=== PATIENT | male | born 1955 | race Caucasian/White ===

== ENCOUNTER 2022-09-15 10:33 | Inpatient (IN) | payer MEDICARE, OTHER ==
[2022-09-15] MEDS ORDERED: VANCOMYCIN IV PER PHARMACY 1 EACH MISC MISCELLANE PRN (10:54)
[2022-09-15] MEDS ORDERED: VANCOMYCIN 1,500 MG in SODIUM CHLORIDE 0.9% 500 ML 500 ML IVPB STA (10:58)
--- NOTE | 2022-09-15 11:18 | ED ---
General Adult HPI - General Chief complaint: Shortness of Breath Stated complaint: SOB Time Seen by Provider: 09/15/22 10:42 Source: patient, RN notes reviewed, old records reviewed Mode of arrival: ambulatory Limitations: no limitations - History of Present Illness Initial comments: Patient is a 67-year-old male who does not follow up with a physician presents emergency Department complaining of shortness of breath for one week. States it has been getting noticeably worse over the last week. States he may been present previously. Normally sleeps on 3 pillows at home and still has shortness of breath. Denies paroxysmal nocturnal dyspnea. Endorses worsening generalized belly distention with no pain as well as bilateral lower extremity swelling. Denies chest pain. Does endorse exertional shortness of breath. 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 Denies any nausea, vomiting, abdominal pain. Denies any cardiac history. States he does not follow up with her physician. Has not is some weeping excoriations located on the right lower extremity as well as a wound located over the dorsal aspect of the left foot. Denies any pain in the right leg but does have some pain in the left foot. No known history of diabetes. States the wound started is a bruise but is now an open wound. Some mild purulent discharge per patient. No other acute complaints at this time. Presents for further evaluation at this time. - Related Data Home Medications Medication Instructions Recorded Confirmed No Known Home Medications 09/15/22 09/15/22 Allergies Allergy/AdvReac Type Severity Reaction Status Date / Time No Known Allergies Allergy Verified 09/15/22 10:54 Review of Systems ROS Statement: Those systems with pertinent positive or pertinent negative responses have been documented in the HPI. Review of Systems: CONST: Denies fever EYES: Denies blurry vision ENT: Denies nasal congestion C/V: Denies Chest pain RESP: Endorses Shortness of breath GI: Denies abdominal pain : Denies dysuria SKIN: Endorses left foot wound MSK: Denies joint pain. NEURO: Denies headache ROS Other: All systems not noted in ROS Statement are negative. Past Medical History Past Medical History: No Reported History History of Any Multi-Drug Resistant Organisms: None Reported Past Surgical History: No Surgical Hx Reported Past Psychological History: No Psychological Hx Reported Smoking Status: Current every day smoker Past Alcohol Use History: None Reported Past Drug Use History: Marijuana General Exam - General Exam Comments Initial Comments: General: Appears in no acute distress. HEAD: Normal with no signs of head trauma. EYES: PERRLA, EOMI, conjunctiva normal, no discharge. ENT: Hearing grossly intact, normal oropharynx. RESPIRATORY: Mild coarse breath sounds in bilateral lung bases. No wheezing. No hypoxia at rest. Mild increased work of breathing. C/V: Regular rate and rhythm. S1 and S2 auscultated, significant bilateral lower extremity symmetrical pitting edema, peripheral pulses 2+ and intact throughout ABD: Abdomen is mildly distended. Soft and nontender. EXT: Normal range of motion, no obvious deformity SKIN: Appears to be venous stasis wound located over the left dorsal foot. Also has a weeping venous-stasis excoriations located over the right aguilar. NEURO: Alert and oriented 4. Limitations: no limitations Course Vital Signs 09/15/22 09/15/22 09/15/22 10:39 11:53 12:44 Temperature 97.9 F Pulse Rate 99 94 88 Respiratory 24 22 18 Rate Blood Pressure 121/84 116/82 O2 Sat by Pulse 96 97 98 Oximetry Medical Decision Making - Medical Decision Making Was pt. sent in by a medical professional or institution (, PA, PASSENGER VESSEL CHEF, urgent care, hospital, or penitentiary...) When possible be specific @ -No Did you speak to anyone other than the patient for history (EMS, parent, family, police, friend...)? What history was obtained from this source @ -No Did you review nursing and triage notes (agree or disagree)? Why? @ -I reviewed and agree with nursing and triage notes Were old charts reviewed (outside hosp., previous admission, EMS record, old EKG, old radiological studies, urgent care reports/EKG's, penitentiary records)? Report findings @ -No old charts were reviewed Differential Diagnosis (chest pain, altered mental status, abdominal pain women, abdominal pain men, vaginal bleeding, weakness, fever, dyspnea, syncope, heada basil, dizziness, GI bleed, back pain, seizure, CVA, palpatations, mental health, musculoskeletal)? @ -Differential Dyspnea: Coronary syndrome, arrhythmia, tamponade, asthma, COPD, pulmonary embolism, pneumonia, pneumothorax, pulmonary effusion, anaphylaxis, diabetic ketoacidosis, flailed chest, pulmonary contusion, diaphragmatic rupture, anemia, neuromuscular, this is not meant to be an all-inclusive list. EKG interpreted by me (3pts min.). @ -As above X-rays interpreted by me (1pt min.). @ -Chest x-ray shows right-sided pleural effusions as well as a bilateral pulmonary vascular congestion. Foot x-ray shows cellulitis. No osteomyelitis. CT interpreted by me (1pt min.). @ -CT PE negative for pulmonary embolism. CT of the pelvis shows ascites but no other acute intra-abdominal process. U/S interpreted by me (1pt. min.). @ -None done What testing was considered but not performed or refused? (CT, X-rays, U/S, labs)? Why? @ -None What meds were considered but not given or refused? Why? @ -None Did you discuss the management of the patient with other professionals (professionals i.e. , PA, PASSENGER VESSEL CHEF, lab, RT, psych nurse, health social work professor, trimmer machine, teacher, production officer, case management social worker)? Give summary @ -No Was smoking cessation discussed for >3mins.? @ -No Was critical care preformed (if so, how long)? @ -No Were there social determinants of health that impacted care today? How? (Homelessness, low income, unemployed, alcoholism, drug addiction, transportation, low edu. Level, literacy, decrease access to med. care, fpc, rehab)? @ -No Was there de-escalation of care discussed even if they declined (Discuss DNR or withdrawal of care, Hospice)? DNR status @ -No What co-morbidities impacted this encounter? (DM, HTN, Smoking, COPD, CAD, Cancer, CVA, ARF, Chemo, Hep., AIDS, mental health diagnosis, sleep apnea, morbid obesity)? @ -None Was patient admitted / discharged? Hospital course, mention meds given and route, prescriptions, significant lab abnormalities, going to OR and other p ertinent info. @ -Based on the patient's presentation and physical exam, I do think thinks that he is having cardiopulmonary etiology for his current symptoms. I suspect diagnosis of congestive heart failure as he is having worsening exertional dyspnea, abdominal distention, shortness of breath, lower extremity edema. We will obtain cardio pulmonary labs, as well as an x-ray of the left foot and chest x-ray. He'll be started on vancomycin after obtaining wound cultures as well as blood cultures as the patient does appear to have a left foot infection and cellulitis with an open wound. He was in agreement this plan. Vital signs are within acceptable limits at rest. We will walk the patient to assess for any hypoxia. He is in some increased work of breathing at rest. Patient's chest x-ray shows bilateral pulmonary vascular congestion as well as right-sided pleural effusion. EKG shows no signs of acute ischemia. Laboratory studies are remarkable for a elevated BNP of 8800. Troponin is undetectable. On reevaluation, due to the patient's increased work of breathing, and cannot definitively rule out a clot at this time we did discuss obtaining CT imaging w hich we will do at this time. I'll also allow us to further characterize the patient's pleural effusion on the right. He was in agreement this plan. CT PE negative for pulmonary embolism. CT abdomen pelvis negative for any obvious acute process other than ascites likely from his CHF. I discussed results with the patient. He expressed understanding He will be admitted. Echo is ordered. Started on Lasix. Cardiology consulted. Discussed the admission with the admitting team Dr. Pete who accepted the patient. Undiagnosed new problem with uncertain prognosis? @ -No Drug Therapy requiring intensive monitoring for toxicity (Heparin, Nitro, Insulin, Cardizem)? @ -No Were any procedures done? @ -No Diagnosis/symptom? @ -New-onset CHF Acute, or Chronic, or Acute on Chronic? @ -Acute Uncomplicated (without systemic symptoms) or Complicated (systemic symptoms)? @ -Complicated Side effects of treatment? @ -none Exacerbation, Progression, or Severe Exacerbation] @ -no Poses a threat to life or bodily function? @ -Yes, if untreated can result in significant morbidity and mortality. Diagnosis/symptom? @ -Left foot cellulitis Acute, or Chronic, or Acute on Chronic? @ -Acute Uncomplicated (without systemic symptoms) or Complicated (systemic symptoms)? @ -Uncomplicated Side effects of treatment? @ -none Exacerbation, Progression, or Severe Exacerbation] @ -no Poses a threat to life or bodily function? @ -no - Lab Data Result diagrams: 09/15/22 11:07 09/15/22 11:45 Lab Results 09/15/22 09/15/22 09/15/22 Range/Units 11:07 11:07 11:07 WBC 7.7 (3.8-10.6) k/uL RBC 5.25 (4.30-5.90) m/uL Hgb 14.9 (13.0-17.5) gm/dL Hct 44.6 (39.0-53.0) % MCV 85.0 (80.0-100.0) fL MCH 28.3 (25.0-35.0) pg MCHC 33.4 (31.0-37.0) g/dL RDW 13.8 (11.5-15.5) % Plt Count 205 (150-450) k/uL MPV 11.4 Neutrophils % 78 % Lymphocytes % 14 % Monocytes % 5 % Eosinophils % 1 % Basophils % 0 % Neutrophils # 6.1 (1.3-7.7) k/uL Lymphocytes # 1.1 (1.0-4.8) k/uL Monocytes # 0.4 (0-1.0) k/uL Eosinophils # 0.1 (0-0.7) k/uL Basophils # 0.0 (0-0.2) k/uL PT 11.7 (9.0-12.0) sec INR 1.1 (<1.2) APTT 27.4 (22.0-30.0) sec D-Dimer 0.53 (<0.60) mg/L FEU Sodium (137-145) mmol/L Potassium (3.5-5.1) mmol/L Chloride (98-107) mmol/L Carbon Dioxide (22-30) mmol/L Anion Gap mmol/L BUN (9-20) mg/dL Creatinine (0.66-1.25) mg/dL Est GFR (CKD-EPI)AfAm (>60 ml/min/1.73 sqM) Est GFR (CKD-EPI)NonAf (>60 ml/min/1.73 sqM) Glucose (74-99) mg/dL Plasma Lactic Acid Maikel (0.7-2.0) mmol/L Calcium (8.4-10.2) mg/dL Magnesium (1.6-2.3) mg/dL Total Bilirubin (0.2-1.3) mg/dL AST (17-59) U/L ALT (4-49) U/L Alkaline Phosphatase (38-126) U/L Troponin I (0.000-0.034) ng/mL NT-Pro-B Natriuret Pep pg/mL Total Protein (6.3-8.2) g/dL Albumin (3.5-5.0) g/dL Influenza Type A (PCR) (Not Detectd) Influenza Type B (PCR) (Not Detectd) RSV (PCR) (Not Detectd) SARS-CoV-2 (PCR) (Not Detectd) 09/15/22 09/15/22 09/15/22 Range/Units 11:08 11:45 11:45 WBC (3.8-10.6) k/uL RBC (4.30-5.90) m/uL Hgb (13.0-17.5) gm/dL Hct (39.0-53.0) % MCV (80.0-100.0) fL MCH (25.0-35.0) pg MCHC (31.0-37.0) g/dL RDW (11.5-15.5) % Plt Count (150-450) k/uL MPV Neutrophils % % Lymphocytes % % Monocytes % % Eosinophils % % Basophils % % Neutrophils # (1.3-7.7) k/uL Lymphocytes # (1.0-4.8) k/uL Monocytes # (0-1.0) k/uL Eosinophils # (0-0.7) k/uL Basophils # (0-0.2) k/uL PT (9.0-12.0) sec INR (<1.2) APTT (22.0-30.0) sec D-Dimer (<0.60) mg/L FEU Sodium (137-145) mmol/L Potassium (3.5-5.1) mmol/L Chloride (98-107) mmol/L Carbon Dioxide (22-30) mmol/L Anion Gap mmol/L BUN (9-20) mg/dL Creatinine (0.66-1.25) mg/dL Est GFR (CKD-EPI)AfAm (>60 ml/min/1.73 sqM) Est GFR (CKD-EPI)NonAf (>60 ml/min/1.73 sqM) Glucose (74-99) mg/dL Plasma Lactic Acid Maikel 1.1 (0.7-2.0) mmol/L Calcium (8.4-10.2) mg/dL Magnesium (1.6-2.3) mg/dL Total Bilirubin (0.2-1.3) mg/dL AST (17-59) U/L ALT (4-49) U/L Alkaline Phosphatase (38-126) U/L Troponin I <0.012 (0.000-0.034) ng/mL NT-Pro-B Natriuret Pep pg/mL Total Protein (6.3-8.2) g/dL Albumin (3.5-5.0) g/dL Influenza Type A (PCR) Not Detected (Not Detectd) Influenza Type B (PCR) Not Detected (Not Detectd) RSV (PCR) Not Detected (Not Detectd) SARS-CoV-2 (PCR) Not Detected (Not Detectd) 09/15/22 09/15/22 Range/Units 11:45 11:45 WBC (3.8-10.6) k/uL RBC (4.30-5.90) m/uL Hgb (13.0-17.5) gm/dL Hct (39.0-53.0) % MCV (80.0-100.0) fL MCH (25.0-35.0) pg MCHC (31.0-37.0) g/dL RDW (11.5-15.5) % Plt Count (150-450) k/uL MPV Neutrophils % % Lymphocytes % % Monocytes % % Eosinophils % % Basophils % % Neutrophils # (1.3-7.7) k/uL Lymphocytes # (1.0-4.8) k/uL Monocytes # (0-1.0) k/uL Eosinophils # (0-0.7) k/uL Basophils # (0-0.2) k/uL PT (9.0-12.0) sec INR (<1.2) APTT (22.0-30.0) sec D-Dimer (<0.60) mg/L FEU Sodium 138 (137-145) mmol/L Potassium 4.2 (3.5-5.1) mmol/L Chloride 102 (98-107) mmol/L Carbon Dioxide 30 (22-30) mmol/L Anion Gap 6 mmol/L BUN 21 H (9-20) mg/dL Creatinine 0.82 (0.66-1.25) mg/dL Est GFR (CKD-EPI)AfAm >90 (>60 ml/min/1.73 sqM) Est GFR (CKD-EPI)NonAf >90 (>60 ml/min/1.73 sqM) Glucose 219 H (74-99) mg/dL Plasma Lactic Acid Maikel (0.7-2.0) mmol/L Calcium 8.9 (8.4-10.2) mg/dL Magnesium 1.7 (1.6-2.3) mg/dL Total Bilirubin 0.7 (0.2-1.3) mg/dL AST 17 (17-59) U/L ALT 18 (4-49) U/L Alkaline Phosphatase 82 (38-126) U/L Troponin I (0.000-0.034) ng/mL NT-Pro-B Natriuret Pep 8850 pg/mL Total Protein 6.2 L (6.3-8.2) g/dL Albumin 3.6 (3.5-5.0) g/dL Influenza Type A (PCR) (Not Detectd) Influenza Type B (PCR) (Not Detectd) RSV (PCR) (Not Detectd) SARS-CoV-2 (PCR) (Not Detectd) - EKG Data -: EKG Interpreted by Me EKG Comments: 12-lead Electrocardiogram Interpretation Note EKG was reviewed and interpreted by myself. 12-lead ECG performed at 1048 is interpreted by me as revealing normal sinus rhythm at a rate of 96 beats per minute. With indeterminate axis. NE interval is 148 ms, QRS duration is 154 ms, QTc is 446 ms.. Patient does have right bundle-branch block morphology with some T-wave inversions located in V2 through V4. No ST segment elevations or depressions of note. No prior EKG for comparison. R wave progression across the precordium was satisfactory. No prior EKG for comparison. Disposition Clinical Impression: CHF (congestive heart failure), Cellulitis, Dyspnea Disposition: ADMITTED IP TO THIS HOSP Condition: Stable Referrals: None,Stated [Primary Care Provider] - 1-2 days Time of Disposition: 14:25
--- NOTE | 2022-09-15 11:28 | XR ---
EXAMINATION TYPE: XR chest 2V DATE OF EXAM: 09/15/2022 COMPARISON: NONE HISTORY: Shortness of breath TECHNIQUE: Frontal and lateral views of the chest are obtained. FINDINGS: Scattered senescent parenchymal changes noted. Hyperinflation compatible with COPD. Right lower lobe infiltrate and pleural effusion noted. Correlate for pneumonia. Heart size is stable. Mediastinal structures are stable and grossly unremarkable. No evidence for hilar prominence. Degenerative changes dorsal spine. IMPRESSION: 1. Right lower lobe infiltrate and pleural effusion noted. Correlate for pneumonia.
--- NOTE | 2022-09-15 11:29 | XR ---
EXAMINATION TYPE: XR foot limited LT DATE OF EXAM: 09/15/2022 CLINICAL HISTORY: pain TECHNIQUE: Frontal, lateral and oblique images of the left foot are obtained. COMPARISON: None. FINDINGS: There is no acute fracture/dislocation evident. The joint spaces appear within normal yan its. Soft tissue swelling noted overlying the dorsum of the foot. Vascular calcifications identified. No bony destructive process identified at this time. IMPRESSION: Correlate for soft tissue cellulitis.
[2022-09-15 11:33] LABS: Basophils % (A) 0 %; Eosinophils # (A) 0.1 k/uL (0-0.7); Eosinophils % (A) 1 %; HCT 44.6 % (39.0-53.0); HGB 14.9 gm/dL (13.0-17.5); Lymphocytes # (A) 1.1 k/uL (1.0-4.8); Lymphocytes % (A) 14 %; MCH 28.3 pg (25.0-35.0); MCHC 33.4 g/dL (31.0-37.0); Mean Platelet Volume 11.4; Monocytes # (A) 0.4 k/uL (0-1.0); Monocytes % (A) 5 %; Neutrophils # (A) 6.1 k/uL (1.3-7.7); Neutrophils % (A) 78 %; Platelet Count 205 k/uL (150-450); RBC 5.25 m/uL (4.30-5.90); RDW 13.8 % (11.5-15.5); WBC 7.7 k/uL (3.8-10.6)
[2022-09-15 12:10] LABS: INR 1.1 (<1.2); Partial Thromboplastin Time 27.4 sec (22.0-30.0); Prothrombin Time 11.7 sec (9.0-12.0)
[2022-09-15 12:33] LABS: ALT 18 U/L (4-49); AST 17 U/L (17-59); African American GFR (CKD) >90 (>60 ml/min/1.73 sqM); Albumin 3.6 g/dL (3.5-5.0); Alkaline Phosphatase 82 U/L (38-126); Anion Gap 6 mmol/L; Blood Urea Nitrogen 21 mg/dL (9-20); Calcium 8.9 mg/dL (8.4-10.2); Carbon Dioxide 30 mmol/L (22-30); Chloride 102 mmol/L (98-107); Glucose 219 mg/dL (74-99); Magnesium 1.7 mg/dL (1.6-2.3); Non-African American GFR(CKD) >90 (>60 ml/min/1.73 sqM); Potassium 4.2 mmol/L (3.5-5.1); Sodium 138 mmol/L (137-145); Total Bilirubin 0.7 mg/dL (0.2-1.3); Total Protein 6.2 g/dL (6.3-8.2)
--- NOTE | 2022-09-15 14:09 | CT ---
EXAMINATION TYPE: CT chest angio for PE DATE OF EXAM: 09/15/2022 COMPARISON: None HISTORY: SOB CT DLP: 698.3 mGycm CONTRAST: CT chest with contrast and 3D reconstruction with MIP imaging is performed with IV Contrast, patient injected with 100 mL of Isovue 300. Contrast-enhanced CT of the chest was performed through the course of the pulmonary arteries with mackenzie g and mediastinal window settings submitted. 3D reconstruction with MIP imaging was also performed. PULMONARY ARTERIES: The pulmonary arteries and their major tributaries are patent. I do not see gio dence for sizable filling defect to suggest pulmonary embolic process. LUNGS: The lungs are clear and free of infiltrate. No evidence for atelectasis. No pulmonary nodule or mass is detected. Moderate bilateral pleural effusions noted right greater than left with maximal AP dimension of 6.2 cm on the right and approximately 3.4 cm in length. Bilateral compressive atelec tasis noted. MEDIASTINUM: Thoracic aorta is of normal caliber,however, evaluation is limited given timing of the contrast bolus. If there is concern for thoracic aortic pathology consider MICHELLE. Correlate clinicall y . The heart is not enlarged. No evidence for mediastinal mass. No mediastinal lymph nodes greater than 1cm. HILAR STRUCTURES: No evidence for mass. No hilar lymph nodes greater than 1 cm. UPPER ABDOMEN: No significant abnormality is seen. IMPRESSION: 1. No evidence for Pulmonary embolism at this time.
--- NOTE | 2022-09-15 14:12 | CT ---
EXAMINATION TYPE: CT abdomen pelvis w con DATE OF EXAM: 09/15/2022 COMPARISON: None HISTORY: SOB, abdominal tenderness CT DLP: 2668.1 mGycm CONTRAST: CT scan of the abdomen and pelvis is performed without Oral Contrast and with IV Contrast, patient in jected with 100 mL of Isovue 300. FINDINGS: LUNG BASES-: No visible nodule. No infiltrate. Bilateral pleural effusions noted right greater than left with compressive atelectasis. LIVER/GB: No calcified gallstones. No space occupying hepatic lesion. Biliary tree is of normal ca liber. There is a small amount of ascites surrounding the liver. Ascites extends into the right parac olic gutter and into the pelvis. PANCREAS: No inflammation. No distinct mass. SPLEEN: No splenic enlargement. No lesion seen. Fluid also surrounds the spleen. ADRENALS: No nodule. No thickening. KIDNEYS/BLADDER: No hydronephrosis. 4 mm nonobstructing calculus upper pole left kidney. No distinct renal mass. Urinary bladder grossly unremarkable. BOWEL: Normal appendix. Normal bowel caliber. There is wall thickening of jejunal loops may reflect enteritis. Moderate fecal stasis noted. GENITAL ORGANS: No gross abnormality. LYMPH NODES: No greater than 1cm abdominal or pelvic lymph nodes are appreciated. AORTA: No significant abnormality. OSSEOUS STRUCTURES: No significant abnormality is seen. OTHER: No significant additional abnormality is seen. IMPRESSION: 1. Correlate for small bowel enteritis. 2. Moderate bilateral pleural effusions and basilar compressive atelectasis. 3. Mild ascites throughout the abdomen. 4. Nonobstructing left renal calculus.
[2022-09-15] MEDS ORDERED: FUROSEMIDE 10 MG/ML 4 ML VIAL IV STA (14:36)
[2022-09-15] MEDS ORDERED: NALOXONE 0.4 MG/ML 1 ML VIAL IV PRN (14:37)
[2022-09-15] MEDS: HEPARIN SODIUM,PORCINE/PF 5,000 UNIT/0.5 ML SYRINGE SQ SCH ×2 (18:05→20:01)
[2022-09-15] MEDS: FUROSEMIDE 10 MG/ML 4 ML VIAL IV SCH (20:01)
[2022-09-16] MEDS ORDERED: VANCOMYCIN 1,500 MG in SODIUM CHLORIDE 0.9% 500 ML 500 ML IVPB SCH ×2
--- NOTE | 2022-09-16 02:15 | P.HPIM ---
History of Present Illness H&P Date: 09/15/22 Chief Complaint: Shortness of breath Patient is a 67-year-old male without significant past medical history, currently everyday smoker and daily marijuana use presents to ER with complaints of worsening shortness of breath, exertional dyspnea during the last 2 days. Symptoms have been present for the past 2 weeks patient also felt very weak. He has been having lower extremity worsening swelling. Was also having increased abdominal girth. Patient was using 3 pillows at home but still is becoming short of breath. Denies any complaints of chest pain. No nausea vomiting abdominal pain or diarrhea. Denies recent illnesses. No prior history of coronary artery disease.. Patient was having severe leg swelling and does have a wound over the dorsum of the left foot. No prior history of diabetes. Denies any fever or chills. Chest x-ray showed right lower lobe infiltrate and pleural effusion noted. Correlate for pneumonia. Foot x-ray showed correlate for soft tissue cellulitis EKG showed sinus rhythm. CTA chest showed no evidence for PE. Lungs are clear and free of infiltrate. No pulmonary nodules or masses detected. Moderate bilateral pleural effusions noted right greater than left with bilateral compressive atelectasis. CT of the abdomen pelvis. Correlate for small bowel enteritis. Mild ascites throughout the abdomen. Nonobstructing renal calculus. Laboratory data showed WBC 7.7 hemoglobin 14.9 and platelets 205 D-dimer 0.53 Sodium 138 potassium 4.2 chloride 102 bicarb is 30 BUN 21 creatinine 0.8 and blood sugar is 219 Calcium 8.1 Loramyc not elevated proBNP 88.0 Influenza A, B and COVID-19 PCR and RSV not detected. Review of Systems Constitutional: Patient denies any fever or chills . Patient does have ge neralized weakness and weight gain. Abdomen: Patient denied any nausea or vomiting or abd. pain Cardiovascular: Patient denies any chest pain. Patient does have short of breath no palpitations. Bilateral lower extremity swelling. Orthopnea. No PND. Respiratory: patient denied any cough . no sputum production. Does have shortness of breath Neurologic: Patient denied any numbness or tingling headache. Musculoskeletal: Patient denies any complaints of joint swelling or deformity. Skin: Negative Psychiatric: Negative Endocrine: No heat or cold intolerance. No recent weight gain. Genitourinary: No dysuria or hematuria. All other 14 point ROS negative except the above Past Medical History Past Medical History: No Reported History Additional Past Medical History / Comment(s): states it has been decades since he saw a physician History of Any Multi-Drug Resistant Organisms: None Reported Past Surgical History: No Surgical Hx Reported Past Anesthesia/Blood Transfusion Reactions: No Reported Reaction Past Psychological History: No Psychological Hx Reported Smoking Status: Current every day smoker Past Alcohol Use History: None Reported Past Drug Use History: Marijuana Additional Drug Use History / Comment(s): pt is a daily marijuana smoker Medications and Allergies Home Medications Medication Instructions Recorded Confirmed Type No Known Home Medications 09/15/22 09/15/22 History Allergies Allergy/AdvReac Type Severity Reaction Status Date / Time No Known Allergies Allergy Verified 09/15/22 10:54 Physical Exam Vitals: Vital Signs Temp Pulse Pulse Resp BP BP Pulse Ox 09/15/22 17:41 98.7 F 80 20 118/75 99 09/15/22 15:49 98 18 112/78 99 09/15/22 12:44 88 18 116/82 98 09/15/22 11:53 94 22 97 09/15/22 10:39 97.9 F 99 24 121/84 96 Intake and Output 09/15/22 09/15/22 09/15/22 06:59 14:59 22:59 Other: Weight 99.79 kg 99.79 kg PHYSICAL EXAMINATION: Patient is sitting on the side of the bed. Appears to be in distress due to shortness of breath., awake alert and oriented.. HEENT: Normocephalic. Neck is supple. Pupils reactive. Nostrils clear. Oral cavity is moist. Neck reveals no JVD, carotid bruits, or thyromegaly. CHEST EXAMINATION: Trachea is central. Symmetrical expansion. Bibasilar diminished sounds and no wheezing. Nonlabored breathing.. CARDIAC: Normal S1, S2 with no gallops. No murmurs ABDOMEN: Soft. Bowel sounds present. Nontender. No organomegaly. No abdominal bruits. Extremities: Bilateral lower extremity with 3+ edema. No clubbing or cyanosis. Left dorsal foot wound 4 x 4 cm with thick eschar and surrounding redness. Neurologically awake, alert, oriented x3 with well-coordinated movements. No focal deficits noted Skin: No rash or skin lesions. Psychiatric: Coperative. Nonsuicidal, Musculoskeletal: No joint swelling or deformity. Normal range of motion. Results CBC & Chem 7: 09/16/22 08:28 09/16/22 08:28 Labs: Abnormal Lab Results - Last 24 Hours (Table) 09/15/22 Range/Units 11:45 BUN 21 H (9-20) mg/dL Glucose 219 H (74-99) mg/dL Total Protein 6.2 L (6.3-8.2) g/dL Microbiology - Last 24 Hours (Table) 09/15/22 11:47 Wound Culture - Preliminary Foot - Left 09/15/22 11:47 Anaerobic Culture - Preliminary Foot - Left Thrombosis Risk Factor Assmnt - DVT/VTE Prophylaxis DVT/VTE Prophylaxis: Pharmacologic Prophylaxis ordered - Choose All That Apply Each Factor Represents 1 point: Heart failure (<1month), Medical pt on bed rest, Obesity (BMI >25), Swollen legs (current) Other Risk Factors: Yes Each Risk Factor Represents 2 Points: Age 61-74 years Other congenital or acquired thrombophilia - If yes, enter type in comment: No Thrombosis Risk Factor Assessment Total Risk Factor Score: 6 Thrombosis Risk Factor Assessment Level: High Risk Assessment and Plan Assessment: Acute CHF. Ejection fraction not known. New onset. Acute hypoxic respiratory failure secondary to above Bilateral pleural effusion and mild ascites likely due to CHF. Left foot wound on the dorsal surface with surrounding cellulitis Hyperglycemia. Follow-up A1c level. Morbid obesity with BMI 40.5 Ongoing nicotine addiction and marijuana use DVT prophylaxis with heparin subcu Plan: Patient will be continued on telemetry monitoring. Continue with Lasix 40 mg every 12 hourly and monitor renal function closely. Aspirin and lipid panel was ordered. 2D echocardiogram. Cardiology was consulted for evaluation. Patient will be continued on vancomycin and infectious is consult. Continue with wound care. Follow-up closely and prognosis guarded at this time. Time with Patient: Greater than 30
[2022-09-16] MEDS: VANCOMYCIN 1,500 MG in SODIUM CHLORIDE 0.9% 500 ML 500 ML IVPB SCH ×2 (06:25→17:28)
[2022-09-16] MEDS: FUROSEMIDE 10 MG/ML 4 ML VIAL IV SCH ×2 (08:10→20:28)
[2022-09-16] MEDS: carvediloL 3.125 MG TAB PO SCH ×2 (08:10→16:17)
[2022-09-16] MEDS: ASPIRIN 81 MG PO SCH (08:10)
[2022-09-16] MEDS: HEPARIN SODIUM,PORCINE/PF 5,000 UNIT/0.5 ML SYRINGE SQ SCH ×3 (08:10→23:55)
--- NOTE | 2022-09-16 09:08 | P.CRDCN ---
History of Present Illness Consult date: 09/16/22 Consult reason: congestive heart failure (new) History of present illness: History of present illness: This is a 67-year-old male that does not follow with a PCP usually goes to urgent care for medical care. Patient denies history of cardiac disease. Patient is not on any home medications. We have been asked to evaluate the patient for new heart failure. Patient presented to the hospital due to shortness of breath going on for a week and gradually worsening. He denies having any chest pain. Has been sleeping on 3 pillows. No PND. Patient has had increased edema to the lower extremities and cellulitis was diagnosed of the left lower leg. No fever or chills. No cough. EKG sinus rhythm with left ventricle hypertrophy, right bundle branch block Troponin negative 1. ProBNP 8850, CBC within normal limits. BUN 21, creatinine 0.8. Potassium 4.2. Blood sugar 219. Patient denies known history of diabetes Chest x-ray: Right lower lobe infiltrate and pleural effusion correlate for pneumonia. CTA no pulmonary embolism. Moderate bilateral pleural effusion right greater than left. Review Of Systems: At the time of my evaluation: Constitutional: No fever, no chills. No weakness, fatigue or lethargy. EENT: No headache. No dizziness. Lungs: Reports shortness of breath, cough, no sputum production. No wheezing. Cardiovascular: No chest pain, reports lower extremity edema. No palpitations. No paroxysmal nocturnal dyspnea. Reports orthopnea. No lightheadedness or dizziness. No syncopal episodes. Abdominal: No abdominal pain. No nausea, vomiting. No diarrhea. No constipation. No bloody or tarry stools. Musculoskeletal: No myalgias. No muscle weakness, no frequent falls. No back pain. No neck pain. Integumentary: Cellulitis left lower leg, linear abrasions to the right lower leg. No rash. No unusual bruising. Neurologic: No aphasia. No facial droop. No change in mentation. No head injury. No headache. Physical examination: Gen: This is a morbidly obese 67-year-old male. Dressing appears to be comfortable. No acute distress. VS: reviewed HEENT: Head is atraumatic, normocephalic. Pupils equal, round. Sclerae is anicteric. NECK: Supple. No JVD. . LUNGS: Diminished bilaterally. No wheezes or rhonchi. No intercostal retractions. HEART: Regular rate and rhythm. No murmur. ABDOMEN: Soft No tenderness. Obese. EXTREMITIES: 12 plus pedal edema. Linear abrasions to the right lower extremity, dressing in place to the left ankle. NEUROLOGICAL: Patient is awake, alert and oriented x3. Assessment: Bilateral pleural effusions Acute diastolic heart failure-echocardiogram pending Probable new diagnosis of diabetes Plan: Continue patient on IV Lasix 40 mg every 12 hours, monitor I&O, daily weights, electrolytes and renal function Start patient on Coreg 3.125 mg twice daily Obtain 2-D echocardiogram and Doppler study to assess cardiac structure and function-report pending Further recommendations to follow based upon clinical course Thank you kindly for this consultation. Nurse practitioner note has been reviewed, I agree with documented findings and plan of care. Patient was seen and examined. Past Medical History Past Medical History: No Reported History Additional Past Medical History / Comment(s): states it has been decades since he saw a physician History of Any Multi-Drug Resistant Organisms: None Reported Past Surgical History: No Surgical Hx Reported Past Anesthesia/Blood Transfusion Reactions: No Reported Reaction Past Psychological History: No Psychological Hx Reported Smoking Status: Current every day smoker Past Alcohol Use History: None Reported Past Drug Use History: Marijuana Additional Drug Use History / Comment(s): pt is a daily marijuana smoker Medications and Allergies Home Medications Medication Instructions Recorded Confirmed Type No Known Home Medications 09/15/22 09/15/22 History Allergies Allergy/AdvReac Type Severity Reaction Status Date / Time No Known Allergies Allergy Verified 09/15/22 10:54 Physical Exam Vitals: Vital Signs Temp Pulse Pulse Resp BP BP Pulse Ox 09/16/22 04:00 97.9 F 78 16 98/61 98 09/16/22 02:00 78 18 09/16/22 00:00 97.9 F 78 18 97/61 96 09/15/22 20:00 97.8 F 86 20 112/81 98 09/15/22 17:41 98.7 F 80 20 118/75 99 09/15/22 15:49 98 18 112/78 99 09/15/22 12:44 88 18 116/82 98 09/15/22 11:53 94 22 97 09/15/22 10:39 97.9 F 99 24 121/84 96 Intake and Output 04/04/2909/16/22 09/16/22 22:59 06:59 14:59 Output Total 1675 Balance -1675 Output: Urine 1675 Other: Voiding Method Urinal Urinal Weight 99.79 kg 113.7 kg Results 09/15/22 11:07 09/15/22 11:45 Cardiac Enzymes 09/15/22 09/15/22 Range/Units 11:45 11:45 AST 17 (17-59) U/L Troponin I <0.012 (0.000-0.034) ng/mL Coagulation 09/15/22 Range/Units 11:07 PT 11.7 (9.0-12.0) sec APTT 27.4 (22.0-30.0) sec CBC 09/15/22 Range/Units 11:07 WBC 7.7 (3.8-10.6) k/uL RBC 5.25 (4.30-5.90) m/uL Hgb 14.9 (13.0-17.5) gm/dL Hct 44.6 (39.0-53.0) % Plt Count 205 (150-450) k/uL Comprehensive Metabolic Panel 09/15/22 Range/Units 11:45 Sodium 138 (137-145) mmol/L Potassium 4.2 (3.5-5.1) mmol/L Chloride 102 (98-107) mmol/L Carbon Dioxide 30 (22-30) mmol/L BUN 21 H (9-20) mg/dL Creatinine 0.82 (0.66-1.25) mg/dL Glucose 219 H (74-99) mg/dL Calcium 8.9 (8.4-10.2) mg/dL AST 17 (17-59) U/L ALT 18 (4-49) U/L Alkaline Phosphatase 82 (38-126) U/L Total Protein 6.2 L (6.3-8.2) g/dL Albumin 3.6 (3.5-5.0) g/dL Current Medications Generic Name Dose Route Start Last Admin Trade Name Freq PRN Reason Stop Dose Admin Aspirin 81 mg 09/16/22 09:00 Aspirin 81 Mg PO DAILY DAVID Furosemide 40 mg 09/15/22 21:00 09/15/22 20:01 Furosemide 10 Mg/Ml 4 Ml Vial IV 40 mg Q12HR DAVDI Administration Heparin Sodium (Porcine) 5,000 unit 09/15/22 16:00 09/15/22 20:01 Heparin Sodium,Porcine/Pf 5,000 Unit/0.5 Ml Syringe SQ 5,000 unit Q8HR DAVID Administration Vancomycin HCl 1,500 mg/ 500 mls @ 167 mls/hr 09/16/22 06:00 09/16/22 06:25 Sodium Chloride IVPB 167 mls/hr Q12H DAVID Administration Naloxone HCl 0.2 mg 09/15/22 14:37 Naloxone 0.4 Mg/Ml 1 Ml Vial IV Q2M PRN Opioid Reversal Intake and Output 09/15/22 09/16/22 09/16/22 22:59 06:59 14:59 Output Total 1675 Balance -1675 Output: Urine 1675 Other: Voiding Method Urinal Urinal Weight 99.79 kg 113.7 kg 09/15/22 11:07 09/15/22 11:45
[2022-09-16 10:06] LABS: Basophils % (A) 0 %; Eosinophils # (A) 0.1 k/uL (0-0.7); Eosinophils % (A) 2 %; HCT 42.6 % (39.0-53.0); HGB 13.6 gm/dL (13.0-17.5); Lymphocytes # (A) 1.2 k/uL (1.0-4.8); Lymphocytes % (A) 18 %; MCH 27.5 pg (25.0-35.0); MCHC 31.9 g/dL (31.0-37.0); MCV 86.2 fL (80.0-100.0); Mean Platelet Volume 8.9; Monocytes # (A) 0.4 k/uL (0-1.0); Monocytes % (A) 6 %; Neutrophils # (A) 4.9 k/uL (1.3-7.7); Neutrophils % (A) 72 %; Platelet Count 181 k/uL (150-450); RBC 4.94 m/uL (4.30-5.90); RDW 13.4 % (11.5-15.5); WBC 6.8 k/uL (3.8-10.6)
--- NOTE | 2022-09-16 10:10 | CA ---
Transthoracic Echo Report Name: Chester Gayle Age: 67 Gender: M : 1955 Exam Date: 09/15/2022 14:53 Exam Location: [facility] Ht (in): 66 Wt (lb): 225 Ordering Physician: Gino Malcolm MD Attending/Referring Phys: Patient Care Nursing Assistant Kevin Duarte RDCS Procedure CPT: Indications: chf Cardiac Hx: HTN; CP: Obesity; SOB; Technical Quality: Technically difficult study Contrast 1: Lumason Total Dose (mL): 6 Contrast 2: Total Dose (mL): MEASUREMENTS (Male / Female) Normal Values 2D ECHO LV Diastolic Diameter PLAX 5.0 cm 4.2 - 5.9 / 3.9 - 5.3 cm LV Systolic Diameter PLAX 4.5 cm LV Fractional Shortening PLAX 10.0 % IVS Diastolic Thickness 1.2 cm 0.6 - 1.0 / 0.6 - 0.9 cm IVS Systolic Thickness 1.7 cm LVPW Diastolic Thickness 1.4 cm 0.6 - 1.0 / 0.6 - 0.9 cm LVPW Systolic Thickness 1.3 cm LV Relative Wall Thickness 0.5 RV Internal Dim ED PLAX 3.1 cm LVOT Diameter 2.1 cm LA Systolic Diameter LX 4.3 cm 3.0 - 4.0 / 2.7 - 3.8 cm Ascending Aorta Diameter 2.5 cm M-MODE Aortic Root Diameter MM 3.3 cm LA Systolic Diameter MM 4.0 cm LA Ao Ratio MM 1.2 MV E Point Septal Separation 2.1 cm AV Cusp Separation MM 1.2 cm DOPPLER AV Peak Velocity 457.8 cm/s AV Peak Gradient 83.8 mmHg AV Mean Velocity 340.9 cm/s AV Mean Gradient 51.5 mmHg AV Velocity Time Integral 95.9 cm AI Peak Velocity 388.3 cm/s AI Peak Gradient 60.3 mmHg AI Deceleration [place] 168.7 cm/s??? AI Pressure Half Time 667.6 ms MV Deceleration [place] 924.4 cm/s??? MR Peak Velocity 408.9 cm/s MR Peak Gradient 66.9 mmHg Mitral E Point Velocity 76.8 cm/s Mitral A Point Velocity 55.1 cm/s Mitral E to A Ratio 1.4 MV Deceleration Time 83.1 ms MV E' Velocity 4.0 cm/s Mitral E to MV E' Ratio 19.1 TR Peak Velocity 260.4 cm/s TR Peak Gradient 27.1 mmHg Right Ventricular Systolic Press 35.1 mmHg PV Peak Velocity 65.4 cm/s PV Peak Gradient 1.7 mmHg FINDINGS Left Ventricle Left ventricular ejection fraction is estimated at 35-40 %. Borderline left ventricular hypertrophy. Grade 1 diastolic dysfunction. Reduced global left ventricular systolic function. Drain hypokinetic. Right Ventricle Normal right ventricular size and function. RVSP_ 35 mm Hg. Right Atrium Normal right atrial size. Left Atrium Normal left atrial size. Mitral Valve Mitral valve thickened. Trace to mild mitral regurgitation. Aortic Valve Aortic valve not well visualized. Diffuse thickening of the aortic valve cusps with reduced excursion. severe aortic stenosis with a peak gradient of 83.8 mmHg and a mean gradient of 51.5 mmHg. Ivny-[id number] aortic regurgitation. Tricuspid Valve Mild tricuspid regurgitation. Pulmonic Valve Trace to mild pulmonic regurgitation. Pericardium Normal pericardium. No pericardial effusion. Aorta Normal size aortic root and proximal ascending aorta. CONCLUSIONS Reduced LV systolic function ejection fraction 35% with reduced excursion of the aortic valve leaflets Calcific aortic valve with peak gradient of greater than 80 mmHg and a mean gradient of greater than 50 mmHg along with moderate aortic regurgitation in the setting of severely reduced LV function Severe aortic stenosis Previewed by: Dr. Gregorio Phillips MD (Electronically Signed) Final Date: 16 September 2022 10:09
[2022-09-16 10:23] LABS: African American GFR (CKD) >90 (>60 ml/min/1.73 sqM); Anion Gap 9 mmol/L; Blood Urea Nitrogen 21 mg/dL (9-20); Carbon Dioxide 30 mmol/L (22-30); Chloride 102 mmol/L (98-107); Glucose 166 mg/dL (74-99); Non-African American GFR(CKD) 87 (>60 ml/min/1.73 sqM); Potassium 3.8 mmol/L (3.5-5.1); Sodium 141 mmol/L (137-145)
[2022-09-16 15:57] LABS: Chol/HDL Ratio 3.57 Ratio; LDL Cholesterol,Calculated 90.5 mg/dL (0.0-131.0); VLDL Calculation 16.78 mg/dL (5.00-40.00)
[2022-09-16] MEDS: COLLAGENASE 250 UNIT/GM OINTMENT 30 GM TUBE TOPICAL SCH (17:06)
--- NOTE | 2022-09-16 17:33 | P.GSCN ---
History of Present Illness History of present illness: 67-year-old gentleman patient has been admitted patient has a wound on the foot on the dorsal aspect at the base of the third fourth and fifth toe with there are gangrene changes noted of the ports of the skin measurement is 3 x 4 cm there is some fluctuation noted guarded patient he had this wound for possible few weeks. He did not go to any physician involving the right foot Medical history no history of diabetes Patient has not seen any physician for long time personal history no known ALLERGY On examination femorals are 1+ PTDP not palpable there is a wound on the dorsal aspect of the Plan is debridement of the wound with local anesthesia with and also for deep culture Past Medical History Past Medical History: No Reported History Additional Past Medical History / Comment(s): states it has been decades since he saw a physician History of Any Multi-Drug Resistant Organisms: None Reported Past Surgical History: No Surgical Hx Reported Past Anesthesia/Blood Transfusion Reactions: No Reported Reaction Past Psychological History: No Psychological Hx Reported Smoking Status: Current every day smoker Past Alcohol Use History: None Reported Past Drug Use History: Marijuana Additional Drug Use History / Comment(s): pt is a daily marijuana smoker Medications and Allergies Home Medications Medication Instructions Recorded Confirmed Type No Known Home Medications 09/15/22 09/15/22 History Allergies Allergy/AdvReac Type Severity Reaction Status Date / Time No Known Allergies Allergy Verified 09/15/22 10:54 Surgical - Exam Vital Signs Temp Pulse Resp BP Pulse Ox 97.9 F 99 24 121/84 96 09/15/22 10:39 09/15/22 10:39 09/15/22 10:39 09/15/22 10:39 09/15/22 10:39 Results - Labs 09/16/22 08:28 09/16/22 08:28 Abnormal Lab Results - Last 24 Hours (Table) 09/16/22 09/16/22 Range/Units 08:28 08:28 BUN 21 H (9-20) mg/dL Glucose 166 H (74-99) mg/dL Hemoglobin A1c 9.1 H (0.0-6.0) % Microbiology - Last 24 Hours (Table) 09/15/22 11:47 Gram Stain - Final Foot - Left Wound Culture - Final 09/15/22 11:05 Blood Culture - Preliminary Blood No Growth after 24 hours 09/15/22 10:50 Blood Culture - Preliminary Blood No Growth after 24 hours 09/15/22 11:47 Anaerobic Culture - Preliminary Foot - Left Diabetes panel 09/16/22 09/16/22 Range/Units 08:28 08:28 Sodium 141 (137-145) mmol/L Potassium 3.8 (3.5-5.1) mmol/L Chloride 102 (98-107) mmol/L Carbon Dioxide 30 (22-30) mmol/L BUN 21 H (9-20) mg/dL Creatinine 0.91 (0.66-1.25) mg/dL Glucose 166 H (74-99) mg/dL Hemoglobin A1c 9.1 H (0.0-6.0) % Calcium 9.0 (8.4-10.2) mg/dL Triglycerides 83.90 (0.00-149.00) mg/dL HDL Cholesterol 41.70 (40.00-60.00) mg/dL Thyroid panel 09/16/22 Range/Units 08:28 TSH 2.600 (0.465-4.680) mIU/L Calcium panel 09/16/22 Range/Units 08:28 Calcium 9.0 (8.4-10.2) mg/dL Pituitary panel 09/16/22 Range/Units 08:28 Sodium 141 (137-145) mmol/L Potassium 3.8 (3.5-5.1) mmol/L Chloride 102 (98-107) mmol/L Carbon Dioxide 30 (22-30) mmol/L BUN 21 H (9-20) mg/dL Creatinine 0.91 (0.66-1.25) mg/dL Glucose 166 H (74-99) mg/dL Calcium 9.0 (8.4-10.2) mg/dL TSH 2.600 (0.465-4.680) mIU/L Adrenal panel 09/16/22 Range/Units 08:28 Sodium 141 (137-145) mmol/L Potassium 3.8 (3.5-5.1) mmol/L Chloride 102 (98-107) mmol/L Carbon Dioxide 30 (22-30) mmol/L BUN 21 H (9-20) mg/dL Creatinine 0.91 (0.66-1.25) mg/dL Glucose 166 H (74-99) mg/dL Calcium 9.0 (8.4-10.2) mg/dL
--- NOTE | 2022-09-16 18:26 | P.PCN ---
Description of Procedure: Preop diagnoses is chronic wound right foot dorsum aspect of the foot at the base of the third and fourth and fifth toe measurement is 4 x 3 cm Post op diagnoses is the same measurement is 4 x 3 x 1 cm Procedure debridement of the wound right foot dorsum aspect down to superficial fat and fascia measurement is 4 x 3 x 1 cm Right foot was prepped and draped applied sterile manner 1% lidocaine for infected using knife we excised the skin subcu tissue and fat and down to the fascia devitalized tissue was removed which was sent for deep culture there some bleeding point which was controlled and wound was irrigated with hydrogen peroxide and saline. Then we use Santyl cream and dressing applied patient are to the procedure well blood loss is minimal Plan is we will change her dressing on Wednesday with Santyl cream patient is under care of infectious disease for IV antibiotic deep tissue sent for deep culture patient are to the procedure well
[2022-09-16] MEDS ORDERED: FLUTICASONE 50MCG/SPRAY NASAL 16GM EA NOSTRIL PRN (20:18)
--- NOTE | 2022-09-16 21:21 | P.CONS ---
History of Present Illness - Reason for Consult Consult date: 09/16/22 Left foot cellulitis/wound Requesting physician: Gino Malcolm - Chief Complaint Increasing shortness of breath and left foot wound x days - History of Present Illness Patient is a 67-year-old male with with no significant past medical history as the patient not seen a physician in a very long time, patient is presenting to the hospital for evaluation of increasing shortness of breath that has been getting worse over the last 1 week patient has been complaining of orthopnea but no PND patient denies having any chest pain also complaining of increasing swelling to bilateral lower extremity the patient also have a wound on the dorsal aspect of his left foot apparently started as a bruise or ruptured blister. Denies any history of any trauma subsequently get worse, more darker and regular but the patient denies having any pain to that area and did have minimal drainage from it denies any high-grade fever on presentation to the hospital the patient was afebrile and no fever has been recorded subsequently patient did have a normal white count kidney function was normal influenza RSV and COVID testing was negative patient did have x-ray of the foot correlate for soft tissue cellulitis patient did have a CT angiogram of the chest no evidence of PE he also have a CT of abdominal pelvis small bowel enteritis compressed atelectasis mild ascites and nonobstructive left renal calculus patient was started on vancomycin infectious disease was consulted for further management of nephrostomy wound and cellulitis Review of Systems Positive point has been mentioned in the HPI rest of the systems are negative Past Medical History Past Medical History: No Reported History Additional Past Medical History / Comment(s): states it has been decades since he saw a physician History of Any Multi-Drug Resistant Organisms: None Reported Past Surgical History: No Surgical Hx Reported Past Anesthesia/Blood Transfusion Reactions: No Reported Reaction Past Psychological History: No Psychological Hx Reported Smoking Status: Current every day smoker Past Alcohol Use History: None Reported Past Drug Use History: Marijuana Additional Drug Use History / Comment(s): pt is a daily marijuana smoker Medications and Allergies Home Medications Medication Instructions Recorded Confirmed Type Acetaminophen-Codeine 300-30mg 1 each PO Q6HR PRN #12 tab 09/23/22 Rx [Tylenol w/codeine #3] Aspirin 81 mg PO DAILY #30 tab 09/23/22 Rx Atorvastatin [Lipitor] 20 mg PO HS #30 tab 09/23/22 Rx Collagenase [Santyl Ointment] 1 applic TOPICAL DAILY each 09/23/22 Rx Dapagliflozin Propanediol [Farxiga] 10 mg PO DAILY #30 tab 09/23/22 Rx Famotidine [Pepcid] 20 mg PO Q12HR 15 Days #30 tab 09/23/22 Rx Fluticasone Nasal [place] [Flonase 2 spray EA NOSTRIL DAILY PRN ml 09/23/22 Rx Nasal [place]] Metoprolol Tartrate [Lopressor] 50 mg PO BID #60 tab 09/23/22 Rx Spironolactone [Aldactone] 25 mg PO DAILY #30 tab 09/23/22 Rx Vancomycin 1,750 mg IVPB Q12H 14 Days each 09/23/22 Rx cefTRIAXone [Rocephin] 2 gm IVPB Q24HR 14 Days each 09/23/22 Rx metFORMIN HCL [Glucophage] 500 mg PO BID-W/MEALS #60 tab 09/23/22 Rx metroNIDAZOLE [Flagyl] 500 mg PO TID 14 Days #42 tab 09/23/22 Rx Allergies Allergy/AdvReac Type Severity Reaction Status Date / Time No Known Allergies Allergy Verified 09/15/22 10:54 Physical Exam Vitals: Vital Signs Temp Pulse Pulse Resp BP BP Pulse Ox 09/16/22 11:02 73 18 104/65 97 09/16/22 09:02 98 09/16/22 08:10 97.5 F L 84 17 118/79 98 09/16/22 04:00 97.9 F 78 16 98/61 98 09/16/22 02:00 78 18 09/16/22 00:00 97.9 F 78 18 97/61 96 09/15/22 20:00 97.8 F 86 20 112/81 98 09/15/22 17:41 98.7 F 80 20 118/75 99 09/15/22 15:49 98 18 112/78 99 09/15/22 12:44 88 18 116/82 98 Intake and Output 09/15/22 09/16/22 09/16/22 22:59 06:59 14:59 Output Total 1675 Balance -1675 Output: Urine 1675 Other: Voiding Method Urinal Urinal Urinal Weight 99.79 kg 113.7 kg GENERAL DESCRIPTION: An elderly male lying in bed, no distress. No tachypnea or accessory muscle of respiration use. HEENT: Shows Pallor , no scleral icterus. Oral mucous membrane is dry. NECK: Trachea central, no thyromegaly. LUNGS: Unlabored breathing. Decreased breath sound the bases HEART: S1, S2, regular rate and rhythm. No loud murmur ABDOMEN: Soft, no tenderness , guarding or rigidity, no organomegaly EXTREMITIES: Left foot dorsum did have a necrotic wound with some surrounding redness SKIN: No rash, no masses palpable. NEUROLOGICAL: The patient is awake, alert, oriented x3, mood and affect normal. Results CBC & Chem 7: 09/21/22 08:29 09/23/22 08:25 Labs: Abnormal Lab Results - Last 24 Hours (Table) 09/15/22 09/16/22 Range/Units 11:45 08:28 BUN 21 H 21 H (9-20) mg/dL Glucose 219 H 166 H (74-99) mg/dL Total Protein 6.2 L (6.3-8.2) g/dL Microbiology - Last 24 Hours (Table) 09/15/22 11:47 Gram Stain - Preliminary Foot - Left Wound Culture - Preliminary 09/15/22 11:47 Anaerobic Culture - Preliminary Foot - Left Assessment and Plan (1) Cellulitis Status: Acute Code(s): L03.90 - CELLULITIS, UNSPECIFIED SNOMED Code(s): 443550612 (2) Wound of left foot Status: Acute Code(s): S91.302A - UNSPECIFIED OPEN WOUND, LEFT FOOT, INITIAL ENCOUNTER SNOMED Code(s): 852904992 Plan: 1patient with a left lower extremity wound possibly started as a blister as the patient did have evidence of significant swelling to bilateral lower extremity and fluid overload and is being worked up for cardiac etiology under care of cardiology patient did have a necrotic base and will benefit from surgical debridement and deep culture for which vascular surgery will be consulted 2-patient to continue with vancomycin while watching his kidney function closely 3-local wound care was switched over to Santyl followed by moist dressing change daily We will follow on clinical condition and cultures to further adjust medication if needed Thank you for this consultation we will follow the patient along with you Time with Patient: Greater than 30
--- NOTE | 2022-09-16 23:12 | P.PN ---
Subjective Progress Note Date: 09/16/22 Patient is a 67-year-old male without significant past medical history, currently everyday smoker and daily marijuana use presents to ER with complaints of worsening shortness of breath, exertional dyspnea during the last 2 days. Symptoms have been present for the past 2 weeks patient also felt very weak. He has been having lower extremity worsening swelling. Was also having increased abdominal girth. Patient was using 3 pillows at home but still is becoming short of breath. Denies any complaints of chest pain. No nausea vomiting abdominal pain or diarrhea. Denies recent illnesses. No prior history of coronary artery disease.. Patient was having severe leg swelling and does have a wound over the dorsum of the left foot. No prior history of diabetes. Denies any fever or chills. Chest x-ray showed right lower lobe infiltrate and pleural effusion noted. Correlate for pneumonia. Foot x-ray showed correlate for soft tissue cellulitis EKG showed sinus rhythm. CTA chest showed no evidence for PE. Lungs are clear and free of infiltrate. No pulmonary nodules or masses detected. Moderate bilateral pleural effusions noted right greater than left with bilateral compressive atelectasis. CT of the abdomen pelvis. Correlate for small bowel enteritis. Mild ascites throughout the abdomen. Nonobstructing renal calculus. Laboratory data showed WBC 7.7 hemoglobin 14.9 and platelets 205 D-dimer 0.53 Sodium 138 potassium 4.2 chloride 102 bicarb is 30 BUN 21 creatinine 0.8 and blood sugar is 219 Calcium 8.1 Loramyc not elevated proBNP 88.0 Influenza A, B and COVID-19 PCR and RSV not detected. 09/16/2022 Patient is currently lying in bed. Awake alert and oriented x3. Slightly better. Left foot wound status post debridement by vascular surgery and wound culture was sent. Patient is being continued on vancomycin. Otherwise patient is on Lasix 40 mg every 12. Cardiology is on board. 2D echocardiogram showed LV systolic function 35% with reduced excursion of the aortic valve leaflets. Calcific aortic valve with peak gradient of greater than 80 mmHg and mean gradient greater than 50 mmHg along with moderate aortic regurgitation in the setting of severely reduced LV function. Severe aortic stenosis. Laboratory data showed sodium 141 potassium 3.8 chloride 102 bicarb is 30 BUN 21 creatinine 0.91 blood sugar is 166 and A1c 9.1 calcium 9.0 LDL 90.5 and TSH 2.6 within normal limits Current medications reviewed. Objective - Vital Signs Vital signs: Vital Signs Temp 97.5 F L 09/16/22 08:10 Pulse 78 09/16/22 16:20 Resp 17 09/16/22 16:20 BP 95/61 09/16/22 16:20 Pulse Ox 97 09/16/22 16:20 FiO2 Intake & Output 09/16/22 09/16/22 09/17/22 06:59 18:59 06:59 Intake Total 236 Output Total 1675 200 Balance -1675 36 Weight 113.7 kg 113.7 kg Intake: Oral 236 Output: Urine 1675 200 Other: Voiding Method Urinal Urinal # Bowel Movements 1 - Exam PHYSICAL EXAMINATION: Patient is lying in the bed. No distress... Awake alert and oriented.. HEENT: Normocephalic. Neck is supple. Pupils reactive. Nostrils clear. Oral cavity is moist. Neck reveals no JVD, carotid bruits, or thyromegaly. CHEST EXAMINATION: Trachea is central. Symmetrical expansion. Bibasilar diminished sounds and no wheezing. Nonlabored breathing.. CARDIAC: Normal S1, S2 with no gallops. No murmurs ABDOMEN: Soft. Bowel sounds present. Nontender. No organomegaly. No abdominal bruits. Extremities: Bilateral lower extremity with 3+ edema. No clubbing or cyanosis. Left foot dorsal wound is packed at this time. Neurologically awake, alert, oriented x3 with well-coordinated movements. No focal deficits noted Skin: No rash or skin lesions. Psychiatric: Coperative. Nonsuicidal, Musculoskeletal: No joint swelling or deformity. Normal range of motion. - Labs CBC & Chem 7: 09/16/22 08:28 09/16/22 08:28 Labs: Abnormal Lab Results - Last 24 Hours (Table) 09/16/22 09/16/22 Range/Units 08:28 08:28 BUN 21 H (9-20) mg/dL Glucose 166 H (74-99) mg/dL Hemoglobin A1c 9.1 H (0.0-6.0) % Microbiology - Last 24 Hours (Table) 09/15/22 11:47 Gram Stain - Final Foot - Left Wound Culture - Final 09/15/22 11:05 Blood Culture - Preliminary Blood No Growth after 24 hours 09/15/22 10:50 Blood Culture - Preliminary Blood No Growth after 24 hours 09/15/22 11:47 Anaerobic Culture - Preliminary Foot - Left Assessment and Plan Assessment: Acute CHF with severely reduced ejection fraction 35%. New onset. Acute hypoxic respiratory failure secondary to above Bilateral pleural effusion and mild ascites likely due to CHF. Left diabetic foot wound on the dorsal surface with surrounding cellulitis Diabetes type 2 new diagnosis A1c 9.1 Morbid obesity with BMI 40.5 Ongoing nicotine addiction and marijuana use DVT prophylaxis with heparin subcu Plan: Patient will be continued on telemetry monitoring. Continue with Lasix 40 mg every 12 hourly and monitor renal function closely. Patient was started on Coreg. Patient will be continued on vancomycin and infectious disease service is following.. Patient is status post wound debridement by vascular surgery today. Follow-up cultures. Continue with insulin sliding scale. Continue with wound care. Prognosis guarded at this time. Time with Patient: Greater than 30
[2022-09-17] MEDS: VANCOMYCIN 1,500 MG in SODIUM CHLORIDE 0.9% 500 ML 500 ML IVPB SCH ×2 (06:11→17:03)
[2022-09-17] MEDS: carvediloL 3.125 MG TAB PO SCH (06:11)
[2022-09-17 06:22] LABS: Glucose,Whole Blood 127 mg/dL (70-110)
[2022-09-17] MEDS: HEPARIN SODIUM,PORCINE/PF 5,000 UNIT/0.5 ML SYRINGE SQ SCH ×2 (08:37→15:59)
[2022-09-17] MEDS: ASPIRIN 81 MG PO SCH (08:37)
[2022-09-17] MEDS: COLLAGENASE 250 UNIT/GM OINTMENT 30 GM TUBE TOPICAL SCH (08:37)
[2022-09-17] MEDS: FUROSEMIDE 10 MG/ML 4 ML VIAL IV SCH ×3 (08:37→15:59)
[2022-09-17] MEDS: METOPROLOL TARTRATE 50 MG TAB PO SCH ×2 (11:16→20:23)
--- NOTE | 2022-09-17 11:40 | P.CNPUL ---
History of Present Illness Consult date: 09/17/22 Requesting physician: Micah Pete Reason for consult: dyspnea, abnormal CXR/CT Chief complaint: Shortness of breath, infected left foot History of present illness: This is a very pleasant 67-year-old male patient with no past significant medical history. He does not have a PCP. On no home prescribed medications. Over the past 2 weeks she's been having increasing shortness of breath and dyspnea on exertion. He's been having some dizzy spells as well. He also has been having issues with his left foot appearing infected. He presented here to the emergency room on 09/15/2022 for the same. Chest x-ray reveals a right lower lobe infiltrate/pleural effusion. X-ray of the left foot revealed possible soft tissue cellulitis. CT angiogram ruled out pulmonary embolism. Lungs were clear of infiltrate. No pulmonary nodules or masses detected. There is a moderate bilateral pleural effusions noted right greater than left. Basilar compressive atelectasis. Computed tomography scan of the abdomen and pelvis revealed possible small bowel enteritis. Moderate bilateral pleural effu sions with basilar compressive atelectasis. Mild ascites throughout the abdomen. Nonobstructing left renal calculus. Echocardiogram revealed reduced left ventricular systolic function with ejection fraction of 35%. Calcific aortic valve with peak gradient of greater than 80 mmHg and mean gradient of greater than 50 mmHg along with moderate aortic regurgitation. Severe aortic stenosis. He did undergo debridement of the wound of the left foot. He is seen today in consultation on the selective care unit. Currently sitting up in a chair at the bedside. Awake and alert in no acute distress. He is maintaining O2 saturations in the 90s on 2 L/m per nasal cannula. He denies any cigarette smoking. He admits to occasional marijuana use. Not on home oxygen. Not on home inhalers. White count 6.8. Hemoglobin 13.6. Platelets 181. Sodium 141. Potassium 3.8. Bicarb 30. BUN 21. Creatinine 0.91. Glucose 215. Influenza screen negative. RSV screen negative. COVID-19 screen negative. ProBNP 8850. Troponin negative 1. AST 17. ALT 18. Currently he denies any worsening shortness of breath, cough or congestion. He is dyspneic with conversation. Dyspneic with exertion. No hemoptysis. Blood cultures are revealing no growth. Left foot cultures pending. He's been initiated on vancomycin per ID services. He is initiated on IV diuretics. Heparin for DVT prophylaxis. Review of Systems REVIEW OF SYSTEMS: CONSTITUTIONAL: Denies any recent significant weight loss or weight gain. EYES: Denies change in vision. EARS, NOSE, MOUTH, THROAT: Denies headaches, denies sore throat. CARDIOVASCULAR: Denies chest pain, palpitations or syncopal episodes. RESPIRATORY: Positive for shortness of breath, no cough, congestion or hemoptysis. GASTROINTESTINAL: Denies change in appetite, denies abdominal pain GENITOURINARY: Denies hematuria, denies infections. MUSKULOSKELETAL: Denies pain, denies swelling. INTEGUMENTARY: Positive for blistering and redness of the left lower extremity. NEUROLOGICAL: Denies recent memory loss, no recent seizure activity. PSYCHIATRIC: Denies anxiety, denies depression. HEMATOLOGIC/LYMPHATIC: Denies anemia, denies enlarged lymph nodes. Review of system Past Medical History Past Medical History: No Reported History Additional Past Medical History / Comment(s): states it has been decades since he saw a physician History of Any Multi-Drug Resistant Organisms: None Reported Past Surgical History: No Surgical Hx Reported Past Anesthesia/Blood Transfusion Reactions: No Reported Reaction Past Psychological History: No Psychological Hx Reported Smoking Status: Current every day smoker Past Alcohol Use History: None Reported Past Drug Use History: Marijuana Additional Drug Use History / Comment(s): pt is a daily marijuana smoker Medications and Allergies Home Medications Medication Instructions Recorded Confirmed Type No Known Home Medications 09/15/22 09/15/22 History Allergies Allergy/AdvReac Type Severity Reaction Status Date / Time No Known Allergies Allergy Verified 09/15/22 10:54 Physical Exam Vitals: Vital Signs Temp Pulse Pulse Resp BP Pulse Ox 09/17/22 09:18 74 18 09/17/22 06:50 97.8 F 74 16 102/59 98 09/17/22 04:00 98.3 F 77 16 103/59 97 09/17/22 02:00 77 20 09/17/22 00:00 77 20 93/58 97 09/16/22 20:00 97.8 F 77 20 106/65 99 09/16/22 16:20 78 17 95/61 97 Intake and Output 09/16/22 09/17/22 09/17/22 22:59 06:59 14:59 Intake Total 118 360 Balance 118 360 Intake: Oral 118 360 Other: Voiding Method Urinal Urinal Toilet # Voids 2 4 GENERAL EXAM: Alert, pleasant 67-year-old male patient, on 2 L nasal cannula, up in a chair, fairly comfortable in no apparent distress. HEAD: Normocephalic. EYES: Normal reaction of pupils, equal size. NOSE: Clear with pink turbinates. THROAT: No erythema or exudates. NECK: No masses, no JVD. CHEST: No chest wall deformity. LUNGS: Equal air entry with crackles in the bilateral bases right greater than left. CVS: S1 and S2 normal with an audible murmur, regular rhythm. ABDOMEN: No hepatosplenomegaly, normal bowel sounds, no guarding or rigidity. SPINE: No scoliosis or deformity SKIN: Ulceration, subsequent debridement of the left lower extremity CENTRAL NERVOUS SYSTEM: No focal deficits, tone is normal in all 4 extremities. EXTREMITIES: Redness and ulceration of the right lower extremity. There is no peripheral edema. No clubbing, no cyanosis. Peripheral pulses are intact. Results - Laboratory Findings CBC and BMP: 09/16/22 08:28 09/16/22 08:28 PT/INR, D-dimer PT 11.7 sec (9.0-12.0) 09/15/22 11:07 INR 1.1 (<1.2) 09/15/22 11:07 D-Dimer 0.53 mg/L FEU (<0.60) 09/15/22 11:07 Abnormal lab findings: Abnormal Labs 09/15/22 09/16/22 09/16/22 11:45 08:28 08:28 BUN 21 H 21 H Glucose 219 H 166 H POC Glucose (mg/dL) Hemoglobin A1c 9.1 H Total Protein 6.2 L 09/17/22 06:20 BUN Glucose POC Glucose (mg/dL) 127 H Hemoglobin A1c Total Protein - Diagnostic Findings Chest x-ray: image reviewed CT scan - chest: image reviewed Assessment and Plan Assessment: Acute hypoxemic respiratory failure secondary to bilateral pleural effusions right greater than left suspect secondary to severe aortic stenosis Severe aortic stenosis Acute systolic congestive heart failure with ejection fraction of 35-40% Left lower extremity/foot cellulitis, cultures pending, initiated on vancomycin History of marijuana use No primary care provider, no healthcare maintenance follow-up Plan: The patient was seen and evaluated Chest x-ray, CAT scans, labs and medications reviewed Continue IV diuretics Monitor intake and output Titrate the FiO2 as tolerated Continue antibiotics per ID services We will continue to follow and make further recommendations based on his clinical status I have personally seen and examined the patient, performed the documentation and the assessment and plan as written. Number of minutes spent on the visit: 20.
--- NOTE | 2022-09-17 11:41 | XR ---
EXAMINATION TYPE: XR chest 2V DATE OF EXAM: 09/17/2022 COMPARISON: 09/15/2022 HISTORY: Shortness of breath TECHNIQUE: Frontal and lateral views of the chest are obtained. FINDINGS: Scattered senescent parenchymal changes noted. Hyperinflation compatible with COPD. Pulmonary venous congestion with cardiomegaly scattered infiltrates and pleural effusions. Correlate for congestive failure. Mediastinal structures are stable and grossly unremarkable. No evidence for hilar prominence. Degenerative changes dorsal spine. IMPRESSION: 1. Pulmonary venous congestion with cardiomegaly scattered infiltrates and pleural effusions. Correla te for congestive failure.
[2022-09-17 12:06] LABS: Glucose,Whole Blood 119 mg/dL (70-110)
--- NOTE | 2022-09-17 14:37 | P.PN ---
Subjective Progress Note Date: 09/17/22 Principal diagnosis: Left foot wound and cellulitis Patient is a 67-year-old male who has not seen a physician in many years presented to hospital with multiple symptoms including increasing shortness of breath bilateral worsening swelling and did have a nonhealing wound on the dorsum aspect of his left foot patient has been evaluated by vascular surgery and did have a bedside debridement on 09/16/2022 and cultures On today's evaluation and that is 09/17/2022, the patient denies having any fever and chills, the patient is breathing slightly comfortably patient denies having any chest pain no cough and no abdominal pain denies any worsening pain to the left foot has been complaining of some bleeding from the area and no diarrhea reported Objective - Vital Signs Vital signs: Vital Signs Temp 96.8 F L 09/17/22 11:45 Pulse 74 09/17/22 11:45 Resp 16 09/17/22 11:45 BP 103/69 09/17/22 11:45 Pulse Ox 98 09/17/22 11:45 FiO2 Intake & Output 09/16/22 09/17/22 09/17/22 18:59 06:59 18:59 Intake Total 236 360 Output Total 200 Balance 36 360 Weight 113.7 kg Intake: Oral 236 360 Output: Urine 200 Other: Voiding Method Urinal Urinal Toilet # Voids 4 # Bowel Movements 1 - Exam GENERAL DESCRIPTION: An elderly male up in the chair in no distress RESPIRATORY SYSTEM: Unlabored breathing , decreased breath sounds at bases HEART: S1 S2 regular rate and rhythm , ABDOMEN: Soft , no tenderness EXTREMITIES: Left foot is currently dressed no drainage of the dressing - Labs CBC & Chem 7: 09/16/22 08:28 09/16/22 08:28 Labs: Abnormal Lab Results - Last 24 Hours (Table) 09/16/22 09/17/22 09/17/22 Range/Units 08:28 06:20 11:57 POC Glucose (mg/dL) 127 H 119 H (70-110) mg/dL Hemoglobin A1c 9.1 H (0.0-6.0) % Microbiology - Last 24 Hours (Table) 09/15/22 11:05 Blood Culture - Preliminary Blood No Growth after 48 hours 09/15/22 10:50 Blood Culture - Preliminary Blood No Growth after 48 hours 09/15/22 11:47 Anaerobic Culture - Final Foot - Left 09/16/22 17:00 Tissue Culture - Preliminary Foot - Left 09/16/22 17:00 Anaerobic Culture - Preliminary Foot - Left 09/15/22 11:47 Gram Stain - Final Foot - Left Wound Culture - Final Assessment and Plan (1) Wound of left foot Current Visit: Yes Status: Acute Code(s): S91.302A - UNSPECIFIED OPEN WOUND, LEFT FOOT, INITIAL ENCOUNTER SNOMED Code(s): 298599029 (2) Cellulitis Current Visit: Yes Status: Acute Code(s): L03.90 - CELLULITIS, UNSPECIFIED SNOMED Code(s): 391986921 Plan: 1patient with a left lower extremity wound possibly started as a blister as the patient did have evidence of significant swelling to bilateral lower extremity and fluid overload and is being worked up for cardiac etiology under care of cardiology patient did have a necrotic base 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
--- NOTE | 2022-09-17 16:20 | PN ---
PROGRESS NOTE SUBJECTIVE: This gentleman is admitted to the hospital with shortness of breath and left foot wound. Clinical evaluation suggested aortic stenotic murmur. Echo revealed ejection fraction of 35% without pulmonary hypertension with severe aortic stenosis. The patient uses marijuana on a regular basis, used it until he was here in the hospital. He also smoked in the past. He has not seen a physician for quite some time. He has cellulitis of the left foot. He is being seen by Dr. Worley as well. At the time of my evaluation this morning, he feels better. His breathing has improved. I am going to increase the Lasix from 40 q.12 to 40 q.8 hours and change the beta-william from Coreg to Lopressor. Hopefully, once he improves, he will need a transesophageal echo and right and left heart catheterization to assess the status of the coronaries and also to assess the status of aortic valve for possible aortic valve replacement. I discussed my thoughts in detail with the patient. I will also check with Dr. Worley to make sure there is no active infection, and for now, we will pursue medical therapy. I will also request Pulmonary evaluation as well. We will increase Lasix to 40 mg q.8 hours, Lopressor to 50 mg b.i.d. We will stop Coreg and seek Pulmonary evaluation and obtain a chest x-ray. OBJECTIVE: VITAL SIGNS: Stable. NECK: JVD is 1 cm. No carotid bruit. HEART: S1 and S2 with ejection systolic murmur. LUNGS: Reveal improved air entry, scattered rhonchi. ABDOMEN: Soft. EXTREMITIES: Lower extremities reveal improved edema. Left foot wound is noted and wrapped. PLAN: We will await further input from Dr. Worley also. I explained to the patient his overall prognosis is guarded, and we will need cardiac catheterization and transesophageal echo hopefully next week either as an inpatient or as an outpatient. MMODL / IJN: [id number] /
[2022-09-17 16:41] LABS: Glucose,Whole Blood 155 mg/dL (70-110)
[2022-09-17 20:07] LABS: Glucose,Whole Blood 195 mg/dL (70-110)
[2022-09-18] MEDS: HEPARIN SODIUM,PORCINE/PF 5,000 UNIT/0.5 ML SYRINGE SQ SCH ×4 (00:05→23:35)
[2022-09-18] MEDS: FUROSEMIDE 10 MG/ML 4 ML VIAL IV SCH ×4 (00:05→23:36)
[2022-09-18] MEDS ORDERED: VANCOMYCIN TROUGH DUE 1 EACH MISC MISCELLANE ONE (05:00)
[2022-09-18 06:06] LABS: Basophils % (A) 0 %; Eosinophils # (A) 0.2 k/uL (0-0.7); Eosinophils % (A) 3 %; HCT 39.3 % (39.0-53.0); HGB 12.7 gm/dL (13.0-17.5); Lymphocytes # (A) 1.3 k/uL (1.0-4.8); Lymphocytes % (A) 22 %; MCH 27.7 pg (25.0-35.0); MCHC 32.4 g/dL (31.0-37.0); MCV 85.4 fL (80.0-100.0); Mean Platelet Volume 8.7; Monocytes # (A) 0.4 k/uL (0-1.0); Monocytes % (A) 7 %; Neutrophils # (A) 3.8 k/uL (1.3-7.7); Neutrophils % (A) 67 %; Platelet Count 154 k/uL (150-450); RDW 13.3 % (11.5-15.5); WBC 5.8 k/uL (3.8-10.6)
[2022-09-18 06:13] LABS: Glucose,Whole Blood 138 mg/dL (70-110)
[2022-09-18 06:18] LABS: Calcium 8.6 mg/dL (8.4-10.2); Potassium 3.7 mmol/L (3.5-5.1)
[2022-09-18] MEDS: VANCOMYCIN 1,500 MG in SODIUM CHLORIDE 0.9% 500 ML 500 ML IVPB SCH (06:54)
[2022-09-18] MEDS: COLLAGENASE 250 UNIT/GM OINTMENT 30 GM TUBE TOPICAL SCH (08:08)
[2022-09-18] MEDS: ASPIRIN 81 MG PO SCH (08:08)
[2022-09-18] MEDS: METOPROLOL TARTRATE 50 MG TAB PO SCH ×2 (08:08→20:58)
--- NOTE | 2022-09-18 08:56 | PN ---
PROGRESS NOTE This is a 67-year-old gentleman. The patient has a wound on the dorsum aspect of the foot. We did excision and debridement of the wound. Today, we have changed the dressing. Some drainage tissue was noted. The patient will be continued on Santyl cream. The patient is on IV antibiotics under the care of Infectious Disease. Multiple anaerobic organism seen. The patient may be scheduled for MICHELLE and heart catheterization on Wednesday. We have to change the dressing every 48 hours with Santyl cream. MMODL / IJN: [id number] /
--- NOTE | 2022-09-18 11:14 | P.PN ---
Subjective Progress Note Date: 09/17/22 Patient is a 67-year-old male without significant past medical history, currently everyday smoker and daily marijuana use presents to ER with complaints of worsening shortness of breath, exertional dyspnea during the last 2 days. Symptoms have been present for the past 2 weeks patient also felt very weak. He has been having lower extremity worsening swelling. Was also having increased abdominal girth. Patient was using 3 pillows at home but still is becoming short of breath. Denies any complaints of chest pain. No nausea vomiting abdominal pain or diarrhea. Denies recent illnesses. No prior history of coronary artery disease.. Patient was having severe leg swelling and does have a wound over the dorsum of the left foot. No prior history of diabetes. Denies any fever or chills. Chest x-ray showed right lower lobe infiltrate and pleural effusion noted. Correlate for pneumonia. Foot x-ray showed correlate for soft tissue cellulitis EKG showed sinus rhythm. CTA chest showed no evidence for PE. Lungs are clear and free of infiltrate. No pulmonary nodules or masses detected. Moderate bilateral pleural effusions noted right greater than left with bilateral compressive atelectasis. CT of the abdomen pelvis. Correlate for small bowel enteritis. Mild ascites throughout the abdomen. Nonobstructing renal calculus. Laboratory data showed WBC 7.7 hemoglobin 14.9 and platelets 205 D-dimer 0.53 Sodium 138 potassium 4.2 chloride 102 bicarb is 30 BUN 21 creatinine 0.8 and blood sugar is 219 Calcium 8.1 Loramyc not elevated proBNP 88.0 Influenza A, B and COVID-19 PCR and RSV not detected. 09/16/2022 Patient is currently lying in bed. Awake alert and oriented x3. Slightly better. Left foot wound status post debridement by vascular surgery and wound culture was sent. Patient is being continued on vancomycin. Otherwise patient is on Lasix 40 mg every 12. Cardiology is on board. 2D echocardiogram showed LV systolic function 35% with reduced excursion of the aortic valve leaflets. Calcific aortic valve with peak gradient of greater than 80 mmHg and mean gradient greater than 50 mmHg along with moderate aortic regurgitation in the setting of severely reduced LV function. Severe aortic stenosis. Laboratory data showed sodium 141 potassium 3.8 chloride 102 bicarb is 30 BUN 21 creatinine 0.91 blood sugar is 166 and A1c 9.1 calcium 9.0 LDL 90.5 and TSH 2.6 within normal limits 09/17/2022 Patient is currently resting in bed. Awake alert and oriented 3. Still having bilateral lower extremity swelling. Breathing status is improving. Continue with Lasix IV 40 mg twice daily. Pulmonary was consulted due to bilateral pleural effusion. Otherwise patient is on antibiotics for diabetic foot ulcer. Chest pain. No nausea vomiting abdominal pain or diarrhea. Patient feels better. No fever no chills. Current medications reviewed. Objective - Vital Signs Vital signs: Vital Signs Temp 96.8 F L 09/17/22 11:45 Pulse 70 09/17/22 15:55 Resp 17 09/17/22 15:55 BP 105/68 09/17/22 15:55 Pulse Ox 98 09/17/22 15:55 FiO2 Intake & Output 09/17/22 09/17/22 09/18/22 06:59 18:59 06:59 Intake Total 1740 Output Total 600 Balance 1140 Intake: Oral 1740 Output: Urine 600 Other: Voiding Method Urinal Toilet # Voids 4 4 # Bowel Movements 2 - Exam PHYSICAL EXAMINATION: Patient is lying in the bed. No distress... Awake alert and oriented.. HEENT: Normocephalic. Neck is supple. Pupils reactive. Nostrils clear. Oral cavity is moist. Neck reveals no JVD, carotid bruits, or thyromegaly. CHEST EXAMINATION: Trachea is central. Symmetrical expansion. Bibasilar diminished sounds and no wheezing. Nonlabored breathing.. CARDIAC: Normal S1, S2 with no gallops. No murmurs ABDOMEN: Soft. Bowel sounds present. Nontender. No organomegaly. No abdominal bruits. Extremities: Bilateral lower extremity with 3+ edema. No clubbing or cyanosis. Left foot dorsal wound is packed at this time. Neurologically awake, alert, oriented x3 with well-coordinated movements. No focal deficits noted Skin: No rash or skin lesions. Psychiatric: Coperative. Nonsuicidal, Musculoskeletal: No joint swelling or deformity. Normal range of motion. - Labs CBC & Chem 7: 09/18/22 05:37 09/18/22 05:37 Labs: Abnormal Lab Results - Last 24 Hours (Table) 09/17/22 09/17/22 09/17/22 Range/Units 06:20 11:57 16:40 POC Glucose (mg/dL) 127 H 119 H 155 H (70-110) mg/dL Microbiology - Last 24 Hours (Table) 09/15/22 11:05 Blood Culture - Preliminary Blood No Growth after 48 hours 09/15/22 10:50 Blood Culture - Preliminary Blood No Growth after 48 hours 09/15/22 11:47 Anaerobic Culture - Final Foot - Left 09/16/22 17:00 Tissue Culture - Preliminary Foot - Left 09/16/22 17:00 Anaerobic Culture - Preliminary Foot - Left 09/15/22 11:47 Gram Stain - Final Foot - Left Wound Culture - Final Assessment and Plan Assessment: Acute CHF with severely reduced ejection fraction 35%. New onset. Acute hypoxic respiratory failure secondary to above Bilateral pleural effusion and mild ascites likely due to CHF. Left diabetic foot wound on the dorsal surface with surrounding cellulitis Diabetes type 2 new diagnosis A1c 9.1 Morbid obesity with BMI 40.5 Ongoing nicotine addiction and marijuana use DVT prophylaxis with heparin subcu Plan: Patient will be continued on telemetry monitoring. Continue with Lasix 40 mg every 12 hourly and monitor renal function closely. Patient was started on Coreg. Patient will be continued on vancomycin and infectious disease service is following.. Patient is status post wound debridement by vascular surgery today. Final cultures pending. Continue with insulin sliding scale. Patient will need outpatient regimen. Prescription for glucometer was sent. Continue with wound care. Prognosis guarded at this time. Pulmonary, cardiology and ID is on board. Time with Patient: Greater than 30
[2022-09-18 11:39] LABS: Glucose,Whole Blood 147 mg/dL (70-110)
--- NOTE | 2022-09-18 12:26 | P.PN ---
Subjective Progress Note Date: 09/18/22 Principal diagnosis: Shortness of breath. This is a very pleasant 67-year-old male patient with no past significant medical history. He does not have a PCP. On no home prescribed medications. Over the past 2 weeks she's been having increasing shortness of breath and dyspnea on exertion. He's been having some dizzy spells as well. He also has been having issues with his left foot appearing infected. He presented here to the emergency room on 09/15/2022 for the same. Chest x-ray reveals a right lower lobe infiltrate/pleural effusion. X-ray of the left foot revealed p ossible soft tissue cellulitis. CT angiogram ruled out pulmonary embolism. Lungs were clear of infiltrate. No pulmonary nodules or masses detected. There is a moderate bilateral pleural effusions noted right greater than left. Basilar compressive atelectasis. Computed tomography scan of the abdomen and pelvis revealed possible small bowel enteritis. Moderate bilateral pleural effusions with basilar compressive atelectasis. Mild ascites throughout the abdomen. Nonobstructing left renal calculus. Echocardiogram revealed reduced left ventricular systolic function with ejection fraction of 35%. Calcific aortic valve with peak gradient of greater than 80 mmHg and mean gradient of greater than 50 mmHg along with moderate aortic regurgitation. Severe aortic stenosis. He did undergo debridement of the wound of the left foot. He is seen today in consultation on the selective care unit. Currently sitting up in a chair at the bedside. Awake and alert in no acute distress. He is maintaining O2 saturations in the 90s on 2 L/m per nasal cannula. He denies any cigarette smoking. He admits to occasional marijuana use. Not on home oxygen. Not on home inhalers. White count 6.8. Hemoglobin 13.6. Platelets 181. Sodium 141. Potassium 3.8. Bicarb 30. BUN 21. Creatinine 0.91. Glucose 215. Influenza screen negative. RSV screen negative. COVID-19 screen negative. ProBNP 8850. Troponin negative 1. AST 17. ALT 18. Currently he denies any worsening shortness of breath, cough or congestion. He is dyspneic with conversation. Dyspneic with exertion. No hemoptysis. Blood cultures are revealing no growth. Left foot cultures pending. He's been initiated on vancomycin per ID services. He is initiated on IV diuretics. Heparin for DVT prophylaxis. Plan dated 09/18/2022. 67-year-old male seen again in room 359. The patient was seen yesterday in consultation with shortness of breath, CHF. Currently, he is doing better. 2 L of oxygen. He's not receiving any IV fluids. He remains on vancomycin for a left foot infection. White count 5.8, hemoglobin 12.7, hematocrit 39.3, and platelet count normal. Sodium 139, potassium 3.7, chlorides 101, CO2 32, BUN 38, and creatinine 1.04. Objective - Vital Signs Vital signs: Vital Signs Temp 97.2 F L 09/18/22 11:45 Pulse 55 L 09/18/22 11:45 Resp 16 09/18/22 11:45 BP 105/68 09/18/22 11:45 Pulse Ox 98 09/18/22 11:45 FiO2 Intake & Output 09/17/22 09/18/22 09/18/22 18:59 06:59 18:59 Intake Total 1740 Output Total 600 Balance 1140 Weight 111.6 kg Intake: Oral 1740 Output: Urine 600 Other: Voiding Method Toilet Toilet Toilet # Voids 4 2 1 # Bowel Movements 2 - Exam No acute distress, oriented 3. No overt respiratory distress. Currently on 2 L of oxygen by nasal cannula. HEENT examination is grossly unremarkable. Mucous membranes are moist. No oral lesions. Neck supple. Full range of motion. No adenopathy thyromegaly or neck vein distention. Cardiovascular examination reveals regular rhythm rate. S1-S2 normal. No S3 or S4. Soft systolic murmurs noted. Heart sounds are distant. Lungs reveal scattered bilateral and bibasilar crackles. His is a rhonchi. Breath sounds equal. Abdomen soft bowel sounds are heard. No masses or tenderness. Extremities are intact. No cyanosis clubbing or edema. Left foot is wrapped. Skin is without rash or lesion. Neurologic examination is brief but nonfocal. - Labs CBC & Chem 7: 09/18/22 05:37 09/18/22 05:37 Labs: Abnormal Lab Results - Last 24 Hours (Table) 09/17/22 09/17/22 09/18/22 Range/Units 16:40 20:06 05:37 Hgb (13.0-17.5) gm/dL Carbon Dioxide 32 H (22-30) mmol/L BUN 38 H (9-20) mg/dL Glucose 138 H (74-99) mg/dL POC Glucose (mg/dL) 155 H 195 H (70-110) mg/dL 09/18/22 09/18/22 09/18/22 Range/Units 05:37 06:11 11:33 Hgb 12.7 L (13.0-17.5) gm/dL Carbon Dioxide (22-30) mmol/L BUN (9-20) mg/dL Glucose (74-99) mg/dL POC Glucose (mg/dL) 138 H 147 H (70-110) mg/dL Microbiology - Last 24 Hours (Table) 09/16/22 17:00 Gram Stain - Preliminary Foot - Left Tissue Culture - Preliminary 09/15/22 11:05 Blood Culture - Preliminary Blood No Growth after 48 hours 09/15/22 10:50 Blood Culture - Preliminary Blood No Growth after 48 hours 09/15/22 11:47 Anaerobic Culture - Final Foot - Left 09/16/22 17:00 Anaerobic Culture - Preliminary Foot - Left 09/15/22 11:47 Gram Stain - Final Foot - Left Wound Culture - Final Assessment and Plan Assessment: Acute hypoxemic respiratory failure secondary to bilateral pleural effusions right greater than left suspect secondary to severe aortic stenosis. Severe aortic stenosis. Acute systolic congestive heart failure with ejection fraction of 35-40%. Left lower extremity/foot cellulitis, cultures pending, initiated on vancomycin. History of marijuana use. Morbid obesity. No primary care provider, no healthcare maintenance follow-up. Plan: Plan dated 09/18/2022. The patient appears to be relatively comfortable. Apparently the patient is going to be treated for his foot infection, and will see cardiology in follow-up next week. No additional recommendations at this time. The patient is encouraged to find a family doctor, and start seeing a doctor on a regular basis. Up to this point, the patient has really not been seeing any physicians. He was on no medication at home. He is encouraged to stop smoking marijuana. Microbiologic studies are thus far negative. Labs, x-rays, and medications are reviewed. Time with Patient: Less than 30
--- NOTE | 2022-09-18 13:13 | P.PN ---
Subjective Progress Note Date: 09/18/22 History of present illness: This is a 67-year-old male that does not follow with a PCP usually goes to [facility] for medical care. Patient denies history of cardiac disease. Patient is not on any home medications. We have been asked to evaluate the patient for new heart failure. Patient presented to the hospital due to shortness of breath going on for a week and gradually worsening. He denies having any chest pain. Has been sleeping on 3 pillows. No PND. Patient has had increased edema to the lower extremities and cellulitis was diagnosed of the left lower leg. No fever or chills. No cough. EKG sinus rhythm with left ventricle hypertrophy, right bundle branch block Troponin negative 1. ProBNP 8850, CBC within normal limits. BUN 21, creatinine 0.8. Potassium 4.2. Blood sugar 219. Patient denies known history of diabetes Chest x-ray: Right lower lobe infiltrate and pleural effusion correlate for pneumonia. CTA no pulmonary embolism. Moderate bilateral pleural effusion right greater than left. 09/18 Patient is seen today in follow-up. Yesterday, echocardiogram revealed EF of 35% with pulmonary hypertension severe aortic stenosis. It was discussed with the patient that once his breathing status is improved and foot wound is healed, patient will need to undergo MICHELLE and right and left heart catheterization to assess the status of the coronaries and status of aortic valve for possible aortic valve replacement. He has been on IV Lasix 40 mg every 8 hours and metoprolol 50 mg twice daily (off coreg). Patient has been diuresing well and noted weight loss. Heart rate is running in the 60s and 70s in sinus rhythm Patient is also followed by Dr. Worley and Dr. Skinner regarding the left foot wound on antibiotics status post debridement. Repeat blood work reveals WBC 5.8, hemoglobin 12.7, platelet count 154. Sodium 139, potassium 3.7, BUN 38 and creatinine 1. Physical examination: Gen: This is a morbidly obese 67-year-old male. Dressing appears to be comfortable. No acute distress. VS: reviewed HEENT: Head is atraumatic, normocephalic. Pupils equal, round. Sclerae is anicteric. NECK: Supple. No JVD. . LUNGS: Diminished bilaterally. No wheezes or rhonchi. No intercostal retractions. HEART: Regular rate and rhythm. Systolic ejection murmur. ABDOMEN: Soft No tenderness. Obese. EXTREMITIES: 12 plus pedal edema. Linear abrasions to the right lower extremity, dressing in place to the left ankle. NEUROLOGICAL: Patient is awake, alert and oriented x3. Assessment: Bilateral pleural effusions Acute diastolic heart failure Severe aortic stenosis New diagnosis of diabetes, A1c 9.1 Left foot wound status post debridement Plan: Continue patient on IV Lasix 40 mg every 12 hours for another 24 hours. Plan to transition patient to oral Lasix on the weekend and possible discharge on Wednesday. Patient to follow-up with Dr. Gray in the office next week for scheduling of MICHELLE and scheduling of right and left heart catheterizations. Continue to monitor I&O, daily weights, electrolytes and renal function Further recommendations to follow based upon clinical course Nurse practitioner note has been reviewed, I agree with documented findings and plan of care. Patient was seen and examined. Objective - Vital Signs Vital signs: Vital Signs Temp 97.8 F 09/18/22 07:43 Pulse 68 09/18/22 08:15 Resp 18 09/18/22 08:15 BP 98/63 09/18/22 07:43 Pulse Ox 99 09/18/22 07:43 FiO2 Intake & Output 09/17/22 09/18/22 09/18/22 18:59 06:59 18:59 Intake Total 1740 Output Total 600 Balance 1140 Weight 111.6 kg Intake: Oral 1740 Output: Urine 600 Other: Voiding Method Toilet Toilet Toilet # Voids 4 2 # Bowel Movements 2 - Labs CBC & Chem 7: 09/18/22 05:37 09/18/22 05:37 Labs: Abnormal Lab Results - Last 24 Hours (Table) 09/17/22 09/17/22 09/17/22 Range/Units 11:57 16:40 20:06 Hgb (13.0-17.5) gm/dL Carbon Dioxide (22-30) mmol/L BUN (9-20) mg/dL Glucose (74-99) mg/dL POC Glucose (mg/dL) 119 H 155 H 195 H (70-110) mg/dL 09/18/22 09/18/22 09/18/22 Range/Units 05:37 05:37 06:11 Hgb 12.7 L (13.0-17.5) gm/dL Carbon Dioxide 32 H (22-30) mmol/L BUN 38 H (9-20) mg/dL Glucose 138 H (74-99) mg/dL POC Glucose (mg/dL) 138 H (70-110) mg/dL Microbiology - Last 24 Hours (Table) 09/15/22 11:05 Blood Culture - Preliminary Blood No Growth after 48 hours 09/15/22 10:50 Blood Culture - Preliminary Blood No Growth after 48 hours 09/15/22 11:47 Anaerobic Culture - Final Foot - Left 09/16/22 17:00 Tissue Culture - Preliminary Foot - Left 09/16/22 17:00 Anaerobic Culture - Preliminary Foot - Left 09/15/22 11:47 Gram Stain - Final Foot - Left Wound Culture - Final
--- NOTE | 2022-09-18 13:14 | P.PN ---
Subjective Progress Note Date: 09/18/22 Principal diagnosis: Left foot wound and cellulitis Patient is a 67-year-old male who has not seen a physician in many years presented to hospital with multiple symptoms including increasing shortness of breath bilateral worsening swelling and did have a nonhealing wound on the dorsum aspect of his left foot patient has been evaluated by vascular surgery and did have a bedside debridement on 09/16/2022 and cultures On today's evaluation and that is 09/18/2022, the patient continues to be afebrile, the patient shortness of breath has improved and is currently on 2 L nasal cannula oxygen, patient denies having any chest pain no cough and no abdominal pain denies any worsening pain to the left foot Objective - Vital Signs Vital signs: Vital Signs Temp 97.2 F L 09/18/22 11:45 Pulse 55 L 09/18/22 11:45 Resp 16 09/18/22 11:45 BP 105/68 09/18/22 11:45 Pulse Ox 98 09/18/22 11:45 FiO2 Intake & Output 09/17/22 09/18/22 09/18/22 18:59 06:59 18:59 Intake Total 1740 Output Total 600 Balance 1140 Weight 111.6 kg Intake: Oral 1740 Output: Urine 600 Other: Voiding Method Toilet Toilet Toilet # Voids 4 2 1 # Bowel Movements 2 - Exam GENERAL DESCRIPTION: An elderly male up in the chair in no distress RESPIRATORY SYSTEM: Unlabored breathing , decreased breath sounds at bases HEART: S1 S2 regular rate and rhythm , ABDOMEN: Soft , no tenderness EXTREMITIES: Left foot is currently dressed no drainage of the dressing - Labs CBC & Chem 7: 09/18/22 05:37 09/18/22 05:37 Labs: Abnormal Lab Results - Last 24 Hours (Table) 09/17/22 09/17/22 09/18/22 Range/Units 16:40 20:06 05:37 Hgb (13.0-17.5) gm/dL Carbon Dioxide 32 H (22-30) mmol/L BUN 38 H (9-20) mg/dL Glucose 138 H (74-99) mg/dL POC Glucose (mg/dL) 155 H 195 H (70-110) mg/dL 09/18/22 09/18/22 09/18/22 Range/Units 05:37 06:11 11:33 Hgb 12.7 L (13.0-17.5) gm/dL Carbon Dioxide (22-30) mmol/L BUN (9-20) mg/dL Glucose (74-99) mg/dL POC Glucose (mg/dL) 138 H 147 H (70-110) mg/dL Microbiology - Last 24 Hours (Table) 09/16/22 17:00 Gram Stain - Preliminary Foot - Left Tissue Culture - Preliminary 09/15/22 11:05 Blood Culture - Preliminary Blood No Growth after 48 hours 09/15/22 10:50 Blood Culture - Preliminary Blood No Growth after 48 hours 09/15/22 11:47 Anaerobic Culture - Final Foot - Left 09/16/22 17:00 Anaerobic Culture - Preliminary Foot - Left 09/15/22 11:47 Gram Stain - Final Foot - Left Wound Culture - Final Assessment and Plan (1) Cellulitis Current Visit: Yes Status: Acute Code(s): L03.90 - CELLULITIS, UNSPECIFIED SNOMED Code(s): 931352644 (2) Wound of left foot Current Visit: Yes Status: Acute Code(s): S91.302A - UNSPECIFIED OPEN WOUND, LEFT FOOT, INITIAL ENCOUNTER SNOMED Code(s): 514419619 Plan: 1patient with a left lower extremity wound possibly started as a blister as the patient did have evidence of significant swelling to bilateral lower extremity and fluid overload and is being worked up for cardiac etiology under care of cardiology patient did have a necrotic base for the patient did have debridement done by vascular surgeon and deep cultures are currently growing gram-negative 2-we will discontinue vancomycin started the patient cefepime awaiting for the cultures to finalize Time with Patient: Less than 30
[2022-09-18 16:36] LABS: Glucose,Whole Blood 185 mg/dL (70-110)
[2022-09-18] MEDS: CEFEPIME 2 GM in SODIUM CHLORIDE 0.9% 100 ML IVPB SCH ×2 (16:37→23:38)
[2022-09-18 20:06] LABS: Glucose,Whole Blood 181 mg/dL (70-110)
--- NOTE | 2022-09-19 01:36 | P.PN ---
Subjective Patient is a 67-year-old male without significant past medical history, currently everyday smoker and daily marijuana use presents to ER with complaints of worsening shortness of breath, exertional dyspnea during the last 2 days. Symptoms have been present for the past 2 weeks patient also felt very weak. He has been having lower extremity worsening swelling. Was also having increased abdominal girth. Patient was using 3 pillows at home but still is becoming short of breath. Denies any complaints of chest pain. No nausea vomiting abdominal pain or diarrhea. Denies recent illnesses. No prior history of coronary artery disease.. Patient was having severe leg swelling and does have a wound over the dorsum of the left foot. No prior history of diabetes. Denies any fever or chills. Chest x-ray showed right lower lobe infiltrate and pleural effusion noted. Correlate for pneumonia. Foot x-ray showed correlate for soft tissue cellulitis EKG showed sinus rhythm. CTA chest showed no evidence for PE. Lungs are clear and free of infiltrate. No pulmonary nodules or masses detected. Moderate bilateral pleural effusions noted right greater than left with bilateral compressive atelectasis. CT of the abdomen pelvis. Correlate for small bowel enteritis. Mild ascites throughout the abdomen. Nonobstructing renal calculus. Laboratory data showed WBC 7.7 hemoglobin 14.9 and platelets 205 D-dimer 0.53 Sodium 138 potassium 4.2 chloride 102 bicarb is 30 BUN 21 creatinine 0.8 and blood sugar is 219 Calcium 8.1 Loramyc not elevated proBNP 88.0 Influenza A, B and COVID-19 PCR and RSV not detected. 09/16/2022 Patient is currently lying in bed. Awake alert and oriented x3. Slightly better. Left foot wound status post debridement by vascular surgery and wound culture was sent. Patient is being continued on vancomycin. Otherwise patient is on Lasix 40 mg every 12. Cardiology is on board. 2D echocardiogram showed LV systolic function 35% with reduced excursion of the aortic valve leaflets. Calcific aortic valve with peak gradient of greater than 80 mmHg and mean gradient greater than 50 mmHg along with moderate aortic regurgitation in the setting of severely reduced LV function. Severe aortic stenosis. Laboratory data showed sodium 141 potassium 3.8 chloride 102 bicarb is 30 BUN 21 creatinine 0.91 blood sugar is 166 and A1c 9.1 calcium 9.0 LDL 90.5 and TSH 2.6 within normal limits 09/17/2022 Patient is currently resting in bed. Awake alert and oriented 3. Still having bilateral lower extremity swelling. Breathing status is improving. Continue with Lasix IV 40 mg twice daily. Pulmonary was consulted due to bilateral pleural effusion. Otherwise patient is on antibiotics for diabetic foot ulcer. Chest pain. No nausea vomiting abdominal pain or diarrhea. Patient feels better. No fever no chills. 09/18/2022 This is a pleasant 67 years old male who does not follow up outpatient presents with left wound and cellulitis. he Is a status post debridement by surgery team His currently been covered with IV cefepime, blood culture is growing gram- negative bacilli. His hemoglobin A1c is elevated 9.1%, patient has diabetes Also patient with severe aortic valve stenosis and evidence of new onset CHF w ith ejection fraction 35-40% Patient currently on IV Lasix 40 mg every 8 hours patient will require aortic valve treatment and cardiology on the case Objective - Vital Signs Vital signs: Vital Signs Temp 97.8 F 09/18/22 07:43 Pulse 68 09/18/22 08:15 Resp 18 09/18/22 08:15 BP 98/63 09/18/22 07:43 Pulse Ox 99 09/18/22 07:43 FiO2 Intake & Output 09/17/22 09/18/22 09/18/22 18:59 06:59 18:59 Intake Total 1740 Output Total 600 Balance 1140 Weight 111.6 kg Intake: Oral 1740 Output: Urine 600 Other: Voiding Method Toilet Toilet Toilet # Voids 4 2 1 # Bowel Movements 2 - Exam GENERAL: The patient is alert and oriented x3, not in any acute distress. Well developed, well nourished. HEENT: Pupils are round and equally reacting to light. EOMI. No scleral icterus. No conjunctival pallor. Normocephalic, atraumatic. No pharyngeal erythema. No thyromegaly. CARDIOVASCULAR: S1 and S2 present. No murmurs, rubs, or gallops. PULMONARY: Chest is clear to auscultation, no wheezing or crackles. ABDOMEN: Soft, nontender, nondistended, normoactive bowel sounds. No palpable organomegaly. MUSCULOSKELETAL: No joint swelling or deformity. -EXTREMITIES: No cyanosis, clubbing, or pedal edema. Right foot wound is healing NEUROLOGICAL: Gross neurological examination did not reveal any focal deficits. SKIN: No rashes. no petechiae. - Labs CBC & Chem 7: 09/18/22 05:37 09/18/22 05:37 Labs: Abnormal Lab Results - Last 24 Hours (Table) 09/17/22 09/17/22 09/17/22 Range/Units 11:57 16:40 20:06 Hgb (13.0-17.5) gm/dL Carbon Dioxide (22-30) mmol/L BUN (9-20) mg/dL Glucose (74-99) mg/dL POC Glucose (mg/dL) 119 H 155 H 195 H (70-110) mg/dL 09/18/22 09/18/22 09/18/22 Range/Units 05:37 05:37 06:11 Hgb 12.7 L (13.0-17.5) gm/dL Carbon Dioxide 32 H (22-30) mmol/L BUN 38 H (9-20) mg/dL Glucose 138 H (74-99) mg/dL POC Glucose (mg/dL) 138 H (70-110) mg/dL Microbiology - Last 24 Hours (Table) 09/16/22 17:00 Gram Stain - Preliminary Foot - Left Tissue Culture - Preliminary 09/15/22 11:05 Blood Culture - Preliminary Blood No Growth after 48 hours 09/15/22 10:50 Blood Culture - Preliminary Blood No Growth after 48 hours 09/15/22 11:47 Anaerobic Culture - Final Foot - Left 09/16/22 17:00 Anaerobic Culture - Preliminary Foot - Left 09/15/22 11:47 Gram Stain - Final Foot - Left Wound Culture - Final Assessment and Plan Assessment: Acute CHF with severely reduced ejection fraction 35%. New onset. Acute hypoxic respiratory failure secondary to above Bilateral pleural effusion and mild ascites likely due to CHF. Left diabetic foot wound on the dorsal surface with surrounding cellulitis Diabetes type 2 new diagnosis A1c 9.1 Morbid obesity with BMI 40.5 Ongoing nicotine addiction and marijuana use Plan: Continue with IV Lasix Antibiotics were adjusted to cefepime Surgical consult is from the case including cardiology, pulmonary Infectious disease and surgical team consult Follow-up with wound culture and sensitivity Patient with new onset diabetes Labs and medication were reviewed.. Continue same treatment. Continue with symptomatic treatment. Resume home medication. Monitor labs and vitals. DVT and GI prophylaxis. Further recommendations as per clinical course of the pa tient DVT prophylaxis: Subcutaneous heparin GI Prophylaxis: Pepcid PT/OT: Pending Prognosis is guarded
[2022-09-19 06:06] LABS: Glucose,Whole Blood 145 mg/dL (70-110)
[2022-09-19] MEDS ORDERED: FAMOTIDINE 20 MG/2 ML VIAL IV SCH (09:00)
[2022-09-19] MEDS: ASPIRIN 81 MG PO SCH (10:14)
[2022-09-19] MEDS: HEPARIN SODIUM,PORCINE/PF 5,000 UNIT/0.5 ML SYRINGE SQ SCH ×2 (10:14→17:08)
[2022-09-19] MEDS: CEFEPIME 2 GM in SODIUM CHLORIDE 0.9% 100 ML IVPB SCH ×2 (10:15→17:07)
[2022-09-19] MEDS: COLLAGENASE 250 UNIT/GM OINTMENT 30 GM TUBE TOPICAL SCH (10:15)
[2022-09-19 10:51] LABS: African American GFR (CKD) >90 (>60 ml/min/1.73 sqM); Anion Gap 6 mmol/L; Blood Urea Nitrogen 41 mg/dL (9-20); Calcium 8.8 mg/dL (8.4-10.2); Carbon Dioxide 32 mmol/L (22-30); Chloride 101 mmol/L (98-107); Glucose 166 mg/dL (74-99); Non-African American GFR(CKD) 85 (>60 ml/min/1.73 sqM); Potassium 3.6 mmol/L (3.5-5.1); Sodium 139 mmol/L (137-145)
--- NOTE | 2022-09-19 11:26 | P.PN ---
Subjective Progress Note Date: 09/19/22 Principal diagnosis: Shortness of breath. This is a very pleasant 67-year-old male patient with no past significant medical history. He does not have a PCP. On no home prescribed medications. Over the past 2 weeks she's been having increasing shortness of breath and dyspnea on exertion. He's been having some dizzy spells as well. He also has been having issues with his left foot appearing infected. He presented here to the emergency room on 09/15/2022 for the same. Chest x-ray reveals a right lower lobe infiltrate/pleural effusion. X-ray of the left foot revealed p ossible soft tissue cellulitis. CT angiogram ruled out pulmonary embolism. Lungs were clear of infiltrate. No pulmonary nodules or masses detected. There is a moderate bilateral pleural effusions noted right greater than left. Basilar compressive atelectasis. Computed tomography scan of the abdomen and pelvis revealed possible small bowel enteritis. Moderate bilateral pleural effusions with basilar compressive atelectasis. Mild ascites throughout the abdomen. Nonobstructing left renal calculus. Echocardiogram revealed reduced left ventricular systolic function with ejection fraction of 35%. Calcific aortic valve with peak gradient of greater than 80 mmHg and mean gradient of greater than 50 mmHg along with moderate aortic regurgitation. Severe aortic stenosis. He did undergo debridement of the wound of the left foot. He is seen today in consultation on the selective care unit. Currently sitting up in a chair at the bedside. Awake and alert in no acute distress. He is maintaining O2 saturations in the 90s on 2 L/m per nasal cannula. He denies any cigarette smoking. He admits to occasional marijuana use. Not on home oxygen. Not on home inhalers. White count 6.8. Hemoglobin 13.6. Platelets 181. Sodium 141. Potassium 3.8. Bicarb 30. BUN 21. Creatinine 0.91. Glucose 215. Influenza screen negative. RSV screen negative. COVID-19 screen negative. ProBNP 8850. Troponin negative 1. AST 17. ALT 18. Currently he denies any worsening shortness of breath, cough or congestion. He is dyspneic with conversation. Dyspneic with exertion. No hemoptysis. Blood cultures are revealing no growth. Left foot cultures pending. He's been initiated on vancomycin per ID services. He is initiated on IV diuretics. Heparin for DVT prophylaxis. Progress note dated 09/18/2022. 67-year-old male seen again in room 359. The patient was seen yesterday in [facility] with shortness of breath, CHF. Currently, he is doing better. 2 L of oxygen. He's not receiving any IV fluids. He remains on vancomycin for a left foot infection. White count 5.8, hemoglobin 12.7, hematocrit 39.3, and platelet count normal. Sodium 139, potassium 3.7, chlorides 101, CO2 32, BUN 38, and creatinine 1.04. Progress note dated 09/19/2022. 67-year-old male who was seen 2 days ago in consultation. The patient is seen again today in room 359. Currently he is on room air oxygen. Saturations are 92%. He's not receiving any IV fluids. Wound cultures are showing evidence of gram-negative bacilli. He remains on cefepime. Clinically, the patient's doing well. The patient does have a history of symptomatic aortic stenosis. The patient may eventually need either valve surgery, or transcatheter aortic valve replacement. Sodium 139, potassium 3.6, chlorides 101, CO2 32, BUN 41, and creatinine 0.93. Objective - Vital Signs Vital signs: Vital Signs Temp 97.2 F L 09/19/22 08:00 Pulse 72 09/19/22 08:00 Resp 18 09/19/22 08:00 BP 84/51 09/19/22 08:00 Pulse Ox 92 L 09/19/22 08:00 FiO2 Intake & Output 09/18/22 09/19/22 09/19/22 18:59 06:59 18:59 Output Total 0 Balance 0 Weight 111.6 kg 110 kg Output: Urine 0 Other: Voiding Method Toilet Toilet Toilet # Voids 1 1 - Exam No acute distress, oriented 3. No overt respiratory distress. Currently on room air. HEENT examination is grossly unremarkable. Mucous membranes are moist. No oral lesions. Neck supple. Full range of motion. No adenopathy thyromegaly or neck vein distention. Cardiovascular examination reveals regular rhythm rate. S1-S2 normal. No S3 or S4. Soft systolic murmurs noted. Heart sounds are distant. Heart rate is 72 bpm. Lungs reveal scattered bilateral and bibasilar crackles. Diffuse rhonchi are noted. Breath sounds equal. Room air saturation 92%. Abdomen soft bowel sounds are heard. No masses or tenderness. Extremities are intact. No cyanosis clubbing or edema. Left foot is wrapped. Skin is without rash or lesion. Neurologic examination is brief but nonfocal. - Labs CBC & Chem 7: 09/18/22 05:37 09/19/22 09:49 Labs: Abnormal Lab Results - Last 24 Hours (Table) 09/18/22 09/18/22 09/18/22 Range/Units 11:33 16:35 20:05 Carbon Dioxide (22-30) mmol/L BUN (9-20) mg/dL Glucose (74-99) mg/dL POC Glucose (mg/dL) 147 H 185 H 181 H (70-110) mg/dL 09/19/22 09/19/22 Range/Units 06:03 09:49 Carbon Dioxide 32 H (22-30) mmol/L BUN 41 H (9-20) mg/dL Glucose 166 H (74-99) mg/dL POC Glucose (mg/dL) 145 H (70-110) mg/dL Microbiology - Last 24 Hours (Table) 09/15/22 11:05 Blood Culture - Preliminary Blood No Growth after 72 hours 09/15/22 10:50 Blood Culture - Preliminary Blood No Growth after 72 hours 09/16/22 17:00 Gram Stain - Preliminary Foot - Left Tissue Culture - Preliminary Gram Neg Bacilli Assessment and Plan Assessment: Acute hypoxemic respiratory failure secondary to bilateral pleural effusions right greater than left suspect secondary to severe aortic stenosis. Severe aortic stenosis. Acute systolic congestive heart failure with ejection fraction of 35-40%. Left lower extremity/foot cellulitis, cultures are pending. Gram-negative bacilli was seen in the wound evaluation. History of marijuana use. Morbid obesity. No primary care provider, no healthcare maintenance follow-up. Plan: Plan dated 09/18/2022. The patient appears to be relatively comfortable. Apparently the patient is going to be treated for his foot infection, and will see cardiology in follow-up next week. No additional recommendations at this time. The patient is encouraged to find a family doctor, and start seeing a doctor on a regular basis. Up to this point, the patient has really not been seeing any physicians. He was on no medication at home. He is encouraged to stop smoking marijuana. Microbiologic studies are thus far negative. Labs, x-rays, and medications are reviewed. Plan dated 09/19/2022. Wound sampling shows evidence of gram-negative bacilli. The bacteria has not b een identified as yet. The patient continues on cefepime. He is on room air. Saturations are 92-93%. We will continue to follow and make recommendations along the way. The patient will follow with cardiology. They probably won't want to do anything until there is adequate healing of the left foot wound. Time with Patient: Less than 30
[2022-09-19 11:37] LABS: Glucose,Whole Blood 148 mg/dL (70-110)
[2022-09-19] MEDS: METOPROLOL TARTRATE 50 MG TAB PO SCH ×2 (13:19→20:17)
[2022-09-19] MEDS: FUROSEMIDE 10 MG/ML 4 ML VIAL IV SCH ×2 (13:19→20:17)
--- NOTE | 2022-09-19 13:20 | P.PN ---
Subjective Progress Note Date: 09/19/22 History of present illness: This is a 67-year-old male that does not follow with a PCP usually goes to [facility] for medical care. Patient denies history of cardiac disease. Patient is not on any home medications. We have been asked to evaluate the patient for new heart failure. Patient presented to the hospital due to shortness of breath going on for a week and gradually worsening. He denies having any chest pain. Has been sleeping on 3 pillows. No PND. Patient has had increased edema to the lower extremities and cellulitis was diagnosed of the left lower leg. No fever or chills. No cough. EKG sinus rhythm with left ventricle hypertrophy, right bundle branch block Troponin negative 1. ProBNP 8850, CBC within normal limits. BUN 21, creatinine 0.8. Potassium 4.2. Blood sugar 219. Patient denies known history of diabetes Chest x-ray: Right lower lobe infiltrate and pleural effusion correlate for pneumonia. CTA no pulmonary embolism. Moderate bilateral pleural effusion right greater than left. 09/18 Patient is seen today in follow-up. Yesterday, echocardiogram revealed EF of 35% with pulmonary hypertension severe aortic stenosis. It was discussed with the patient that once his breathing status is improved and foot wound is healed, patient will need to undergo MICHELLE and right and left heart catheterization to assess the status of the coronaries and status of aortic valve for possible aortic valve replacement. He has been on IV Lasix 40 mg every 8 hours and metoprolol 50 mg twice daily (off coreg). Patient has been diuresing well and noted weight loss. Heart rate is running in the 60s and 70s in sinus rhythm Patient is also followed by Dr. Worley and Dr. Skinner regarding the left foot wound on antibiotics status post debridement. Repeat blood work reveals WBC 5.8, hemoglobin 12.7, platelet count 154. Sodium 139, potassium 3.7, BUN 38 and creatinine 1. 09/19 He reports that his breathing continues to feel better. He still has edema in bilateral lower extremities. He does not feel back at his baseline yet. He complains of left foot pain. Creatinine is stable 0.93. Physical examination: Gen: This is a morbidly obese 67-year-old male. No acute distress. VS: reviewed HEENT: Head is atraumatic, normocephalic. Pupils equal, round. Sclerae is anicteric. NECK: Supple. No JVD. . LUNGS: Diminished bilaterally. No wheezes or rhonchi. No intercostal retractions. HEART: Regular rate and rhythm. Systolic ejection murmur 3/6. ABDOMEN: Soft No tenderness. Obese. EXTREMITIES: 1+plus pedal edema. Linear abrasions to the right lower extremity, dressing in place to the left ankle. NEUROLOGICAL: Patient is awake, alert and oriented x3. Assessment: Bilateral pleural effusions Acute diastolic heart failure Severe aortic stenosis New diagnosis of diabetes, A1c 9.1 Left foot wound status post debridement Plan: Continue patient on IV Lasix 40 mg every 12 hours. He needs further diuresis prior to discharge home. Patient to follow-up with Dr. Gray in the office next week for scheduling of MICHELLE and scheduling of right and left heart catheterizations. Continue to monitor I&O, daily weights, electrolytes and renal function. Further recommendations to follow based upon clinical course. We will follow. Nurse practitioner note has been reviewed, I agree with documented findings and plan of care. Patient was seen and examined. Objective - Vital Signs Vital signs: Vital Signs Temp 98.0 F 09/19/22 00:00 Pulse 68 09/19/22 04:00 Resp 18 09/19/22 04:00 BP 99/56 09/19/22 04:00 Pulse Ox 92 L 09/19/22 04:00 FiO2 Intake & Output 09/18/22 09/19/22 09/19/22 18:59 06:59 18:59 Output Total 0 Balance 0 Weight 111.6 kg 110 kg Output: Urine 0 Other: Voiding Method Toilet Toilet # Voids 1 - Labs CBC & Chem 7: 09/18/22 05:37 09/19/22 09:49 Labs: Abnormal Lab Results - Last 24 Hours (Table) 09/18/22 09/18/22 09/18/22 Range/Units 11:33 16:35 20:05 POC Glucose (mg/dL) 147 H 185 H 181 H (70-110) mg/dL 09/19/22 Range/Units 06:03 POC Glucose (mg/dL) 145 H (70-110) mg/dL Microbiology - Last 24 Hours (Table) 09/15/22 11:05 Blood Culture - Preliminary Blood No Growth after 72 hours 09/15/22 10:50 Blood Culture - Preliminary Blood No Growth after 72 hours 09/16/22 17:00 Gram Stain - Preliminary Foot - Left Tissue Culture - Preliminary Gram Neg Bacilli
[2022-09-19] MEDS ORDERED: Acetaminophen-Codeine 300-30mg TAB PO STA (14:12)
--- NOTE | 2022-09-19 14:12 | P.PN ---
Subjective Patient is a 67-year-old male without significant past medical history, currently everyday smoker and daily marijuana use presents to ER with complaints of worsening shortness of breath, exertional dyspnea during the last 2 days. Symptoms have been present for the past 2 weeks patient also felt very weak. He has been having lower extremity worsening swelling. Was also having increased abdominal girth. Patient was using 3 pillows at home but still is becoming short of breath. Denies any complaints of chest pain. No nausea vomiting abdominal pain or diarrhea. Denies recent illnesses. No prior history of coronary artery disease.. Patient was having severe leg swelling and does have a wound over the dorsum of the left foot. No prior history of diabetes. Denies any fever or chills. Chest x-ray showed right lower lobe infiltrate and pleural effusion noted. Correlate for pneumonia. Foot x-ray showed correlate for soft tissue cellulitis EKG showed sinus rhythm. CTA chest showed no evidence for PE. Lungs are clear and free of infiltrate. No pulmonary nodules or masses detected. Moderate bilateral pleural effusions noted right greater than left with bilateral compressive atelectasis. CT of the abdomen pelvis. Correlate for small bowel enteritis. Mild ascites throughout the abdomen. Nonobstructing renal calculus. Laboratory data showed WBC 7.7 hemoglobin 14.9 and platelets 205 D-dimer 0.53 Sodium 138 potassium 4.2 chloride 102 bicarb is 30 BUN 21 creatinine 0.8 and blood sugar is 219 Calcium 8.1 Loramyc not elevated proBNP 88.0 Influenza A, B and COVID-19 PCR and RSV not detected. 09/16/2022 Patient is currently lying in bed. Awake alert and oriented x3. Slightly better. Left foot wound status post debridement by vascular surgery and wound culture was sent. Patient is being continued on vancomycin. Otherwise patient is on Lasix 40 mg every 12. Cardiology is on board. 2D echocardiogram showed LV systolic function 35% with reduced excursion of the aortic valve leaflets. Calcific aortic valve with peak gradient of greater than 80 mmHg and mean gradient greater than 50 mmHg along with moderate aortic regurgitation in the setting of severely reduced LV function. Severe aortic stenosis. Laboratory data showed sodium 141 potassium 3.8 chloride 102 bicarb is 30 BUN 21 creatinine 0.91 blood sugar is 166 and A1c 9.1 calcium 9.0 LDL 90.5 and TSH 2.6 within normal limits 09/17/2022 Patient is currently resting in bed. Awake alert and oriented 3. Still having bilateral lower extremity swelling. Breathing status is improving. Continue with Lasix IV 40 mg twice daily. Pulmonary was consulted due to bilateral pleural effusion. Otherwise patient is on antibiotics for diabetic foot ulcer. Chest pain. No nausea vomiting abdominal pain or diarrhea. Patient feels better. No fever no chills. 09/18/2022 This is a pleasant 67 years old male who does not follow up outpatient presents with left wound and cellulitis. he Is a status post debridement by surgery team His currently been covered with IV cefepime, blood culture is growing gram- negative bacilli. His hemoglobin A1c is elevated 9.1%, patient has diabetes Also patient with severe aortic valve stenosis and evidence of new onset CHF w ith ejection fraction 35-40% Patient currently on IV Lasix 40 mg every 8 hours patient will require aortic valve treatment and cardiology on the case 09/19/2022 Patient states that his breathing is okay with little cough no chest pain His right foot healing slowly. He still complains from pain in his right foot. Cultures showed gram-negative bacilli that is currently on cefepime Patient informed about his high hemoglobin A1c, he confirms he is diabetic but is not on medications His creatinine normal 0.5 therefore, to start him on metformin 500 mg as well as Tylenol No. 3 Objective - Vital Signs Vital signs: Vital Signs Temp 98.0 F 09/19/22 00:00 Pulse 68 09/19/22 04:00 Resp 18 09/19/22 04:00 BP 99/56 09/19/22 04:00 Pulse Ox 92 L 09/19/22 04:00 FiO2 Intake & Output 09/18/22 09/19/22 09/19/22 18:59 06:59 18:59 Output Total 0 Balance 0 Weight 111.6 kg 110 kg Output: Urine 0 Other: Voiding Method Toilet Toilet # Voids 1 1 - Exam GENERAL: The patient is alert and oriented x3, not in any acute distress. Well developed, well nourished. HEENT: Pupils are round and equally reacting to light. EOMI. No scleral icterus. No conjunctival pallor. Normocephalic, atraumatic. No pharyngeal erythema. No th yromegaly. CARDIOVASCULAR: S1 and S2 present. No murmurs, rubs, or gallops. PULMONARY: Chest is clear to auscultation, no wheezing or crackles. ABDOMEN: Soft, nontender, nondistended, normoactive bowel sounds. No palpable organomegaly. MUSCULOSKELETAL: No joint swelling or deformity. -EXTREMITIES: No cyanosis, clubbing, or pedal edema. Right foot wound is healing NEUROLOGICAL: Gross neurological examination did not reveal any focal deficits. SKIN: No rashes. no petechiae. - Labs CBC & Chem 7: 09/18/22 05:37 09/19/22 09:49 Labs: Abnormal Lab Results - Last 24 Hours (Table) 09/18/22 09/18/22 09/18/22 Range/Units 11:33 16:35 20:05 POC Glucose (mg/dL) 147 H 185 H 181 H (70-110) mg/dL 09/19/22 Range/Units 06:03 POC Glucose (mg/dL) 145 H (70-110) mg/dL Microbiology - Last 24 Hours (Table) 09/15/22 11:05 Blood Culture - Preliminary Blood No Growth after 72 hours 09/15/22 10:50 Blood Culture - Preliminary Blood No Growth after 72 hours 09/16/22 17:00 Gram Stain - Preliminary Foot - Left Tissue Culture - Preliminary Gram Neg Bacilli Assessment and Plan Assessment: Acute CHF with severely reduced ejection fraction 35%. New onset. Acute hypoxic respiratory failure secondary to above Bilateral pleural effusion and mild ascites likely due to CHF. Left diabetic foot wound on the dorsal surface with surrounding cellulitis Diabetes type 2 new diagnosis A1c 9.1 Morbid obesity with BMI 40.5 Ongoing nicotine addiction and marijuana use Plan: Continue with IV Lasix, decreased rectal twice a day Antibiotics were adjusted to cefepime Surgical consult is from the case including cardiology, pulmonary Infectious disease and surgical team consult Follow-up with wound culture and sensitivity Patient with new onset diabetes Labs and medication were reviewed.. Continue same treatment. Continue with symptomatic treatment. Resume home medication. Monitor labs and vitals. DVT and GI prophylaxis. Further recommendations as per clinical course of the patient DVT prophylaxis: Subcutaneous heparin GI Prophylaxis: Pepcid PT/OT: Pending Prognosis is guarded
[2022-09-19 16:19] LABS: Glucose,Whole Blood 184 mg/dL (70-110)
[2022-09-19] MEDS: metFORMIN 500 MG TAB PO SCH (17:07)
[2022-09-19 20:16] LABS: Glucose,Whole Blood 210 mg/dL (70-110)
[2022-09-19] MEDS: FAMOTIDINE 20 MG TAB PO SCH (20:17)
[2022-09-20] MEDS: CEFEPIME 2 GM in SODIUM CHLORIDE 0.9% 100 ML IVPB SCH ×2 (00:48→08:44)
[2022-09-20] MEDS: HEPARIN SODIUM,PORCINE/PF 5,000 UNIT/0.5 ML SYRINGE SQ SCH ×4 (00:48→23:47)
[2022-09-20 06:10] LABS: Glucose,Whole Blood 123 mg/dL (70-110)
[2022-09-20] MEDS: metFORMIN 500 MG TAB PO SCH ×2 (06:55→17:35)
[2022-09-20] MEDS: ASPIRIN 81 MG PO SCH (08:44)
[2022-09-20] MEDS: COLLAGENASE 250 UNIT/GM OINTMENT 30 GM TUBE TOPICAL SCH (08:44)
[2022-09-20] MEDS: FAMOTIDINE 20 MG TAB PO SCH ×2 (08:44→21:19)
[2022-09-20] MEDS: FUROSEMIDE 10 MG/ML 4 ML VIAL IV SCH ×2 (08:44→21:19)
[2022-09-20] MEDS: METOPROLOL TARTRATE 50 MG TAB PO SCH ×2 (08:44→21:19)
[2022-09-20 10:14] LABS: African American GFR (CKD) >90 (>60 ml/min/1.73 sqM); Anion Gap 5 mmol/L; Blood Urea Nitrogen 40 mg/dL (9-20); Calcium 8.7 mg/dL (8.4-10.2); Carbon Dioxide 33 mmol/L (22-30); Chloride 100 mmol/L (98-107); Glucose 137 mg/dL (74-99); Non-African American GFR(CKD) 82 (>60 ml/min/1.73 sqM); Potassium 3.6 mmol/L (3.5-5.1); Sodium 138 mmol/L (137-145)
[2022-09-20] MEDS ORDERED: VANCOMYCIN IV PER PHARMACY 1 EACH MISC MISCELLANE PRN (10:34)
--- NOTE | 2022-09-20 10:38 | P.PN ---
Subjective Progress Note Date: 09/19/22 Principal diagnosis: Left foot wound and cellulitis Patient is a 67-year-old male who has not seen a physician in many years presented to hospital with multiple symptoms including increasing shortness of breath bilateral worsening swelling and did have a nonhealing wound on the dorsum aspect of his left foot patient has been evaluated by vascular surgery and did have a bedside debridement on 09/16/2022 and cultures On today's evaluation and that is 09/19/2022, the patient remains to be afebrile, the patient is breathing comfortably on room and denies any chest pain occasional cough no nausea no vomiting no abdominal pain no diarrhea or any worsening pain to the left foot Objective - Vital Signs Vital signs: Vital Signs Temp 97.2 F L 09/19/22 08:00 Pulse 72 09/19/22 08:00 Resp 18 09/19/22 08:00 BP 84/51 09/19/22 08:00 Pulse Ox 92 L 09/19/22 08:00 FiO2 Intake & Output 09/18/22 09/19/22 09/19/22 18:59 06:59 18:59 Output Total 0 Balance 0 Weight 111.6 kg 110 kg Output: Urine 0 Other: Voiding Method Toilet Toilet Toilet # Voids 1 2 # Bowel Movements 1 - Exam GENERAL DESCRIPTION: An elderly male up in the chair in no distress RESPIRATORY SYSTEM: Unlabored breathing , decreased breath sounds at bases HEART: S1 S2 regular rate and rhythm , ABDOMEN: Soft , no tenderness EXTREMITIES: Left foot is currently dressed no drainage of the dressing - Labs CBC & Chem 7: 09/18/22 05:37 09/20/22 09:19 Labs: Abnormal Lab Results - Last 24 Hours (Table) 09/18/22 09/18/22 09/19/22 Range/Units 16:35 20:05 06:03 Carbon Dioxide (22-30) mmol/L BUN (9-20) mg/dL Glucose (74-99) mg/dL POC Glucose (mg/dL) 185 H 181 H 145 H (70-110) mg/dL 09/19/22 09/19/22 Range/Units 09:49 11:35 Carbon Dioxide 32 H (22-30) mmol/L BUN 41 H (9-20) mg/dL Glucose 166 H (74-99) mg/dL POC Glucose (mg/dL) 148 H (70-110) mg/dL Microbiology - Last 24 Hours (Table) 09/15/22 11:05 Blood Culture - Preliminary Blood No Growth after 96 hours 09/15/22 10:50 Blood Culture - Preliminary Blood No Growth after 96 hours 09/16/22 17:00 Gram Stain - Preliminary Foot - Left Tissue Culture - Preliminary Gram Neg Bacilli Assessment and Plan (1) Cellulitis Current Visit: Yes Status: Acute Code(s): L03.90 - CELLULITIS, UNSPECIFIED SNOMED Code(s): 328574470 (2) Wound of left foot Current Visit: Yes Status: Acute Code(s): S91.302A - UNSPECIFIED OPEN WOUND, LEFT FOOT, INITIAL ENCOUNTER SNOMED Code(s): 060089771 Plan: 1patient with a left lower extremity wound possibly started as a blister as the patient did have evidence of significant swelling to bilateral lower extremity and fluid overload and is being worked up for cardiac etiology under care of cardiology patient did have a necrotic base for the patient did have debridement done by vascular surgeon and deep cultures are currently growing gram-negative with ID sensitivities currently pending 2-patient to continue with cefepime while waiting for the cultures to finalize Time with Patient: Less than 30
[2022-09-20 11:44] LABS: Glucose,Whole Blood 131 mg/dL (70-110)
--- NOTE | 2022-09-20 11:59 | P.PN ---
Progress Note - Text 67-year-old gentleman patient had a wound left foot dorsum aspect at base of the third fourth and fifth toe on dorsum aspect we did the deep debridement of the Dupuytren's tissue was removed culture report came as methicillin-resistant staph aureus, E. coli and, strep be we've been doing bedside debridement also and we placed a central cream some of the granulation tissues coming today we've changed the dressing patient is under care of infectious disease for IV antibiotic continue with local wound care and IV antibiotic we will change her dressing tomorrow
--- NOTE | 2022-09-20 12:17 | P.PN ---
Subjective Progress Note Date: 09/20/22 Principal diagnosis: Shortness of breath. This is a very pleasant 67-year-old male patient with no past significant medical history. He does not have a PCP. On no home prescribed medications. Over the past 2 weeks she's been having increasing shortness of breath and dyspnea on exertion. He's been having some dizzy spells as well. He also has been having issues with his left foot appearing infected. He presented here to the emergency room on 09/15/2022 for the same. Chest x-ray reveals a right lower lobe infiltrate/pleural effusion. X-ray of the left foot revealed p ossible soft tissue cellulitis. CT angiogram ruled out pulmonary embolism. Lungs were clear of infiltrate. No pulmonary nodules or masses detected. There is a moderate bilateral pleural effusions noted right greater than left. Basilar compressive atelectasis. Computed tomography scan of the abdomen and pelvis revealed possible small bowel enteritis. Moderate bilateral pleural effusions with basilar compressive atelectasis. Mild ascites throughout the abdomen. Nonobstructing left renal calculus. Echocardiogram revealed reduced left ventricular systolic function with ejection fraction of 35%. Calcific aortic valve with peak gradient of greater than 80 mmHg and mean gradient of greater than 50 mmHg along with moderate aortic regurgitation. Severe aortic stenosis. He did undergo debridement of the wound of the left foot. He is seen today in consultation on the selective care unit. Currently sitting up in a chair at the bedside. Awake and alert in no acute distress. He is maintaining O2 saturations in the 90s on 2 L/m per nasal cannula. He denies any cigarette smoking. He admits to occasional marijuana use. Not on home oxygen. Not on home inhalers. White count 6.8. Hemoglobin 13.6. Platelets 181. Sodium 141. Potassium 3.8. Bicarb 30. BUN 21. Creatinine 0.91. Glucose 215. Influenza screen negative. RSV screen negative. COVID-19 screen negative. ProBNP 8850. Troponin negative 1. AST 17. ALT 18. Currently he denies any worsening shortness of breath, cough or congestion. He is dyspneic with conversation. Dyspneic with exertion. No hemoptysis. Blood cultures are revealing no growth. Left foot cultures pending. He's been initiated on vancomycin per ID services. He is initiated on IV diuretics. Heparin for DVT prophylaxis. Progress note dated 09/18/2022. 67-year-old male seen again in room 359. The patient was seen yesterday in [facility] with shortness of breath, CHF. Currently, he is doing better. 2 L of oxygen. He's not receiving any IV fluids. He remains on vancomycin for a left foot infection. White count 5.8, hemoglobin 12.7, hematocrit 39.3, and platelet count normal. Sodium 139, potassium 3.7, chlorides 101, CO2 32, BUN 38, and creatinine 1.04. Progress note dated 09/19/2022. 67-year-old male who was seen 2 days ago in consultation. The patient is seen again today in room 359. Currently he is on room air oxygen. Saturations are 92%. He's not receiving any IV fluids. Wound cultures are showing evidence of gram-negative bacilli. He remains on cefepime. Clinically, the patient's doing well. The patient does have a history of symptomatic aortic stenosis. The patient may eventually need either valve surgery, or transcatheter aortic valve replacement. Sodium 139, potassium 3.6, chlorides 101, CO2 32, BUN 41, and creatinine 0.93. Progress note dated 09/20/2022. 67-year-old male seen in room 359. Currently, he's on room air. He's not receiving any IV fluids. The patient is feeling better. He continues on cefepime. Wound cultures from the left foot grow a number different organisms including Escherichia coli, methicillin-resistant staph aureus, and group D enterococcus, as well as others. Sodium 138, potassium 3.6, chlorides 100, CO2 33, BUN 40, creatinine 0.96. Calcium is 8.7. Objective - Vital Signs Vital signs: Vital Signs Temp 98.4 F 09/20/22 08:00 Pulse 69 09/20/22 08:00 Resp 18 09/20/22 08:00 BP 87/50 09/20/22 08:00 Pulse Ox 86 L 09/20/22 08:00 FiO2 Intake & Output 09/19/22 09/20/22 09/20/22 18:59 06:59 18:59 Intake Total 236 20 Output Total 0 Balance 236 0 20 Weight 110 kg 107.9 kg Intake: Oral 236 20 Output: Urine 0 Other: Voiding Method Toilet Toilet Toilet # Voids 2 2 # Bowel Movements 1 1 - Exam No acute distress, oriented 3. No overt respiratory distress. Currently on room air. HEENT examination is grossly unremarkable. Mucous membranes are moist. No oral lesions. Neck supple. Full range of motion. No adenopathy thyromegaly or neck vein distention. Cardiovascular examination reveals regular rhythm rate. S1-S2 normal. No S3 or S4. Soft systolic murmurs noted. Heart sounds are distant. Heart rate is 69 bpm. Lungs reveal scattered bilateral and bibasilar crackles. Diffuse rhonchi are noted. Breath sounds equal. Room air saturation 91 %. Abdomen soft bowel sounds are heard. No masses or tenderness. Extremities are intact. No cyanosis clubbing or edema. Left foot is wrapped. Skin is without rash or lesion. Neurologic examination is brief but nonfocal. - Labs CBC & Chem 7: 09/18/22 05:37 09/20/22 09:19 Labs: Abnormal Lab Results - Last 24 Hours (Table) 09/19/22 09/19/22 09/20/22 Range/Units 16:10 20:14 06:09 Carbon Dioxide (22-30) mmol/L BUN (9-20) mg/dL Glucose (74-99) mg/dL POC Glucose (mg/dL) 184 H 210 H 123 H (70-110) mg/dL 09/20/22 09/20/22 Range/Units 09:19 11:42 Carbon Dioxide 33 H (22-30) mmol/L BUN 40 H (9-20) mg/dL Glucose 137 H (74-99) mg/dL POC Glucose (mg/dL) 131 H (70-110) mg/dL Microbiology - Last 24 Hours (Table) 09/16/22 17:00 Gram Stain - Final Foot - Left Tissue Culture - Final Escherichia coli Pantoea agglomerans Methicillin resist S. aureus Group D Enterococcus Strep agalactiae - (group b) 09/15/22 11:05 Blood Culture - Preliminary Blood No Growth after 96 hours 09/15/22 10:50 Blood Culture - Preliminary Blood No Growth after 96 hours Assessment and Plan Assessment: Acute hypoxemic respiratory failure secondary to bilateral pleural effusions right greater than left, secondary to severe aortic stenosis. Severe aortic stenosis. Acute systolic congestive heart failure with ejection fraction of 35-40%. Left lower extremity/foot cellulitis, cultures are revealing Escherichia coli, m ethicillin-resistant staph aureus, group D enterococcus, and others. The patient continues on cefepime. History of marijuana use. Morbid obesity. No primary care provider, no healthcare maintenance follow-up. Plan: Plan dated 09/18/2022. The patient appears to be relatively comfortable. Apparently the patient is going to be treated for his foot infection, and will see cardiology in follow-up next week. No additional recommendations at this time. The patient is encouraged to find a family doctor, and start seeing a doctor on a regular basis. Up to this point, the patient has really not been seeing any physicians. He was on no medication at home. He is encouraged to stop smoking marijuana. Microbiologic studies are thus far negative. Labs, x-rays, and medications are reviewed. Plan dated 09/19/2022. Wound sampling shows evidence of gram-negative bacilli. The bacteria has not been identified as yet. The patient continues on cefepime. He is on room air. Saturations are 92-93%. We will continue to follow and make recommendations along the way. The patient will follow with cardiology. They probably won't want to do anything until there is adequate healing of the left foot wound. Plan dated 09/20/2022. Wound cultures from the left foot are reviewed. The patient continues on cefepime. Medically, he feels better. He is on room air. Is not receiving any IV fluids. We will continue to follow make recommendations along the way. Prognosis is guarded. Time with Patient: Less than 30
[2022-09-20] MEDS: VANCOMYCIN 1,750 MG in SODIUM CHLORIDE 0.9% 500 ML 500 ML IVPB SCH ×2 (12:39→23:47)
--- NOTE | 2022-09-20 14:00 | P.PN ---
Subjective Progress Note Date: 09/20/22 History of present illness: This is a 67-year-old male that does not follow with a PCP usually goes to [facility] for medical care. Patient denies history of cardiac disease. Patient is not on any home medications. We have been asked to evaluate the patient for new heart failure. Patient presented to the hospital due to shortness of breath going on for a week and gradually worsening. He denies having any chest pain. Has been sleeping on 3 pillows. No PND. Patient has had increased edema to the lower extremities and cellulitis was diagnosed of the left lower leg. No fever or chills. No cough. EKG sinus rhythm with left ventricle hypertrophy, right bundle branch block Troponin negative 1. ProBNP 8850, CBC within normal limits. BUN 21, creatinine 0.8. Potassium 4.2. Blood sugar 219. Patient denies known history of diabetes Chest x-ray: Right lower lobe infiltrate and pleural effusion correlate for pneumonia. CTA no pulmonary embolism. Moderate bilateral pleural effusion right greater than left. 09/18 Patient is seen today in follow-up. Yesterday, echocardiogram revealed EF of 35% with pulmonary hypertension severe aortic stenosis. It was discussed with the patient that once his breathing status is improved and foot wound is healed, patient will need to undergo MICHELLE and right and left heart catheterization to assess the status of the coronaries and status of aortic valve for possible aortic valve replacement. He has been on IV Lasix 40 mg every 8 hours and metoprolol 50 mg twice daily (off coreg). Patient has been diuresing well and noted weight loss. Heart rate is running in the 60s and 70s in sinus rhythm Patient is also followed by Dr. Worley and Dr. Skinner regarding the left foot wound on antibiotics status post debridement. Repeat blood work reveals WBC 5.8, hemoglobin 12.7, platelet count 154. Sodium 139, potassium 3.7, BUN 38 and creatinine 1. 09/19 He reports that his breathing continues to feel better. He still has edema in bilateral lower extremities. He does not feel back at his baseline yet. He complains of left foot pain. Creatinine is stable 0.93. 09/20 He is doing well. Reports breathing continues to feel better. Weight down about 4 pounds. Denies any chest pain. Foot pain is tolerable. Creatinine stable at 0.96. ID following for IV antibiotics. Physical examination: Gen: This is a morbidly obese 67-year-old male. No acute distress. VS: reviewed HEENT: Head is atraumatic, normocephalic. Pupils equal, round. Sclerae is anicteric. NECK: Supple. No JVD. . LUNGS: Diminished bilaterally. No wheezes or rhonchi. No intercostal retractions. HEART: Regular rate and rhythm. Systolic ejection murmur 3/6. ABDOMEN: Soft No tenderness. Obese. EXTREMITIES: 1+plus pedal edema. Linear abrasions to the right lower extremity, dressing in place to the left ankle. NEUROLOGICAL: Patient is awake, alert and oriented x3. Assessment: Bilateral pleural effusions Acute diastolic heart failure Severe aortic stenosis New diagnosis of diabetes, A1c 9.1 Left foot wound status post debridement Plan: Blood pressure is still on lower end, reports some lightheadedness but not dizzy when out of bed. Continue patient on IV Lasix 40 mg every 12 hours. He needs further diuresis prior to discharge home. Patient to follow-up with Dr. Gray in the office next week for scheduling of MICHELLE and scheduling of right and left h eart catheterizations. Continue to monitor I&O, daily weights, electrolytes and renal function. We will follow. Objective - Vital Signs Vital signs: Vital Signs Temp 97.3 F L 09/20/22 04:00 Pulse 68 09/20/22 04:00 Resp 18 09/20/22 04:00 BP 110/66 09/20/22 04:00 Pulse Ox 95 09/20/22 04:00 FiO2 Intake & Output 09/19/22 09/20/22 09/20/22 18:59 06:59 18:59 Intake Total 236 20 Output Total 0 Balance 236 0 20 Weight 110 kg 107.9 kg Intake: Oral 236 20 Output: Urine 0 Other: Voiding Method Toilet Toilet # Voids 2 2 # Bowel Movements 1 1 - Labs CBC & Chem 7: 09/18/22 05:37 09/20/22 09:19 Labs: Abnormal Lab Results - Last 24 Hours (Table) 09/19/22 09/19/22 09/19/22 Range/Units 09:49 11:35 16:10 Carbon Dioxide 32 H (22-30) mmol/L BUN 41 H (9-20) mg/dL Glucose 166 H (74-99) mg/dL POC Glucose (mg/dL) 148 H 184 H (70-110) mg/dL 09/19/22 09/20/22 Range/Units 20:14 06:09 Carbon Dioxide (22-30) mmol/L BUN (9-20) mg/dL Glucose (74-99) mg/dL POC Glucose (mg/dL) 210 H 123 H (70-110) mg/dL Microbiology - Last 24 Hours (Table) 09/16/22 17:00 Gram Stain - Preliminary Foot - Left Tissue Culture - Preliminary Escherichia coli Pantoea agglomerans Presumptive Staph aureus Group D Enterococcus Strep agalactiae - (group b) 09/15/22 11:05 Blood Culture - Preliminary Blood No Growth after 96 hours 09/15/22 10:50 Blood Culture - Preliminary Blood No Growth after 96 hours
[2022-09-20 16:38] LABS: Glucose,Whole Blood 171 mg/dL (70-110)
--- NOTE | 2022-09-20 17:18 | P.PN ---
Subjective Progress Note Date: 09/20/22 Principal diagnosis: Left foot wound and cellulitis Patient is a 67-year-old male who has not seen a physician in many years presented to hospital with multiple symptoms including increasing shortness of breath bilateral worsening swelling and did have a nonhealing wound on the dorsum aspect of his left foot patient has been evaluated by vascular surgery and did have a bedside debridement on 09/16/2022 and cultures On today's evaluation and that is 09/20/2022, the patient continues to be afebrile, the patient is breathing comfortably on room, the patient denies any chest pain occasional cough no nausea no vomiting no abdominal pain no diarrhea or any worsening pain to the left foot Objective - Vital Signs Vital signs: Vital Signs Temp 98.4 F 09/20/22 08:00 Pulse 77 09/20/22 14:00 Resp 18 09/20/22 14:00 BP 97/66 09/20/22 12:00 Pulse Ox 96 09/20/22 12:00 FiO2 Intake & Output 09/19/22 09/20/22 09/20/22 18:59 06:59 18:59 Intake Total 236 170 Output Total 0 Balance 236 0 170 Weight 110 kg 107.9 kg Intake: Intake, IV Titration 150 Amount Cefepime 2 gm In Sodium 100 Chloride 0.9% 100 ml @ 25 mls/hr IVPB Q8HR [facility] Rx# :[id number] cefTRIAXone 2 gm In 50 Sodium Chloride 0.9% 50 ml @ 100 mls/hr IVPB Q24HR [facility] Rx#:[id number] Oral 236 20 Output: Urine 0 Other: Voiding Method Toilet Toilet Toilet # Voids 2 2 # Bowel Movements 1 1 - Exam GENERAL DESCRIPTION: An elderly male up in the chair in no distress RESPIRATORY SYSTEM: Unlabored breathing , decreased breath sounds at bases HEART: S1 S2 regular rate and rhythm , ABDOMEN: Soft , no tenderness EXTREMITIES: Left foot dorsum wound with slough tissue did have surrounding redness - Labs CBC & Chem 7: 09/18/22 05:37 09/20/22 09:19 Labs: Abnormal Lab Results - Last 24 Hours (Table) 09/19/22 09/19/22 09/20/22 Range/Units 16:10 20:14 06:09 Carbon Dioxide (22-30) mmol/L BUN (9-20) mg/dL Glucose (74-99) mg/dL POC Glucose (mg/dL) 184 H 210 H 123 H (70-110) mg/dL 09/20/22 09/20/22 Range/Units 09:19 11:42 Carbon Dioxide 33 H (22-30) mmol/L BUN 40 H (9-20) mg/dL Glucose 137 H (74-99) mg/dL POC Glucose (mg/dL) 131 H (70-110) mg/dL Microbiology - Last 24 Hours (Table) 09/16/22 17:00 Anaerobic Culture - Final Foot - Left Anaerobic Gm Negative Bacilli Anaerobic Gm Negative Bacilli#2 09/15/22 11:05 Blood Culture - Preliminary Blood No Growth after 120 hours 09/15/22 10:50 Blood Culture - Preliminary Blood No Growth after 120 hours 09/16/22 17:00 Gram Stain - Final Foot - Left Tissue Culture - Final Escherichia coli Pantoea agglomerans Methicillin resist S. aureus Group D Enterococcus Strep agalactiae - (group b) Assessment and Plan (1) Cellulitis Current Visit: Yes Status: Acute Code(s): L03.90 - CELLULITIS, UNSPECIFIED SNOMED Code(s): 374281526 (2) Wound of left foot Current Visit: Yes Status: Acute Code(s): S91.302A - UNSPECIFIED OPEN WOUND, LEFT FOOT, INITIAL ENCOUNTER SNOMED Code(s): 907994807 Plan: 1patient with a left lower extremity wound possibly started as a blister as the patient did have evidence of significant swelling to bilateral lower extremity and fluid overload and is being worked up for cardiac etiology under care of cardiology patient did have a necrotic base for the patient did have debridement done by vascular surgeon and deep cultures are currently growing MRSA, E. coli enterococcus and anaerobes 2-patient to continue with vancomycin pharmacy to dose along with Rocephin will add Flagyl patient will benefit from IV antibiotics on discharge local care to continue per surgery Time with Patient: Less than 30
[2022-09-20 20:52] LABS: Glucose,Whole Blood 151 mg/dL (70-110)
[2022-09-20] MEDS: metroNIDAZOLE 500 MG TAB PO SCH (21:19)
[2022-09-20] MEDS: Acetaminophen-Codeine 300-30mg TAB PO PRN (21:30)
--- NOTE | 2022-09-21 02:00 | P.PN ---
Subjective Progress Note Date: 09/20/22 Patient is a 67-year-old male without significant past medical history, currently everyday smoker and daily marijuana use presents to ER with complaints of worsening shortness of breath, exertional dyspnea during the last 2 days. Symptoms have been present for the past 2 weeks patient also felt very weak. He has been having lower extremity worsening swelling. Was also having increased abdominal girth. Patient was using 3 pillows at home but still is becoming short of breath. Denies any complaints of chest pain. No nausea vomiting abdominal pain or diarrhea. Denies recent illnesses. No prior history of coronary artery disease.. Patient was having severe leg swelling and does have a wound over the dorsum of the left foot. No prior history of diabetes. Denies any fever or chills. Chest x-ray showed right lower lobe infiltrate and pleural effusion noted. Correlate for pneumonia. Foot x-ray showed correlate for soft tissue cellulitis EKG showed sinus rhythm. CTA chest showed no evidence for PE. Lungs are clear and free of infiltrate. No pulmonary nodules or masses detected. Moderate bilateral pleural effusions noted right greater than left with bilateral compressive atelectasis. CT of the abdomen pelvis. Correlate for small bowel enteritis. Mild ascites throughout the abdomen. Nonobstructing renal calculus. Laboratory data showed WBC 7.7 hemoglobin 14.9 and platelets 205 D-dimer 0.53 Sodium 138 potassium 4.2 chloride 102 bicarb is 30 BUN 21 creatinine 0.8 and blood sugar is 219 Calcium 8.1 Loramyc not elevated proBNP 88.0 Influenza A, B and COVID-19 PCR and RSV not detected. 09/16/2022 Patient is currently lying in bed. Awake alert and oriented x3. Slightly better. Left foot wound status post debridement by vascular surgery and wound culture was sent. Patient is being continued on vancomycin. Otherwise patient is on Lasix 40 mg every 12. Cardiology is on board. 2D echocardiogram showed LV systolic function 35% with reduced excursion of the aortic valve leaflets. Calcific aortic valve with peak gradient of greater than 80 mmHg and mean gradient greater than 50 mmHg along with moderate aortic regurgitation in the setting of severely reduced LV function. Severe aortic stenosis. Laboratory data showed sodium 141 potassium 3.8 chloride 102 bicarb is 30 BUN 21 creatinine 0.91 blood sugar is 166 and A1c 9.1 calcium 9.0 LDL 90.5 and TSH 2.6 within normal limits 09/17/2022 Patient is currently resting in bed. Awake alert and oriented 3. Still having bilateral lower extremity swelling. Breathing status is improving. Continue with Lasix IV 40 mg twice daily. Pulmonary was consulted due to bilateral pleural effusion. Otherwise patient is on antibiotics for diabetic foot ulcer. Chest pain. No nausea vomiting abdominal pain or diarrhea. Patient feels better. No fever no chills. 09/18/2022 This is a pleasant 67 years old male who does not follow up outpatient presents with left wound and cellulitis. he Is a status post debridement by surgery team His currently been covered with IV cefepime, blood culture is growing gram- negative bacilli. His hemoglobin A1c is elevated 9.1%, patient has diabetes Also patient with severe aortic valve stenosis and evidence of new onset CHF with ejection fraction 35-40% Patient currently on IV Lasix 40 mg every 8 hours patient will require aortic valve treatment and cardiology on the case 09/19/2022 Patient states that his breathing is okay with little cough no chest pain His right foot healing slowly. He still complains from pain in his right foot. Cultures showed gram-negative bacilli that is currently on cefepime Patient informed about his high hemoglobin A1c, he confirms he is diabetic but is not on medications His creatinine normal 0.5 therefore, to start him on metformin 500 mg as well as Tylenol No. 3 09/20/2022 Patient is currently lying in the bed. Awake alert and oriented x3. Still having bilateral lower extremity swelling. No complaints of chest pain or worsening shortness of breath. Currently on room air. Continued on wound care. Wound culture showed gram-negative bacilli. Antibiotics changed to ceftriaxone Flagyl and vancomycin.. ID is on board. Otherwise patient is on IV Lasix and monitor renal function closely. Blood sugar is better controlled. Current medications reviewed. Objective - Vital Signs Vital signs: Vital Signs Temp 98.4 F 09/20/22 08:00 Pulse 64 09/20/22 12:00 Resp 18 09/20/22 08:00 BP 97/66 09/20/22 12:00 Pulse Ox 96 09/20/22 12:00 FiO2 Intake & Output 09/19/22 09/20/22 09/20/22 18:59 06:59 18:59 Intake Total 236 170 Output Total 0 Balance 236 0 170 Weight 110 kg 107.9 kg Intake: Intake, IV Titration 150 Amount Cefepime 2 gm In Sodium 100 Chloride 0.9% 100 ml @ 25 mls/hr IVPB Q8HR [facility] Rx# :[id number] cefTRIAXone 2 gm In 50 Sodium Chloride 0.9% 50 ml @ 100 mls/hr IVPB Q24HR [facility] Rx#:[id number] Oral 236 20 Output: Urine 0 Other: Voiding Method Toilet Toilet Toilet # Voids 2 2 # Bowel Movements 1 1 - Exam PHYSICAL EXAMINATION: Patient is lying in the bed. No distress... Awake alert and oriented.. HEENT: Normocephalic. Neck is supple. Pupils reactive. Nostrils clear. Oral cavity is moist. Neck reveals no JVD, carotid bruits, or thyromegaly. CHEST EXAMINATION: Trachea is central. Symmetrical expansion. Bibasilar diminished sounds and no wheezing. Nonlabored breathing.. CARDIAC: Normal S1, S2 with no gallops. No murmurs ABDOMEN: Soft. Bowel sounds present. Nontender. No organomegaly. No abdominal bruits. Extremities: Bilateral lower extremity with 3+ edema. No clubbing or cyanosis. Left foot dorsal wound is packed at this time. Neurologically awake, alert, oriented x3 with well-coordinated movements. No focal deficits noted Skin: No rash or skin lesions. Psychiatric: Coperative. Nonsuicidal, Musculoskeletal: No joint swelling or deformity. Normal range of motion. - Labs CBC & Chem 7: 09/18/22 05:37 09/20/22 09:19 Labs: Abnormal Lab Results - Last 24 Hours (Table) 09/19/22 09/19/22 09/20/22 Range/Units 16:10 20:14 06:09 Carbon Dioxide (22-30) mmol/L BUN (9-20) mg/dL Glucose (74-99) mg/dL POC Glucose (mg/dL) 184 H 210 H 123 H (70-110) mg/dL 09/20/22 09/20/22 Range/Units 09:19 11:42 Carbon Dioxide 33 H (22-30) mmol/L BUN 40 H (9-20) mg/dL Glucose 137 H (74-99) mg/dL POC Glucose (mg/dL) 131 H (70-110) mg/dL Microbiology - Last 24 Hours (Table) 09/15/22 11:05 Blood Culture - Preliminary Blood No Growth after 120 hours 09/15/22 10:50 Blood Culture - Preliminary Blood No Growth after 120 hours 09/16/22 17:00 Gram Stain - Final Foot - Left Tissue Culture - Final Escherichia coli Pantoea agglomerans Methicillin resist S. aureus Group D Enterococcus Strep agalactiae - (group b) Assessment and Plan Assessment: Acute CHF with severely reduced ejection fraction 35%. New onset. Severe aortic stenosis. Acute hypoxic respiratory failure secondary to above Bilateral pleural effusion and mild ascites likely due to CHF. Left diabetic foot wound on the dorsal surface with surrounding cellulitis Diabetes type 2 new diagnosis A1c 9.1 Morbid obesity with BMI 40.5 Ongoing nicotine addiction and marijuana use Plan: Continue with IV Lasix, decreased to twice a day Antibiotics were adjusted to cefepime Cardiology, pulmonary, ID and vascular surgery is on board. Follow-up with wound culture and sensitivity Patient with new onset diabetes Blood pressure is still marginal and is being continued on Lasix 40 mg twice daily. Patient will need outpatient follow-up with cardiology for MICHELLE and also cardiac catheterization once medically stable. Labs and medication were reviewed.. DVT prophylaxis: Subcutaneous heparin GI Prophylaxis: Pepcid PT/OT: Pending Prognosis is guarded Time with Patient: Greater than 30
[2022-09-21 06:08] LABS: Glucose,Whole Blood 131 mg/dL (70-110)
[2022-09-21] MEDS: metFORMIN 500 MG TAB PO SCH ×2 (06:58→16:42)
[2022-09-21] MEDS: Acetaminophen-Codeine 300-30mg TAB PO PRN ×2 (08:23→14:40)
[2022-09-21] MEDS: metroNIDAZOLE 500 MG TAB PO SCH ×3 (08:23→21:02)
[2022-09-21] MEDS: METOPROLOL TARTRATE 50 MG TAB PO SCH ×2 (08:23→21:02)
[2022-09-21] MEDS: ASPIRIN 81 MG PO SCH (08:23)
[2022-09-21] MEDS: FAMOTIDINE 20 MG TAB PO SCH ×2 (08:23→21:02)
[2022-09-21] MEDS: HEPARIN SODIUM,PORCINE/PF 5,000 UNIT/0.5 ML SYRINGE SQ SCH ×3 (08:24→23:40)
[2022-09-21] MEDS: COLLAGENASE 250 UNIT/GM OINTMENT 30 GM TUBE TOPICAL SCH (08:24)
[2022-09-21 09:36] LABS: Basophils % (A) 0 %; Eosinophils # (A) 0.3 k/uL (0-0.7); Eosinophils % (A) 6 %; HCT 38.8 % (39.0-53.0); Lymphocytes % (A) 21 %; MCHC 33.5 g/dL (31.0-37.0); MCV 83.4 fL (80.0-100.0); Monocytes # (A) 0.3 k/uL (0-1.0); Monocytes % (A) 6 %; Neutrophils % (A) 64 %; Platelet Count 145 k/uL (150-450); RBC 4.65 m/uL (4.30-5.90); RDW 13.6 % (11.5-15.5); WBC 4.7 k/uL (3.8-10.6)
[2022-09-21 10:07] LABS: African American GFR (CKD) >90 (>60 ml/min/1.73 sqM); Anion Gap 7 mmol/L; Blood Urea Nitrogen 35 mg/dL (9-20); Calcium 8.7 mg/dL (8.4-10.2); Carbon Dioxide 32 mmol/L (22-30); Chloride 101 mmol/L (98-107); Glucose 136 mg/dL (74-99); Non-African American GFR(CKD) 90 (>60 ml/min/1.73 sqM); Potassium 3.5 mmol/L (3.5-5.1); Sodium 140 mmol/L (137-145)
--- NOTE | 2022-09-21 10:37 | P.PN ---
Subjective Progress Note Date: 09/21/22 Principal diagnosis: Shortness of breath. This is a very pleasant 67-year-old male patient with no past significant medical history. He does not have a PCP. On no home prescribed medications. Over the past 2 weeks she's been having increasing shortness of breath and dyspnea on exertion. He's been having some dizzy spells as well. He also has been having issues with his left foot appearing infected. He presented here to the emergency room on 09/15/2022 for the same. Chest x-ray reveals a right lower lobe infiltrate/pleural effusion. X-ray of the left foot revealed p ossible soft tissue cellulitis. CT angiogram ruled out pulmonary embolism. Lungs were clear of infiltrate. No pulmonary nodules or masses detected. There is a moderate bilateral pleural effusions noted right greater than left. Basilar compressive atelectasis. Computed tomography scan of the abdomen and pelvis revealed possible small bowel enteritis. Moderate bilateral pleural effusions with basilar compressive atelectasis. Mild ascites throughout the abdomen. Nonobstructing left renal calculus. Echocardiogram revealed reduced left ventricular systolic function with ejection fraction of 35%. Calcific aortic valve with peak gradient of greater than 80 mmHg and mean gradient of greater than 50 mmHg along with moderate aortic regurgitation. Severe aortic stenosis. He did undergo debridement of the wound of the left foot. He is seen today in consultation on the selective care unit. Currently sitting up in a chair at the bedside. Awake and alert in no acute distress. He is maintaining O2 saturations in the 90s on 2 L/m per nasal cannula. He denies any cigarette smoking. He admits to occasional marijuana use. Not on home oxygen. Not on home inhalers. White count 6.8. Hemoglobin 13.6. Platelets 181. Sodium 141. Potassium 3.8. Bicarb 30. BUN 21. Creatinine 0.91. Glucose 215. Influenza screen negative. RSV screen negative. COVID-19 screen negative. ProBNP 8850. Troponin negative 1. AST 17. ALT 18. Currently he denies any worsening shortness of breath, cough or congestion. He is dyspneic with conversation. Dyspneic with exertion. No hemoptysis. Blood cultures are revealing no growth. Left foot cultures pending. He's been initiated on vancomycin per ID services. He is initiated on IV diuretics. Heparin for DVT prophylaxis. Progress note dated 09/18/2022. 67-year-old male seen again in room 359. The patient was seen yesterday in [facility] with shortness of breath, CHF. Currently, he is doing better. 2 L of oxygen. He's not receiving any IV fluids. He remains on vancomycin for a left foot infection. White count 5.8, hemoglobin 12.7, hematocrit 39.3, and platelet count normal. Sodium 139, potassium 3.7, chlorides 101, CO2 32, BUN 38, and creatinine 1.04. Progress note dated 09/19/2022. 67-year-old male who was seen 2 days ago in consultation. The patient is seen again today in room 359. Currently he is on room air oxygen. Saturations are 92%. He's not receiving any IV fluids. Wound cultures are showing evidence of gram-negative bacilli. He remains on cefepime. Clinically, the patient's doing well. The patient does have a history of symptomatic aortic stenosis. The patient may eventually need either valve surgery, or transcatheter aortic valve replacement. Sodium 139, potassium 3.6, chlorides 101, CO2 32, BUN 41, and creatinine 0.93. Progress note dated 09/20/2022. 67-year-old male seen in room 359. Currently, he's on room air. He's not receiving any IV fluids. The patient is feeling better. He continues on cefepime. Wound cultures from the left foot grow a number different organisms including Escherichia coli, methicillin-resistant staph aureus, and group D enterococcus, as well as others. Sodium 138, potassium 3.6, chlorides 100, CO2 33, BUN 40, creatinine 0.96. Calcium is 8.7. Progress note dated 09/21/2022. 67-year-old male seen in room 359. He's currently on room air. The patient is not receiving any IV fluids. His antibiotics have been changed to vancomycin, Rocephin, and Flagyl, as per infectious diseases. The patient is feeling well. White count 4.7, hemoglobin 13, hematocrit 38.8, and platelet count 145,000. Sodium 140, potassium 3.5, chlorides 101, CO2 32, BUN 35, creatinine 0.86. Objective - Vital Signs Vital signs: Vital Signs Temp 96.5 F L 09/21/22 08:30 Pulse 67 09/21/22 08:30 Resp 16 09/21/22 08:30 BP 92/54 09/21/22 08:30 Pulse Ox 94 L 09/21/22 08:30 FiO2 Intake & Output 09/20/22 09/21/22 09/21/22 18:59 06:59 18:59 Intake Total 770 540 Output Total 600 300 Balance 770 -600 240 Weight 107.1 kg Intake: Intake, IV Titration 150 Amount Cefepime 2 gm In Sodium 100 Chloride 0.9% 100 ml @ 25 mls/hr IVPB Q8HR [facility] Rx# :[id number] cefTRIAXone 2 gm In 50 Sodium Chloride 0.9% 50 ml @ 100 mls/hr IVPB Q24HR [facility] Rx#:[id number] Oral 620 540 Output: Urine 600 300 Other: Voiding Method Toilet Toilet Toilet # Voids 2 - Exam No acute distress, oriented 3. No overt respiratory distress. Currently on room air. HEENT examination is grossly unremarkable. Neck supple. Full range of motion. No adenopathy thyromegaly or neck vein distention. Cardiovascular examination reveals regular rhythm rate. S1-S2 normal. No S3 or S4. Soft systolic murmurs noted. Heart sounds are distant. Heart rate is 67 bpm. Lungs reveal scattered bilateral and bibasilar crackles. Diffuse rhonchi are noted. Breath sounds equal. Room air saturation 94 %. Abdomen soft bowel sounds are heard. No masses or tenderness. Extremities are intact. No cyanosis clubbing or edema. Left foot is wrapped. Skin is without rash or lesion. Neurologic examination is brief but nonfocal. - Labs CBC & Chem 7: 09/21/22 08:29 09/21/22 08:29 Labs: Abnormal Lab Results - Last 24 Hours (Table) 09/20/22 09/20/22 09/20/22 Range/Units 11:42 16:36 20:50 Hct (39.0-53.0) % Plt Count (150-450) k/uL Carbon Dioxide (22-30) mmol/L BUN (9-20) mg/dL Glucose (74-99) mg/dL POC Glucose (mg/dL) 131 H 171 H 151 H (70-110) mg/dL 09/21/22 09/21/22 09/21/22 Range/Units 06:05 08:29 08:29 Hct 38.8 L (39.0-53.0) % Plt Count 145 L (150-450) k/uL Carbon Dioxide 32 H (22-30) mmol/L BUN 35 H (9-20) mg/dL Glucose 136 H (74-99) mg/dL POC Glucose (mg/dL) 131 H (70-110) mg/dL Microbiology - Last 24 Hours (Table) 09/16/22 17:00 Anaerobic Culture - Final Foot - Left Anaerobic Gm Negative Bacilli Anaerobic Gm Negative Bacilli#2 09/15/22 11:05 Blood Culture - Preliminary Blood No Growth after 120 hours 09/15/22 10:50 Blood Culture - Preliminary Blood No Growth after 120 hours 09/16/22 17:00 Gram Stain - Final Foot - Left Tissue Culture - Final Escherichia coli Pantoea agglomerans Methicillin resist S. aureus Group D Enterococcus Strep agalactiae - (group b) Assessment and Plan Assessment: Acute hypoxemic respiratory failure secondary to bilateral pleural effusions right greater than left, secondary to severe aortic stenosis. Severe aortic stenosis. Acute systolic congestive heart failure with ejection fraction of 35-40%. Left lower extremity/foot cellulitis, cultures are revealing Escherichia coli, methicillin-resistant staph aureus, group D enterococcus, and others. The patient continues on Flagyl, vancomycin, and Rocephin. History of marijuana use. Morbid obesity. No primary care provider, no healthcare maintenance follow-up. Plan: Plan dated 09/18/2022. The patient appears to be relatively comfortable. Apparently the patient is going to be treated for his foot infection, and will see cardiology in follow-up next week. No additional recommendations at this time. The patient is encouraged to find a family doctor, and start seeing a doctor on a regular basis. Up to this point, the patient has really not been seeing any physicians. He was on no medication at home. He is encouraged to stop smoking marijuana. Microbiologic studies are thus far negative. Labs, x-rays, and medications are reviewed. Plan dated 09/19/2022. Wound sampling shows evidence of gram-negative bacilli. The bacteria has not been identified as yet. The patient continues on cefepime. He is on room air. Saturations are 92-93%. We will continue to follow and make recommendations along the way. The patient will follow with cardiology. They probably won't want to do anything until there is adequate healing of the left foot wound. Plan dated 09/20/2022. Wound cultures from the left foot are reviewed. The patient continues on cefepime. Medically, he feels better. He is on room air. Is not receiving any IV fluids. We will continue to follow make recommendations along the way. Prognosis is guarded. Plan dated 09/21/2022. The patient appears to be doing better. Antibiotics have been converted from cefepime to vancomycin, Rocephin, and Flagyl. We will continue to follow the patient and make additional recommendations we are warranted. The patient's labs, x-rays, and medications are reviewed. The patient is currently on no supplemental oxygen. We will continue to follow the patient along with you. Time with Patient: Less than 30
[2022-09-21] MEDS: DAPAGLIFLOZIN PROPANEDIOL 10 MG TABLET PO SCH (10:42)
[2022-09-21] MEDS: SPIRONOLACTONE 25 MG TAB PO SCH (10:42)
[2022-09-21] MEDS: FUROSEMIDE 10 MG/ML 4 ML VIAL IV SCH ×2 (10:43→21:03)
--- NOTE | 2022-09-21 11:22 | P.PN ---
Subjective Progress Note Date: 09/21/22 HISTORY OF PRESENT ILLNESS: This is a 67-year-old male that does not follow with a PCP usually goes to urgent care for medical care. Patient denies history of cardiac disease. Annita ent is not on any home medications. We have been asked to evaluate the patient for new heart failure. Patient presented to the hospital due to shortness of breath going on for a week and gradually worsening. He denies having any chest pain. Has been sleeping on 3 pillows. No PND. Patient has had increased edema to the lower extremities and cellulitis was diagnosed of the left lower leg. No fever or chills. No cough. EKG sinus rhythm with left ventricle hypertrophy, right bundle branch block Troponin negative 1. ProBNP 8850, CBC within normal limits. BUN 21, creatinine 0.8. Potassium 4.2. Blood sugar 219. Patient denies known history of diabetes Chest x-ray: Right lower lobe infiltrate and pleural effusion correlate for pneumonia. CTA no pulmonary embolism. Moderate bilateral pleural effusion right greater than left. 09/18 Patient is seen today in follow-up. Yesterday, echocardiogram revealed EF of 35% with pulmonary hypertension severe aortic stenosis. It was discussed with the patient that once his breathing status is improved and foot wound is healed, patient will need to undergo MICHELLE and right and left heart catheterization to assess the status of the coronaries and status of aortic valve for possible aortic valve replacement. He has been on IV Lasix 40 mg every 8 hours and metoprolol 50 mg twice daily (off coreg). Patient has been diuresing well and noted weight loss. Heart rate is running in the 60s and 70s in sinus rhythm Patient is also followed by Dr. Worley and Dr. Skinner regarding the left foot wound on antibiotics status post debridement. Repeat blood work reveals WBC 5.8, hemoglobin 12.7, platelet count 154. Sodium 139, potassium 3.7, BUN 38 and creatinine 1. 09/19 He reports that his breathing continues to feel better. He still has edema in bilateral lower extremities. He does not feel back at his baseline yet. He complains of left foot pain. Creatinine is stable 0.93. 09/20 He is doing well. Reports breathing continues to feel better. Weight down about 4 pounds. Denies any chest pain. Foot pain is tolerable. Creatinine stable at 0.96. ID following for IV antibiotics. 09/21/2022 Patient examined this morning at the bedside. Patient denies chest pain or pressure. He currently denies shortness of breath. Patient is laying flat in bed. He remains on IV Lasix. blood pressures are borderline with systolic blood pressures ranging between 80-90. telemetry reveals sinus mechanism with a heart rate in the 60s. echocardiogram reveals ejection fraction 35-40%. PHYSICAL EXAM: VITAL SIGNS: Reviewed. GENERAL: Well-developed in no acute distress. NECK: Supple. No JVD or thyromegaly LUNGS: Respirations even and unlabored. Lungs essentially clear to auscultation bilaterally. HEART: Regular rate and rhythm. S1 and S2 heard. + systolic murmur. EXTREMITIES: Normal range of motion. No clubbing or cyanosis. Peripheral pulses intact. 2+ bilateral pitting lower extremity edema ASSESSMENT: Shortness of breath Acute heart failure with reduced ejection fraction, EF 35-40% Severe aortic stenosis New diagnosis of diabetes, hemoglobin A1c 9.1 Left foot wound, s/p debridement PLAN: Continue current cardiac medications Continue IV lasix Daily weights, accurate I&O, and monitoring of kidney function Add Aldactone and Farxiga Patient would benefit from JUAN/ARB when blood pressure able to tolerate Patient will require MICHELLE, and L/R heart cath with Dr. Gray. To be scheduled at outpatient visit post discharge. Further recommendations pending patient course Nurse practitioner note has been reviewed by physician. Signing provider agrees with the documented findings, assessment, and plan of care. Objective - Vital Signs Vital signs: Vital Signs Temp 96.5 F L 09/21/22 08:30 Pulse 67 09/21/22 08:30 Resp 16 09/21/22 08:30 BP 92/54 09/21/22 08:30 Pulse Ox 94 L 09/21/22 08:30 FiO2 Intake & Output 09/20/22 09/21/22 09/21/22 18:59 06:59 18:59 Intake Total 770 540 Output Total 600 600 Balance 770 -600 -60 Weight 107.1 kg Intake: Intake, IV Titration 150 Amount Cefepime 2 gm In Sodium 100 Chloride 0.9% 100 ml @ 25 mls/hr IVPB Q8HR [facility] Rx# :[id number] cefTRIAXone 2 gm In 50 Sodium Chloride 0.9% 50 ml @ 100 mls/hr IVPB Q24HR [facility] Rx#:[id number] Oral 620 540 Output: Urine 600 600 Other: Voiding Method Toilet Toilet Toilet # Voids 2 - Labs CBC & Chem 7: 09/21/22 08:29 09/21/22 08:29 Labs: Abnormal Lab Results - Last 24 Hours (Table) 09/20/22 09/20/22 09/20/22 Range/Units 11:42 16:36 20:50 Hct (39.0-53.0) % Plt Count (150-450) k/uL Carbon Dioxide (22-30) mmol/L BUN (9-20) mg/dL Glucose (74-99) mg/dL POC Glucose (mg/dL) 131 H 171 H 151 H (70-110) mg/dL 09/21/22 09/21/22 09/21/22 Range/Units 06:05 08:29 08:29 Hct 38.8 L (39.0-53.0) % Plt Count 145 L (150-450) k/uL Carbon Dioxide 32 H (22-30) mmol/L BUN 35 H (9-20) mg/dL Glucose 136 H (74-99) mg/dL POC Glucose (mg/dL) 131 H (70-110) mg/dL Microbiology - Last 24 Hours (Table) 09/16/22 17:00 Anaerobic Culture - Final Foot - Left Anaerobic Gm Negative Bacilli Anaerobic Gm Negative Bacilli#2 09/15/22 11:05 Blood Culture - Preliminary Blood No Growth after 120 hours 09/15/22 10:50 Blood Culture - Preliminary Blood No Growth after 120 hours 09/16/22 17:00 Gram Stain - Final Foot - Left Tissue Culture - Final Escherichia coli Pantoea agglomerans Methicillin resist S. aureus Group D Enterococcus Strep agalactiae - (group b)
[2022-09-21 11:32] LABS: Glucose,Whole Blood 120 mg/dL (70-110)
[2022-09-21] MEDS: VANCOMYCIN 1,750 MG in SODIUM CHLORIDE 0.9% 500 ML 500 ML IVPB SCH ×2 (11:55→23:39)
--- NOTE | 2022-09-21 12:36 | P.PN ---
Subjective Progress Note Date: 09/21/22 Patient is a 67-year-old male without significant past medical history, currently everyday smoker and daily marijuana use presents to ER with complaints of worsening shortness of breath, exertional dyspnea during the last 2 days. Symptoms have been present for the past 2 weeks patient also felt very weak. He has been having lower extremity worsening swelling. Was also having increased abdominal girth. Patient was using 3 pillows at home but still is becoming short of breath. Denies any complaints of chest pain. No nausea vomiting abdominal pain or diarrhea. Denies recent illnesses. No prior history of coronary artery disease.. Patient was having severe leg swelling and does have a wound over the dorsum of the left foot. No prior history of diabetes. Denies any fever or chills. Chest x-ray showed right lower lobe infiltrate and pleural effusion noted. Correlate for pneumonia. Foot x-ray showed correlate for soft tissue cellulitis EKG showed sinus rhythm. CTA chest showed no evidence for PE. Lungs are clear and free of infiltrate. No pulmonary nodules or masses detected. Moderate bilateral pleural effusions noted right greater than left with bilateral compressive atelectasis. CT of the abdomen pelvis. Correlate for small bowel enteritis. Mild ascites throughout the abdomen. Nonobstructing renal calculus. Laboratory data showed WBC 7.7 hemoglobin 14.9 and platelets 205 D-dimer 0.53 Sodium 138 potassium 4.2 chloride 102 bicarb is 30 BUN 21 creatinine 0.8 and blood sugar is 219 Calcium 8.1 Loramyc not elevated proBNP 88.0 Influenza A, B and COVID-19 PCR and RSV not detected. 09/16/2022 Patient is currently lying in bed. Awake alert and oriented x3. Slightly better. Left foot wound status post debridement by vascular surgery and wound culture was sent. Patient is being continued on vancomycin. Otherwise patient is on Lasix 40 mg every 12. Cardiology is on board. 2D echocardiogram showed LV systolic function 35% with reduced excursion of the aortic valve leaflets. Calcific aortic valve with peak gradient of greater than 80 mmHg and mean gradient greater than 50 mmHg along with moderate aortic regurgitation in the setting of severely reduced LV function. Severe aortic stenosis. Laboratory data showed sodium 141 potassium 3.8 chloride 102 bicarb is 30 BUN 21 creatinine 0.91 blood sugar is 166 and A1c 9.1 calcium 9.0 LDL 90.5 and TSH 2.6 within normal limits 09/17/2022 Patient is currently resting in bed. Awake alert and oriented 3. Still having bilateral lower extremity swelling. Breathing status is improving. Continue with Lasix IV 40 mg twice daily. Pulmonary was consulted due to bilateral pleural effusion. Otherwise patient is on antibiotics for diabetic foot ulcer. Chest pain. No nausea vomiting abdominal pain or diarrhea. Patient feels better. No fever no chills. 09/18/2022 This is a pleasant 67 years old male who does not follow up outpatient presents with left wound and cellulitis. he Is a status post debridement by surgery team His currently been covered with IV cefepime, blood culture is growing gram- negative bacilli. His hemoglobin A1c is elevated 9.1%, patient has diabetes Also patient with severe aortic valve stenosis and evidence of new onset CHF with ejection fraction 35-40% Patient currently on IV Lasix 40 mg every 8 hours patient will require aortic valve treatment and cardiology on the case 09/19/2022 Patient states that his breathing is okay with little cough no chest pain His right foot healing slowly. He still complains from pain in his right foot. Cultures showed gram-negative bacilli that is currently on cefepime Patient informed about his high hemoglobin A1c, he confirms he is diabetic but is not on medications His creatinine normal 0.5 therefore, to start him on metformin 500 mg as well as Tylenol No. 3 09/20/2022 Patient is currently lying in the bed. Awake alert and oriented x3. Still having bilateral lower extremity swelling. No complaints of chest pain or worsening shortness of breath. Currently on room air. Continued on wound care. Wound culture showed gram-negative bacilli. Antibiotics changed to ceftriaxone Flagyl and vancomycin.. ID is on board. Otherwise patient is on IV Lasix and monitor renal function closely. Blood sugar is better controlled. 09/21/2022 Patient is currently sitting up in bed. No acute events overnight. Has a depressed flat affect. Feels overwhelmed due to new diagnoses this hospital stay. Continues with lower extremity edema, and continues on IV lasix 40 mg Q12. Feels his urine output has been decreasing doesn't feel like the lasix is doing much. Bladder scan requested. Has 1.5L of urine output documented in the last 24 hours. Remains on IV vancomycin and IV ceftriaxone. Wound culture has finalized showing E. Coli, Pantoea agglomerans, MRSA, Group D enterococcus and Strep Group B. Labs remain stable. Blood glucose in the 120s. Blood pressure remains in the 90s systolic. Review of Systems Constitutional: Denied any fatigue denied any fever. Cardio vascular: denied any chest pain, palpitations Gastrointestinal: denied any nausea, vomiting, diarrhea Pulmonary: Denied any shortness of breath cough Neurologic denied any new focal deficits All inpatient medications were reviewed and appropriate changes in these medications as dictated in the interval history and assessment and plan. PHYSICAL EXAMINATION: GENERAL: The patient is alert and oriented x3, not in any acute distress. Well developed, well nourished. HEENT: Pupils are round and equally reacting to light. EOMI. No scleral icterus. No conjunctival pallor. Normocephalic, atraumatic. No pharyngeal erythema. No thyromegaly. CARDIOVASCULAR: S1 and S2 present. No murmurs, rubs, or gallops. PULMONARY: Chest is clear to auscultation, no wheezing or crackles. ABDOMEN: Soft, nontender, nondistended, normoactive bowel sounds. No palpable organomegaly. MUSCULOSKELETAL: No joint swelling or deformity. EXTREMITIES: No cyanosis, clubbing, Continues with bilateral lower extremity edema NEUROLOGICAL: Gross neurological examination did not reveal any focal deficits. SKIN: No rashes. Dressing intact to the let foot Assessment and Plan Assessment Acute CHF with severely reduced ejection fraction 35%. New onset. Severe aortic stenosis. Acute hypoxic respiratory failure secondary to above Bilateral pleural effusion and mild ascites likely due to CHF. Left diabetic foot wound on the dorsal surface with surrounding cellulitis s/p surgical debridement Diabetes type 2 new diagnosis A1c 9.1 Morbid obesity Ongoing nicotine addiction and marijuana use GI prophylaxis DVT prophylaxis Full Code Plan Continue IV lasix strict intake and output monitoring and check bladder scan for retention Continue IV antibiotics per ID Local wound care in place Patient with new onset diabetes discussed referral to outpatient diabetic education on discharge Blood pressure is still marginal and is being continued on Lasix 40 mg twice daily. Patient will need outpatient follow-up with cardiology for MICHELLE and also cardiac catheterization once medically stable. Patient will likely require IV antibiotics on discharge and will need PICC line placement prior The impression and plan of care has been dictated by Pallavi Mathew Nurse Practitioner as directed. Dr. Michael MD I have performed a history and physical examination and medical decision making of this patient, discussed the same with the dictator, and agree with the dictators assessment and plan as written, documented as a scribe. Based on total visit time, I have performed more than 50% of this visit. Objective - Vital Signs Vital signs: Vital Signs Temp 97.5 F L 09/21/22 11:52 Pulse 64 09/21/22 11:52 Resp 16 09/21/22 11:52 BP 99/62 09/21/22 11:52 Pulse Ox 99 09/21/22 11:52 FiO2 Intake & Output 09/20/22 09/21/22 09/21/22 18:59 06:59 18:59 Intake Total 770 540 Output Total 600 900 Balance 770 -600 -360 Weight 107.1 kg Intake: Intake, IV Titration 150 Amount Cefepime 2 gm In Sodium 100 Chloride 0.9% 100 ml @ 25 mls/hr IVPB Q8HR [facility] Rx# :[id number] cefTRIAXone 2 gm In 50 Sodium Chloride 0.9% 50 ml @ 100 mls/hr IVPB Q24HR [facility] Rx#:[id number] Oral 620 540 Output: Urine 600 900 Other: Voiding Method Toilet Toilet Toilet # Voids 2 - Labs CBC & Chem 7: 09/21/22 08:29 09/21/22 08:29 Labs: Abnormal Lab Results - Last 24 Hours (Table) 09/20/22 09/20/22 09/21/22 Range/Units 16:36 20:50 06:05 Hct (39.0-53.0) % Plt Count (150-450) k/uL Carbon Dioxide (22-30) mmol/L BUN (9-20) mg/dL Glucose (74-99) mg/dL POC Glucose (mg/dL) 171 H 151 H 131 H (70-110) mg/dL 09/21/22 09/21/22 09/21/22 Range/Units 08:29 08:29 11:24 Hct 38.8 L (39.0-53.0) % Plt Count 145 L (150-450) k/uL Carbon Dioxide 32 H (22-30) mmol/L BUN 35 H (9-20) mg/dL Glucose 136 H (74-99) mg/dL POC Glucose (mg/dL) 120 H (70-110) mg/dL Microbiology - Last 24 Hours (Table) 09/16/22 17:00 Anaerobic Culture - Final Foot - Left Anaerobic Gm Negative Bacilli Anaerobic Gm Negative Bacilli#2 09/15/22 11:05 Blood Culture - Preliminary Blood No Growth after 120 hours 09/15/22 10:50 Blood Culture - Preliminary Blood No Growth after 120 hours 09/16/22 17:00 Gram Stain - Final Foot - Left Tissue Culture - Final Escherichia coli Pantoea agglomerans Methicillin resist S. aureus Group D Enterococcus Strep agalactiae - (group b) Assessment and Plan Time with Patient: Less than 30
[2022-09-21 16:27] LABS: Glucose,Whole Blood 143 mg/dL (70-110)
--- NOTE | 2022-09-21 17:01 | P.PN ---
Progress Note - Text 67-year-old diabetic male patient has history of CHF and had a wound left foot dorsum suspected at the base of the third fourth and fifth toe patient had a full-thickness injury in which we did the debridement treating with local wound care. We have using Santyl cream for the wound today we have changed the dressing there is some granulation tissue there is some also noted some mild redness on the dorsal aspect of the foot patient IV antibiotic continue with IV antibiotic and local wound care
[2022-09-21 20:23] LABS: Glucose,Whole Blood 126 mg/dL (70-110)
[2022-09-21] MEDS: ATORVASTATIN 20 MG TAB PO SCH (21:02)
--- NOTE | 2022-09-21 21:21 | P.PN ---
Subjective Progress Note Date: 09/21/22 Principal diagnosis: Left foot wound and cellulitis Patient is a 67-year-old male who has not seen a physician in many years presented to hospital with multiple symptoms including increasing shortness of breath bilateral worsening swelling and did have a nonhealing wound on the dorsum aspect of his left foot patient has been evaluated by vascular surgery and did have a bedside debridement on 09/16/2022 and cultures On today's evaluation and that is 09/21/2022, the patient remains to be afebrile, the patient is breathing comfortably on room air, the patient denies any chest pain, the patient did have occasional dry cough no nausea no vomiting no abdominal pain no diarrhea or any worsening pain to the left foot Objective - Vital Signs Vital signs: Vital Signs Temp 97.5 F L 09/21/22 11:52 Pulse 64 09/21/22 11:52 Resp 16 09/21/22 11:52 BP 99/62 09/21/22 11:52 Pulse Ox 99 09/21/22 11:52 FiO2 Intake & Output 09/20/22 09/21/22 09/21/22 18:59 06:59 18:59 Intake Total 770 540 Output Total 600 900 Balance 770 -600 -360 Weight 107.1 kg Intake: Intake, IV Titration 150 Amount Cefepime 2 gm In Sodium 100 Chloride 0.9% 100 ml @ 25 mls/hr IVPB Q8HR [facility] Rx# :[id number] cefTRIAXone 2 gm In 50 Sodium Chloride 0.9% 50 ml @ 100 mls/hr IVPB Q24HR [facility] Rx#:[id number] Oral 620 540 Output: Urine 600 900 Other: Voiding Method Toilet Toilet Toilet # Voids 2 - Exam GENERAL DESCRIPTION: An elderly male up in the chair in no distress RESPIRATORY SYSTEM: Unlabored breathing , decreased breath sounds at bases HEART: S1 S2 regular rate and rhythm , ABDOMEN: Soft , no tenderness EXTREMITIES: Left foot dorsum wound currently dressed no drainage on dressing - Labs CBC & Chem 7: 09/21/22 08:29 09/21/22 08:29 Labs: Abnormal Lab Results - Last 24 Hours (Table) 09/20/22 09/20/22 09/21/22 Range/Units 16:36 20:50 06:05 Hct (39.0-53.0) % Plt Count (150-450) k/uL Carbon Dioxide (22-30) mmol/L BUN (9-20) mg/dL Glucose (74-99) mg/dL POC Glucose (mg/dL) 171 H 151 H 131 H (70-110) mg/dL 09/21/22 09/21/22 09/21/22 Range/Units 08:29 08:29 11:24 Hct 38.8 L (39.0-53.0) % Plt Count 145 L (150-450) k/uL Carbon Dioxide 32 H (22-30) mmol/L BUN 35 H (9-20) mg/dL Glucose 136 H (74-99) mg/dL POC Glucose (mg/dL) 120 H (70-110) mg/dL Microbiology - Last 24 Hours (Table) 09/15/22 11:05 Blood Culture - Final Blood No Growth after 144 hours 09/15/22 10:50 Blood Culture - Final Blood No Growth after 144 hours 09/16/22 17:00 Anaerobic Culture - Final Foot - Left Anaerobic Gm Negative Bacilli Anaerobic Gm Negative Bacilli#2 Assessment and Plan (1) Cellulitis Current Visit: Yes Status: Acute Code(s): L03.90 - CELLULITIS, UNSPECIFIED SNOMED Code(s): 242099727 (2) Wound of left foot Current Visit: Yes Status: Acute Code(s): S91.302A - UNSPECIFIED OPEN WOUND, LEFT FOOT, INITIAL ENCOUNTER SNOMED Code(s): 834321553 Plan: 1patient with a left lower extremity wound possibly started as a blister as the patient did have evidence of significant swelling to bilateral lower extremity and fluid overload and is being worked up for cardiac etiology under care of cardiology patient did have a necrotic base for the patient did have debridement done by vascular surgeon and deep cultures are currently growing MRSA, E. coli enterococcus and anaerobes 2-patient currently being treated with vancomycin pharmacy to dose along with Rocephin and Flagyl , plan is for IV antibiotics on discharge for which the PICC line will be placed discussed with the admitting team local care to continue per surgery
[2022-09-22] MEDS: Acetaminophen-Codeine 300-30mg TAB PO PRN ×2 (06:49→17:16)
[2022-09-22] MEDS: metFORMIN 500 MG TAB PO SCH ×2 (06:50→17:16)
[2022-09-22 06:53] LABS: Glucose,Whole Blood 127 mg/dL (70-110)
[2022-09-22 08:51] LABS: African American GFR (CKD) >90 (>60 ml/min/1.73 sqM); Anion Gap 11 mmol/L; Blood Urea Nitrogen 31 mg/dL (9-20); Calcium 8.8 mg/dL (8.4-10.2); Carbon Dioxide 31 mmol/L (22-30); Chloride 99 mmol/L (98-107); Glucose 141 mg/dL (74-99); Non-African American GFR(CKD) 85 (>60 ml/min/1.73 sqM); Potassium 3.6 mmol/L (3.5-5.1); Sodium 141 mmol/L (137-145)
[2022-09-22] MEDS: FUROSEMIDE 10 MG/ML 4 ML VIAL IV SCH ×2 (09:36→20:56)
[2022-09-22] MEDS: HEPARIN SODIUM,PORCINE/PF 5,000 UNIT/0.5 ML SYRINGE SQ SCH ×2 (09:36→17:16)
[2022-09-22] MEDS: DAPAGLIFLOZIN PROPANEDIOL 10 MG TABLET PO SCH (09:37)
[2022-09-22] MEDS: metroNIDAZOLE 500 MG TAB PO SCH ×3 (09:37→20:56)
[2022-09-22] MEDS: METOPROLOL TARTRATE 50 MG TAB PO SCH ×2 (09:37→20:56)
[2022-09-22] MEDS: ASPIRIN 81 MG PO SCH (09:37)
[2022-09-22] MEDS: FAMOTIDINE 20 MG TAB PO SCH ×2 (09:37→20:58)
[2022-09-22] MEDS: SPIRONOLACTONE 25 MG TAB PO SCH (09:37)
[2022-09-22] MEDS: COLLAGENASE 250 UNIT/GM OINTMENT 30 GM TUBE TOPICAL SCH (09:38)
--- NOTE | 2022-09-22 10:16 | P.PN ---
Subjective Progress Note Date: 09/22/22 This is a very pleasant 67-year-old male patient with no past significant medical history. He does not have a PCP. On no home prescribed medications. Over the past 2 weeks she's been having increasing shortness of breath and dyspnea on exertion. He's been having some dizzy spells as well. He also has been having issues with his left foot appearing infected. He presented here to the emergency room on 09/15/2022 for the same. Chest x-ray reveals a right lower lobe infiltrate/pleural effusion. X-ray of the left foot revealed possible soft tissue cellulitis. CT angiogram ruled out pulmonary embolism. Lungs were clear of infiltrate. No pulmonary nodules or masses detected. There is a moderate bilateral pleural effusions noted right greater than left. Basilar compressive atelectasis. Computed tomography scan of the abdomen and pelvis revealed possible small bowel enteritis. Moderate bilateral pleural effusions with basilar compressive atelectasis. Mild ascites throughout the abdomen. Nonobstructing left renal calculus. Echocardiogram revealed reduced left ventricular systolic function with ejection fraction of 35%. Calcific aortic valve with peak gradient of greater than 80 mmHg and mean gradient of greater than 50 mmHg along with moderate aortic regurgitation. Severe aortic stenosis. He did undergo debridement of the wound of the left foot. He is seen today in consultation on the selective care unit. Currently sitting up in a chair at the bedside. Awake and alert in no acute distress. He is maintaining O2 saturations in the 90s on 2 L/m per nasal cannula. He denies any cigarette smoking. He admits to occasional marijuana use. Not on home oxygen. Not on h ome inhalers. White count 6.8. Hemoglobin 13.6. Platelets 181. Sodium 141. Potassium 3.8. Bicarb 30. BUN 21. Creatinine 0.91. Glucose 215. Influenza screen negative. RSV screen negative. COVID-19 screen negative. ProBNP 8850. Troponin negative 1. AST 17. ALT 18. Currently he denies any worsening shortness of breath, cough or congestion. He is dyspneic with conversation. Dyspneic with exertion. No hemoptysis. Blood cultures are revealing no growth. Left foot cultures pending. He's been initiated on vancomycin per ID services. He is initiated on IV diuretics. Heparin for DVT prophylaxis. Progress note dated 09/18/2022. 67-year-old male seen again in room 359. The patient was seen yesterday in consultation with shortness of breath, CHF. Currently, he is doing better. 2 L of oxygen. He's not receiving any IV fluids. He remains on vancomycin for a left foot infection. White count 5.8, hemoglobin 12.7, hematocrit 39.3, and platelet count normal. Sodium 139, potassium 3.7, chlorides 101, CO2 32, BUN 38, and creatinine 1.04. Progress note dated 09/19/2022. 67-year-old male who was seen 2 days ago in consultation. The patient is seen again today in room 359. Currently he is on room air oxygen. Saturations are 92%. He's not receiving any IV fluids. Wound cultures are showing evidence of gram-negative bacilli. He remains on cefepime. Clinically, the patient's doing well. The patient does have a history of symptomatic aortic stenosis. The pat ient may eventually need either valve surgery, or transcatheter aortic valve replacement. Sodium 139, potassium 3.6, chlorides 101, CO2 32, BUN 41, and creatinine 0.93. Progress note dated 09/20/2022. 67-year-old male seen in room 359. Currently, he's on room air. He's not receiving any IV fluids. The patient is feeling better. He continues on cefepime. Wound cultures from the left foot grow a number different organisms including Escherichia coli, methicillin-resistant staph aureus, and group D enterococcus, as well as others. Sodium 138, potassium 3.6, chlorides 100, CO2 33, BUN 40, creatinine 0.96. Calcium is 8.7. Progress note dated 09/21/2022. 67-year-old male seen in room 359. He's currently on room air. The patient is not receiving any IV fluids. His antibiotics have been changed to vancomycin, Rocephin, and Flagyl, as per infectious diseases. The patient is feeling well. White count 4.7, hemoglobin 13, hematocrit 38.8, and platelet count 145,000. Sodium 140, potassium 3.5, chlorides 101, CO2 32, BUN 35, creatinine 0.86. On today's evaluation of 2022, the patient is on room air oxygen. No specific complaints. Room air oxygen for now. The patient is awaiting a PICC line insertion. Meanwhile, he remains on Lasix 40 mg IV every 12 hours. The patient is a negative fluid balance. Remains on accommodation of Rocephin and vancomycin. BUN is at 31 with a creatinine of 0.5. Sodium is at 141. No other significant issues otherwise for now. The ones culture was positive for polymicrobial growth including E. coli, MRSA, group D enterococcus and strep group B. Hemodynamically stable at this point. Objective - Vital Signs Vital signs: Vital Signs Temp 97.3 F L 09/22/22 08:00 Pulse 69 09/22/22 08:00 Resp 16 09/22/22 08:00 BP 115/65 09/22/22 08:00 Pulse Ox 95 09/22/22 08:00 FiO2 Intake & Output 09/21/22 09/22/22 09/22/22 18:59 06:59 18:59 Intake Total 540 368 Output Total 900 Balance -360 368 Weight 106.2 kg Intake: IV 10 Invasive Line 2 10 Oral 540 358 Output: Urine 900 Other: Voiding Method Toilet Toilet Urinal Urinal - Exam No acute distress, oriented 3. No overt respiratory distress. Currently on room air. HEENT examination is grossly unremarkable. Neck supple. Full range of motion. No adenopathy thyromegaly or neck vein distention. Cardiovascular examination reveals regular rhythm rate. S1-S2 normal. No S3 or S4. Soft systolic murmurs noted. Heart sounds are distant. Lungs reveal scattered bilateral and bibasilar crackles. Diffuse rhonchi are noted. Breath sounds equal. Abdomen soft bowel sounds are heard. No masses or tenderness. Extremities are intact. No cyanosis clubbing, and there is extensive edema lower extremities bilaterally Left foot is wrapped. Skin is without rash or lesion. Neurologic examination is brief but nonfocal. - Labs CBC & Chem 7: 09/21/22 08:29 09/22/22 07:57 Labs: Abnormal Lab Results - Last 24 Hours (Table) 09/21/22 09/21/22 09/21/22 Range/Units 11:24 16:26 20:19 Carbon Dioxide (22-30) mmol/L BUN (9-20) mg/dL Glucose (74-99) mg/dL POC Glucose (mg/dL) 120 H 143 H 126 H (70-110) mg/dL 09/22/22 09/22/22 Range/Units 06:39 07:57 Carbon Dioxide 31 H (22-30) mmol/L BUN 31 H (9-20) mg/dL Glucose 141 H (74-99) mg/dL POC Glucose (mg/dL) 127 H (70-110) mg/dL Microbiology - Last 24 Hours (Table) 09/15/22 11:05 Blood Culture - Final Blood No Growth after 144 hours 09/15/22 10:50 Blood Culture - Final Blood No Growth after 144 hours Assessment and Plan Plan: Acute hypoxemic respiratory failure secondary to bilateral pleural effusions right greater than left, secondary to severe aortic stenosis. The patient is currently back on room air oxygen. No significant respiratory distress for now. Severe aortic stenosis. The patient has evidence of severe aortic stenosis with a peak gradient of 83 mmHg and [id number] aortic regurgitation. There is also reduced LV systolic function with an ejection fraction of 35% along with severe aortic stenosis. Acute systolic congestive heart failure with ejection fraction of 35-40%. Left lower extremity/foot cellulitis, cultures are revealing Escherichia coli, methicillin-resistant staph aureus, group D enterococcus, and others. The grisel ent continues on Flagyl, vancomycin, and Rocephin. History of marijuana use. Morbid obesity. Plan Continue diuretics Monitor fluid balance and electrolytes PICC line insertion for ongoing antibiotic treatment regarding left lower extremity infection and infectious diseases on the case. The plan is to continue vancomycin Rocephin and Flagyl for now and the PICC line will be needed . Overall pulmonary status is stable and pulmonary services will sign off.
--- NOTE | 2022-09-22 10:32 | P.PN ---
Subjective HISTORY OF PRESENT ILLNESS: This is a 67-year-old male that does not follow with a PCP usually goes to urgent care for medical care. Patient denies history of cardiac disease. Patient is not on any home medications. We have been asked to evaluate the patient for new heart failure. Patient presented to the hospital due to shortness of breath going on for a week and gradually worsening. He denies having any chest pain. Has been sleeping on 3 pillows. No PND. Patient has had increased edema to the lower extremities and cellulitis was diagnosed of the left lower leg. No fever or chills. No cough. EKG sinus rhythm with left ventricle hypertrophy, right bundle branch block Troponin negative 1. ProBNP 8850, CBC within normal limits. BUN 21, creatinine 0.8. Potassium 4.2. Blood sugar 219. Patient denies known history of diabetes Chest x-ray: Right lower lobe infiltrate and pleural effusion correlate for pneumonia. CTA no pulmonary embolism. Moderate bilateral pleural effusion right greater than left. 09/18 Patient is seen today in follow-up. Yesterday, echocardiogram revealed EF of 35% with pulmonary hypertension severe aortic stenosis. It was discussed with the patient that once his breathing status is improved and foot wound is healed, patient will need to undergo MICHELLE and right and left heart catheterization to assess the status of the coronaries and status of aortic valve for possible a ortic valve replacement. He has been on IV Lasix 40 mg every 8 hours and metoprolol 50 mg twice daily (off coreg). Patient has been diuresing well and noted weight loss. Heart rate is running in the 60s and 70s in sinus rhythm Patient is also followed by Dr. Worley and Dr. Skinner regarding the left foot wound on antibiotics status post debridement. Repeat blood work reveals WBC 5.8, hemoglobin 12.7, platelet count 154. Sodium 139, potassium 3.7, BUN 38 and creatinine 1. 09/19 He reports that his breathing continues to feel better. He still has edema in bilateral lower extremities. He does not feel back at his baseline yet. He complains of left foot pain. Creatinine is stable 0.93. 09/20 He is doing well. Reports breathing continues to feel better. Weight down about 4 pounds. Denies any chest pain. Foot pain is tolerable. Creatinine stable at 0.96. ID following for IV antibiotics. 09/21/2022 Patient examined this morning at the bedside. Patient denies chest pain or pr essure. He currently denies shortness of breath. Patient is laying flat in bed. He remains on IV Lasix. blood pressures are borderline with systolic blood pressures ranging between 80-90. telemetry reveals sinus mechanism with a heart rate in the 60s. echocardiogram reveals ejection fraction 35-40%. 09/22/2022 Patient examined this morning. Patient is sitting up in the chair. Patient appears to be improving clinically. He currently denies any shortness of breath. He denies any chest pain or pressure. Telemetry reveals sinus mechanism. He remains on IV Lasix 40 mg every 12 hours. He continues to have lower extremity edema. Creatinine 0.93. PHYSICAL EXAM: VITAL SIGNS: Reviewed. GENERAL: Well-developed in no acute distress. NECK: Supple. No JVD or thyromegaly LUNGS: Respirations even and unlabored. Lungs essentially clear to auscultation bilaterally. HEART: Regular rate and rhythm. S1 and S2 heard. + systolic murmur. EXTREMITIES: Normal range of motion. No clubbing or cyanosis. Peripheral pulses intact. 2+ bilateral pitting lower extremity edema ASSESSMENT: Shortness of breath Acute heart failure with reduced ejection fraction, EF 35-40% Severe aortic stenosis New diagnosis of diabetes, hemoglobin A1c 9.1 Left foot wound, s/p debridement PLAN: Continue current cardiac medications Continue IV lasix Daily weights, accurate I&O, and monitoring of kidney function Patient would benefit from JUAN/ARB when blood pressure able to tolerate Patient will require MICHELLE, and L/R heart cath with Dr. Gray. To be scheduled at outpatient visit post discharge. Further recommendations pending patient course Nurse practitioner note has been reviewed by physician. Signing provider agrees with the documented findings, assessment, and plan of care. Objective - Vital Signs Vital signs: Vital Signs Temp 97.3 F L 09/22/22 08:00 Pulse 69 09/22/22 08:00 Resp 16 09/22/22 08:00 BP 115/65 09/22/22 08:00 Pulse Ox 95 09/22/22 08:00 FiO2 Intake & Output 09/21/22 09/22/22 09/22/22 18:59 06:59 18:59 Intake Total 540 368 Output Total 900 Balance -360 368 Weight 106.2 kg Intake: IV 10 Invasive Line 2 10 Oral 540 358 Output: Urine 900 Other: Voiding Method Toilet Toilet Urinal Urinal - Labs CBC & Chem 7: 09/21/22 08:29 09/22/22 07:57 Labs: Abnormal Lab Results - Last 24 Hours (Table) 09/21/22 09/21/22 09/21/22 Range/Units 11:24 16:26 20:19 Carbon Dioxide (22-30) mmol/L BUN (9-20) mg/dL Glucose (74-99) mg/dL POC Glucose (mg/dL) 120 H 143 H 126 H (70-110) mg/dL 09/22/22 09/22/22 Range/Units 06:39 07:57 Carbon Dioxide 31 H (22-30) mmol/L BUN 31 H (9-20) mg/dL Glucose 141 H (74-99) mg/dL POC Glucose (mg/dL) 127 H (70-110) mg/dL Microbiology - Last 24 Hours (Table) 09/15/22 11:05 Blood Culture - Final Blood No Growth after 144 hours 09/15/22 10:50 Blood Culture - Final Blood No Growth after 144 hours
[2022-09-22] MEDS ORDERED: LIDOCAINE 1% INJ 10MG/ML (5 ML VIAL-PF) SQ ONE ×2 (11:24→11:40)
[2022-09-22 12:09] LABS: Glucose,Whole Blood 104 mg/dL (70-110)
[2022-09-22] MEDS: VANCOMYCIN 1,750 MG in SODIUM CHLORIDE 0.9% 500 ML 500 ML IVPB SCH (12:17)
--- NOTE | 2022-09-22 13:24 | IR ---
PROCEDURE: Left upper extremity PICC placement DATE: 09/22/2022 RECEPTIONIST: Dr. Quezada CLINICAL HISTORY: Long-term IV access for medications. COMPARISON: None ANESTHESIA: 1% local lidocaine PROCEDURE: The procedure, risks, and alternatives were discussed and all questions were answered. Written inform ed consent obtained. A complicating paperwork and verified for accuracy. Directed history and physica l exam performed prior to the procedure. Medication reconciliation performed by nursing personnel. Pr ocedure was performed using a cap, sterile gloves, hand hygiene, and chlorhexidine for cutaneous anti sepsis. A critical timeout was performed with assisting personnel just prior to the procedure with th e patient's identity confirmed using 2 identifiers, confirming site and side. Limited grayscale ultrasound of the left upper extremity demonstrates a patent compressible basilic v ein. The basilic vein measures approximately 4.5 mm. The catheter to vein ratio is approximately 33%. 1% lidocaine was administered to the skin and deeper soft tissues. A micropuncture needle was advanc ed under continuous ultrasound guidance into the vein. A wire was advanced to the needle and the need le was removed. A small skin incision was made. A peel-away sheath was placed. A single-lumen power P ICC was cut to a length of 51 cm and advanced to the peel-away and the peel-away sheath was removed. Fluoroscopy demonstrates the final catheter position to be located within the upper right atrium. The lumen flushed and aspirated with ease. The catheter was secured to the patient's skin using an adhes phuong skin anchor. A sterile dressing was placed per protocol. The patient tolerated the procedure well and there were no immediate complications. Blood loss was mi nimal. IMPRESSION: Successful, uncomplicated left upper cavity PICC placement.
--- NOTE | 2022-09-22 14:08 | P.PN ---
Subjective Progress Note Date: 09/22/22 Patient is a 67-year-old male without significant past medical history, currently everyday smoker and daily marijuana use presents to ER with complaints of worsening shortness of breath, exertional dyspnea during the last 2 days. Symptoms have been present for the past 2 weeks patient also felt very weak. He has been having lower extremity worsening swelling. Was also having increased abdominal girth. Patient was using 3 pillows at home but still is becoming short of breath. Denies any complaints of chest pain. No nausea vomiting abdominal pain or diarrhea. Denies recent illnesses. No prior history of coronary artery disease.. Patient was having severe leg swelling and does have a wound over the dorsum of the left foot. No prior history of diabetes. Denies any fever or chills. Chest x-ray showed right lower lobe infiltrate and pleural effusion noted. Correlate for pneumonia. Foot x-ray showed correlate for soft tissue cellulitis EKG showed sinus rhythm. CTA chest showed no evidence for PE. Lungs are clear and free of infiltrate. No pulmonary nodules or masses detected. Moderate bilateral pleural effusions noted right greater than left with bilateral compressive atelectasis. CT of the abdomen pelvis. Correlate for small bowel enteritis. Mild ascites throughout the abdomen. Nonobstructing renal calculus. Laboratory data showed WBC 7.7 hemoglobin 14.9 and platelets 205 D-dimer 0.53 Sodium 138 potassium 4.2 chloride 102 bicarb is 30 BUN 21 creatinine 0.8 and blood sugar is 219 Calcium 8.1 Loramyc not elevated proBNP 88.0 Influenza A, B and COVID-19 PCR and RSV not detected. 09/16/2022 Patient is currently lying in bed. Awake alert and oriented x3. Slightly better. Left foot wound status post debridement by vascular surgery and wound culture was sent. Patient is being continued on vancomycin. Otherwise patient is on Lasix 40 mg every 12. Cardiology is on board. 2D echocardiogram showed LV systolic function 35% with reduced excursion of the aortic valve leaflets. Calcific aortic valve with peak gradient of greater than 80 mmHg and mean gradient greater than 50 mmHg along with moderate aortic regurgitation in the setting of severely reduced LV function. Severe aortic stenosis. Laboratory data showed sodium 141 potassium 3.8 chloride 102 bicarb is 30 BUN 21 creatinine 0.91 blood sugar is 166 and A1c 9.1 calcium 9.0 LDL 90.5 and TSH 2.6 within normal limits 09/17/2022 Patient is currently resting in bed. Awake alert and oriented 3. Still having bilateral lower extremity swelling. Breathing status is improving. Continue with Lasix IV 40 mg twice daily. Pulmonary was consulted due to bilateral pleural effusion. Otherwise patient is on antibiotics for diabetic foot ulcer. Chest pain. No nausea vomiting abdominal pain or diarrhea. Patient feels better. No fever no chills. 09/18/2022 This is a pleasant 67 years old male who does not follow up outpatient presents with left wound and cellulitis. he Is a status post debridement by surgery team His currently been covered with IV cefepime, blood culture is growing gram- negative bacilli. His hemoglobin A1c is elevated 9.1%, patient has diabetes Also patient with severe aortic valve stenosis and evidence of new onset CHF with ejection fraction 35-40% Patient currently on IV Lasix 40 mg every 8 hours patient will require aortic valve treatment and cardiology on the case 09/19/2022 Patient states that his breathing is okay with little cough no chest pain His right foot healing slowly. He still complains from pain in his right foot. Cultures showed gram-negative bacilli that is currently on cefepime Patient informed about his high hemoglobin A1c, he confirms he is diabetic but is not on medications His creatinine normal 0.5 therefore, to start him on metformin 500 mg as well as Tylenol No. 3 09/20/2022 Patient is currently lying in the bed. Awake alert and oriented x3. Still having bilateral lower extremity swelling. No complaints of chest pain or worsening shortness of breath. Currently on room air. Continued on wound care. Wound culture showed gram-negative bacilli. Antibiotics changed to ceftriaxone Flagyl and vancomycin.. ID is on board. Otherwise patient is on IV Lasix and monitor renal function closely. Blood sugar is better controlled. 09/21/2022 Patient is currently sitting up in bed. No acute events overnight. Has a depressed flat affect. Feels overwhelmed due to new diagnoses this hospital stay. Continues with lower extremity edema, and continues on IV lasix 40 mg Q12. Feels his urine output has been decreasing doesn't feel like the lasix is doing much. Bladder scan requested. Has 1.5L of urine output documented in the last 24 hours. Remains on IV vancomycin and IV ceftriaxone. Wound culture has finalized showing E. Coli, Pantoea agglomerans, MRSA, Group D enterococcus and Strep Group B. Labs remain stable. Blood glucose in the 120s. Blood pressure remains in the 90s systolic. 09/22/2022 Patient is evaluated on the stepdown unit today. Sitting up in chair. Patient continues on IV lasix Q12 with documented output of 368 mls and has been using urinal/toilet also. He does report increased urination today. Patient had PICC line placed today and will require IV antibiotics on discharge. Continues on IV ceftriaxone and IV vancomycin, as well as oral flagyl TID. Kidney function remains stable. Blood glucose in the 100s. Patient is encouraged to elevate lower extremity while sitting. Review of Systems Constitutional: Denied any fatigue denied any fever. Cardio vascular: denied any chest pain, palpitations Gastrointestinal: denied any nausea, vomiting, diarrhea Pulmonary: Denied any shortness of breath cough Neurologic denied any new focal deficits All inpatient medications were reviewed and appropriate changes in these medications as dictated in the interval history and assessment and plan. PHYSICAL EXAMINATION: GENERAL: The patient is alert and oriented x3, not in any acute distress. Well developed, well nourished. HEENT: Pupils are round and equally reacting to light. EOMI. No scleral icterus. No conjunctival pallor. Normocephalic, atraumatic. No pharyngeal erythema. No thyromegaly. CARDIOVASCULAR: S1 and S2 present. No murmurs, rubs, or gallops. PULMONARY: Chest is clear to auscultation, no wheezing or crackles. ABDOMEN: Soft, nontender, nondistended, normoactive bowel sounds. No palpable organomegaly. MUSCULOSKELETAL: No joint swelling or deformity. EXTREMITIES: No cyanosis, clubbing, Continues with bilateral lower extremity edema NEUROLOGICAL: Gross neurological examination did not reveal any focal deficits. SKIN: No rashes. Dressing intact to the let foot Assessment and Plan Assessment Acute CHF with severely reduced ejection fraction 35%. New onset. Severe aortic stenosis. Acute hypoxic respiratory failure secondary to above on room air now. Bilateral pleural effusion and mild ascites likely due to CHF. Left diabetic foot wound on the dorsal surface with surrounding cellulitis s/p surgical debridement Diabetes type 2 new diagnosis A1c 9.1 Morbid obesity Ongoing nicotine addiction and marijuana use GI prophylaxis DVT prophylaxis Full Code Plan Continue IV lasix strict intake and output monitoring Continue IV antibiotics per ID Local wound care in place Patient with new onset diabetes discussed referral to outpatient diabetic education on discharge Continues on IV lasix 40 Q12. Patient will need outpatient follow-up with cardiology for MICHELLE and also cardiac catheterization once medically stable. Patient will likely require IV antibiotics on discharge, PICC line placed today. The impression and plan of care has been dictated by Pallavi Mathew, Nurse Practitioner as directed. Dr. Michael MD I have performed a history and physical examination and medical decision making of this patient, discussed the same with the dictator, and agree with the dictators assessment and plan as written, documented as a scribe. Based on total visit time, I have performed more than 50% of this visit. Objective - Vital Signs Vital signs: Vital Signs Temp 97.3 F L 09/22/22 08:00 Pulse 56 L 09/22/22 12:00 Resp 16 09/22/22 12:00 BP 108/70 09/22/22 12:00 Pulse Ox 97 09/22/22 12:00 FiO2 Intake & Output 09/21/22 09/22/22 09/22/22 18:59 06:59 18:59 Intake Total 540 368 Output Total 900 Balance -360 368 Weight 106.2 kg Intake: IV 10 Invasive Line 2 10 Oral 540 358 Output: Urine 900 Other: Voiding Method Toilet Toilet Toilet Urinal Urinal - Labs CBC & Chem 7: 09/21/22 08:29 09/22/22 07:57 Labs: Abnormal Lab Results - Last 24 Hours (Table) 09/21/22 09/21/22 09/22/22 Range/Units 16:26 20:19 06:39 Carbon Dioxide (22-30) mmol/L BUN (9-20) mg/dL Glucose (74-99) mg/dL POC Glucose (mg/dL) 143 H 126 H 127 H (70-110) mg/dL 09/22/22 Range/Units 07:57 Carbon Dioxide 31 H (22-30) mmol/L BUN 31 H (9-20) mg/dL Glucose 141 H (74-99) mg/dL POC Glucose (mg/dL) (70-110) mg/dL Microbiology - Last 24 Hours (Table) 09/15/22 11:05 Blood Culture - Final Blood No Growth after 144 hours 09/15/22 10:50 Blood Culture - Final Blood No Growth after 144 hours Assessment and Plan Time with Patient: Less than 30
[2022-09-22 16:18] LABS: Glucose,Whole Blood 97 mg/dL (70-110)
--- NOTE | 2022-09-22 19:32 | P.PN ---
Subjective Progress Note Date: 09/22/22 Principal diagnosis: Left foot wound and cellulitis Patient is a 67-year-old male who has not seen a physician in many years presented to hospital with multiple symptoms including increasing shortness of breath bilateral worsening swelling and did have a nonhealing wound on the dorsum aspect of his left foot patient has been evaluated by vascular surgery and did have a bedside debridement on 09/16/2022 and cultures On today's evaluation and that is 09/22/2022, the patient continues to be afebrile, the patient is breathing comfortably on room air, the patient denies any chest pain, the patient denies any cough or sputum production, no nausea no vomiting no abdominal pain no diarrhea , pain to the left foot is currently controlled Objective - Vital Signs Vital signs: Vital Signs Temp 97.3 F L 09/22/22 08:00 Pulse 56 L 09/22/22 12:00 Resp 16 09/22/22 12:00 BP 108/70 09/22/22 12:00 Pulse Ox 97 09/22/22 12:00 FiO2 Intake & Output 09/21/22 09/22/22 09/22/22 18:59 06:59 18:59 Intake Total 540 368 Output Total 900 Balance -360 368 Weight 106.2 kg Intake: IV 10 Invasive Line 2 10 Oral 540 358 Output: Urine 900 Other: Voiding Method Toilet Toilet Toilet Urinal Urinal - Exam GENERAL DESCRIPTION: An elderly male up in the chair in no distress RESPIRATORY SYSTEM: Unlabored breathing , decreased breath sounds at bases HEART: S1 S2 regular rate and rhythm , ABDOMEN: Soft , no tenderness EXTREMITIES: Left foot dorsum wound currently dressed no drainage on dressing - Labs CBC & Chem 7: 09/21/22 08:29 09/22/22 07:57 Labs: Abnormal Lab Results - Last 24 Hours (Table) 09/21/22 09/21/22 09/22/22 Range/Units 16:26 20:19 06:39 Carbon Dioxide (22-30) mmol/L BUN (9-20) mg/dL Glucose (74-99) mg/dL POC Glucose (mg/dL) 143 H 126 H 127 H (70-110) mg/dL 09/22/22 Range/Units 07:57 Carbon Dioxide 31 H (22-30) mmol/L BUN 31 H (9-20) mg/dL Glucose 141 H (74-99) mg/dL POC Glucose (mg/dL) (70-110) mg/dL Microbiology - Last 24 Hours (Table) 09/15/22 11:05 Blood Culture - Final Blood No Growth after 144 hours 09/15/22 10:50 Blood Culture - Final Blood No Growth after 144 hours Assessment and Plan (1) Cellulitis Current Visit: Yes Status: Acute Code(s): L03.90 - CELLULITIS, UNSPECIFIED SNOMED Code(s): 095916159 (2) Wound of left foot Current Visit: Yes Status: Acute Code(s): S91.302A - UNSPECIFIED OPEN WOUND, LEFT FOOT, INITIAL ENCOUNTER SNOMED Code(s): 906585163 Plan: 1patient with a left lower extremity wound possibly started as a blister as the patient did have evidence of significant swelling to bilateral lower extremity and fluid overload and is being worked up for cardiac etiology under care of cardiology patient did have a necrotic base for the patient did have debridement done by vascular surgeon and deep cultures are currently growing MRSA, E. coli enterococcus and anaerobes 2-patient slowly clinically improving and will continue with vancomycin pharmacy to dose along with Rocephin and Flagyl , , patient did get a PICC line and plan is for 2 weeks of IV antibiotic on discharge prescription was provided to the dependency case manager Time with Patient: Less than 30
[2022-09-22 20:31] LABS: Glucose,Whole Blood 126 mg/dL (70-110)
[2022-09-22] MEDS: ATORVASTATIN 20 MG TAB PO SCH (20:56)
[2022-09-22] MEDS ORDERED: VANCOMYCIN TROUGH DUE 1 EACH MISC MISCELLANE ONE (23:00)
[2022-09-23 00:17] VITALS: RESP 16
[2022-09-23] MEDS: VANCOMYCIN 1,750 MG in SODIUM CHLORIDE 0.9% 500 ML 500 ML IVPB SCH ×2 (00:17→11:44)
[2022-09-23] MEDS: HEPARIN SODIUM,PORCINE/PF 5,000 UNIT/0.5 ML SYRINGE SQ SCH ×2 (00:17→09:34)
[2022-09-23 06:17] LABS: Glucose,Whole Blood 96 mg/dL (70-110)
[2022-09-23] MEDS: metFORMIN 500 MG TAB PO SCH (06:54)
--- NOTE | 2022-09-23 08:26 | PN ---
PROGRESS NOTE SUBJECTIVE: This gentleman came with a wound on his left foot dorsal aspect with skin necrosis. The patient had an extensive debridement. We have been using Santyl cream for local wound care. The patient has a PICC line for long-term antibiotic. PLAN: Offloading shoes for left foot. Continue with Santyl cream. If the patient goes home this week, I will follow up in my office on Wednesday. Dressing should be changed daily with Santyl cream. MMODL / IJN: [id number] /
[2022-09-23 09:33] VITALS: BP 83/50; PULSE 69; TEMP 97.5
[2022-09-23] MEDS: Acetaminophen-Codeine 300-30mg TAB PO PRN (09:33)
[2022-09-23] MEDS: ASPIRIN 81 MG PO SCH (09:34)
[2022-09-23] MEDS: metroNIDAZOLE 500 MG TAB PO SCH (09:34)
[2022-09-23] MEDS: METOPROLOL TARTRATE 50 MG TAB PO SCH (09:34)
[2022-09-23] MEDS: SPIRONOLACTONE 25 MG TAB PO SCH (09:34)
[2022-09-23] MEDS: FAMOTIDINE 20 MG TAB PO SCH (09:34)
[2022-09-23] MEDS: DAPAGLIFLOZIN PROPANEDIOL 10 MG TABLET PO SCH (09:34)
[2022-09-23] MEDS: FUROSEMIDE 10 MG/ML 4 ML VIAL IV SCH (09:34)
[2022-09-23] MEDS: COLLAGENASE 250 UNIT/GM OINTMENT 30 GM TUBE TOPICAL SCH (09:35)
[2022-09-23 10:19] LABS: African American GFR (CKD) >90 (>60 ml/min/1.73 sqM); Anion Gap 11 mmol/L; Blood Urea Nitrogen 27 mg/dL (9-20); Calcium 8.7 mg/dL (8.4-10.2); Carbon Dioxide 25 mmol/L (22-30); Chloride 103 mmol/L (98-107); Glucose 120 mg/dL (74-99); Non-African American GFR(CKD) >90 (>60 ml/min/1.73 sqM); Sodium 139 mmol/L (137-145)
[2022-09-23 10:20] LABS: Potassium 3.9 mmol/L (3.5-5.1)
[2022-09-23 11:22] LABS: Glucose,Whole Blood 102 mg/dL (70-110)
--- NOTE | 2022-09-23 11:33 | P.PN ---
Subjective Progress Note Date: 09/23/22 HISTORY OF PRESENT ILLNESS: This is a 67-year-old male that does not follow with a PCP usually goes to urgent care for medical care. Patient denies history of cardiac disease. Annita ent is not on any home medications. We have been asked to evaluate the patient for new heart failure. Patient presented to the hospital due to shortness of breath going on for a week and gradually worsening. He denies having any chest pain. Has been sleeping on 3 pillows. No PND. Patient has had increased edema to the lower extremities and cellulitis was diagnosed of the left lower leg. No fever or chills. No cough. EKG sinus rhythm with left ventricle hypertrophy, right bundle branch block Troponin negative 1. ProBNP 8850, CBC within normal limits. BUN 21, creatinine 0.8. Potassium 4.2. Blood sugar 219. Patient denies known history of diabetes Chest x-ray: Right lower lobe infiltrate and pleural effusion correlate for pneumonia. CTA no pulmonary embolism. Moderate bilateral pleural effusion right greater than left. 09/18 Patient is seen today in follow-up. Yesterday, echocardiogram revealed EF of 35% with pulmonary hypertension severe aortic stenosis. It was discussed with the patient that once his breathing status is improved and foot wound is healed, patient will need to undergo MICHELLE and right and left heart catheterization to assess the status of the coronaries and status of aortic valve for possible aortic valve replacement. He has been on IV Lasix 40 mg every 8 hours and metoprolol 50 mg twice daily (off coreg). Patient has been diuresing well and noted weight loss. Heart rate is running in the 60s and 70s in sinus rhythm Patient is also followed by Dr. Worley and Dr. Skinner regarding the left foot wound on antibiotics status post debridement. Repeat blood work reveals WBC 5.8, hemoglobin 12.7, platelet count 154. Sodium 139, potassium 3.7, BUN 38 and creatinine 1. 09/19 He reports that his breathing continues to feel better. He still has edema in bilateral lower extremities. He does not feel back at his baseline yet. He complains of left foot pain. Creatinine is stable 0.93. 09/20 He is doing well. Reports breathing continues to feel better. Weight down about 4 pounds. Denies any chest pain. Foot pain is tolerable. Creatinine stable at 0.96. ID following for IV antibiotics. 09/21/2022 Patient examined this morning at the bedside. Patient denies chest pain or pressure. He currently denies shortness of breath. Patient is laying flat in bed. He remains on IV Lasix. blood pressures are borderline with systolic blood pressures ranging between 80-90. telemetry reveals sinus mechanism with a heart rate in the 60s. echocardiogram reveals ejection fraction 35-40%. 09/22/2022 Patient examined this morning. Patient is sitting up in the chair. Patient appears to be improving clinically. He currently denies any shortness of breath. He denies any chest pain or pressure. Telemetry reveals sinus mechanism. He remains on IV Lasix 40 mg every 12 hours. He continues to have lower extremity edema. Creatinine 0.93. 09/23/2022 Patient examined this morning to bedside. Patient denies chest pain or pressure. Patient denies shortness of breath. He continues to have lower extremity edema. He currently has Rivera wraps to bilateral lower extremities. Blood pressure remains marginal. PHYSICAL EXAM: VITAL SIGNS: Reviewed. GENERAL: Well-developed in no acute distress. NECK: Supple. No JVD or thyromegaly LUNGS: Respirations even and unlabored. Lungs essentially clear to auscultation bilaterally. HEART: Regular rate and rhythm. S1 and S2 heard. + systolic murmur. EXTREMITIES: Normal range of motion. No clubbing or cyanosis. Peripheral pulses intact. 1-2+ bilateral pitting lower extremity edema ASSESSMENT: Shortness of breath Acute heart failure with reduced ejection fraction, EF 35-40% Severe aortic stenosis New diagnosis of diabetes, hemoglobin A1c 9.1 Left foot wound, s/p debridement PLAN: Continue current cardiac medications Continue IV lasix Daily weights, accurate I&O, and monitoring of kidney function Patient would benefit from RIVERA/ARB when blood pressure able to tolerate Patient will require MICHELLE, and L/R heart cath with Dr. Gray. To be scheduled at outpatient visit post discharge. Further recommendations pending patient course Nurse practitioner note has been reviewed by physician. Signing provider agrees with the documented findings, assessment, and plan of care. Objective - Vital Signs Vital signs: Vital Signs Temp 97.5 F L 09/23/22 08:00 Pulse 69 09/23/22 08:00 Resp 16 09/23/22 08:00 BP 83/50 09/23/22 08:00 Pulse Ox 95 09/23/22 09:05 FiO2 Intake & Output 09/22/22 09/23/22 09/23/22 18:59 06:59 18:59 Intake Total 1516 0 Output Total 2100 Balance 1516 -2100 0 Weight 105.2 kg Intake: IV 10 Invasive Line 2 10 Intake, IV Titration 550 Amount Vancomycin 1,750 mg In 500 Sodium Chloride 0.9% 500 ml 500 ml @ 167 mls/hr IVPB Q12H [facility] Rx#: [id number] cefTRIAXone 2 gm In 50 Sodium Chloride 0.9% 50 ml @ 100 mls/hr IVPB Q24HR [facility] Rx#:[id number] Oral 956 0 Output: Urine 2100 Other: Voiding Method Toilet Urinal # Voids 4 # Bowel Movements 1 - Labs CBC & Chem 7: 09/21/22 08:29 09/23/22 08:25 Labs: Abnormal Lab Results - Last 24 Hours (Table) 09/22/22 09/23/22 Range/Units 20:30 08:25 BUN 27 H (9-20) mg/dL Glucose 120 H (74-99) mg/dL POC Glucose (mg/dL) 126 H (70-110) mg/dL
[2022-09-23 14:02] VITALS: BMI 37.4
--- NOTE | 2022-09-24 21:49 | P.DS ---
Providers Date of admission: 09/15/22 14:37 Attending physician: Micah Pete Consults: 09/15/22 14:37 Consult Physician Routine Consulting Provider: [facility] Consult Reason/Comments: new chf Do you want consulting provider notified?: Yes 09/15/22 15:19 Consult Physician Routine Consulting Provider: Jim Skinner Consult Reason/Comments: left foot cellulitis/wound Do you want consulting provider notified?: Yes 09/16/22 14:05 Consult Physician Routine Consulting Provider: Geovanni Worley Consult Reason/Comments: left foot wound , debridemnt and deep cultures Do you want consulting provider notified?: Yes 09/17/22 10:30 Consult Physician Routine Consulting Provider: Chandler Li Consult Reason/Comments: eval for prob aortic valve surgery Do you want consulting provider notified?: Yes Primary care physician: Stated None Hospital Course: Final Diagnosis Acute CHF with severely reduced ejection fraction 35%. New onset. Severe aortic stenosis. Acute hypoxic respiratory failure secondary to above on room air now. Bilateral pleural effusion and mild ascites likely due to CHF improved Left diabetic foot wound on the dorsal surface with surrounding cellulitis s/p surgical debridement, polymicrobial culture with MDRO Diabetes type 2 A1c 9.1, not on medication outpatient. Morbid obesity Ongoing nicotine addiction and marijuana use Full Code Discharge Disposition Patient is discharged home in stable condition. Patient to follow up with cardiology recommending outpatient right and left cardiac catheterization and MICHELLE once infection resolves. Patient received PICC line for 2 weeks of outpatient IV ceftriaxone/vancomycin and also oral flagyl TID for 2 weeks. Local wound care to continue with daily dressing changes to left foot wound with santyl. Patient to follow up with Dr. Worley in the office on Wednesday09/25/22. Patient instructed to check CBG 3 x a day and keep log for follow up doctor appointment. Patient currently does not have a PCP and has been recommended to establish care on discharge. Patient to also follow up with Dr. ESTUARDO Gray for cardiology and also Dr Skinner with infectious disease. Patient to have repeat labs in [address] Skinner recommending Sed rate, CRP, CBC and BMP on weekly follow up. Patient will be followed with homecare services. Patient is also referred to outpatient diabetes education. -Patients blood pressure is marginal in the 100s systolic and cardiology recommending an JUAN/ARB once blood pressure can support. Hospital Course Patient is a 67-year-old male without significant past medical history, cu rrently everyday smoker and daily marijuana use presents to ER with complaints of worsening shortness of breath, exertional dyspnea. Symptoms have been present for the past 2 weeks patient also felt very weak. He has been having lower extremity worsening swelling. Was also having increased abdominal girth. Patient was using 3 pillows at home but still is becoming short of breath. Denies any complaints of chest pain. No nausea vomiting abdominal pain or diarrhea. Denies recent illnesses. No prior history of coronary artery disease.. Patient was having severe leg swelling and does have a wound over the dorsum of the left foot. No prior history of diabetes. Initial work up on chest xray and chest CTA show no pulmonary embolism there is moderate bilateral pleural effusions noted right greater than left with bilateral compressive atelectasis. Patient has evidence of mild ascites with nonobstructing renal calculus. There is soft tissue cellulitis found on xray of the left foot. Annita ent underwent surgical debridment of the left foot wound by vascular surgery and cultures were done showing MRSA, Group D enterococcus, group B strep, pantoea agglomerans and E.Coli. Patient was treated with IV vancomycin, IV ceftriaxone and flagyl to continue on discharge for 2 weeks of therapy. Patient had PICC line placed prior to discharge. Daily wound care in place with santyl. Cardiology workup for the pleural effusions and echocardiogram done showing severe aortic valve stenosis and evidence of new onset CHF with ejection fraction 35-40%. Patient treated with IV lasix with improvement in abdominal and lower extremity edema. Kidney function has remained stable. Cardiology recommending close follow up outpatient with Dr. ESTUARDO Gray and will require MICHELLE and L/R heart cath. Patient is discharged home with home care services. 09/23/2022 Patient is evaluated today sitting up in chair. Denies shortness of breath and denies chest pain. Denies dizziness or lightheadedness. Patients lower extremity edema is improved significant overnight with the bilateral JUAN wraps. His urine output has increased. He continues to report pain to the left foot wound and is receiving pain management and local wound care. His lungs are clear, diminished. S1 S2 is auscultated and abdomen is soft and nontender. Lower extremity edema has improved nonpitting. Wound to the left dorsum is dressed with santyl and gauze with some slough noted. Labs today showing sodium of 139, potassium of 3.9, BUN 27, creatinine 0.75, glucose of 102, calcium 8.7. Patient is afebrile, heart rate of 69, blood pressure 100/67 and 84/50, 95% room air. Please see medication reconciliation for a list of current medication. Thank you for allowing us to participate in the care of this patient. The impression and plan of care has been dictated by Pallavi Mathew, Nurse Practitioner as directed. Dr. Michael MD I have performed a history and physical examination and medical decision making of this patient, discussed the same with the dictator, and agree with the dictators assessment and plan as written, documented as a scribe. Based on total visit time, I have performed more than 50% of this visit. Patient Condition at Discharge: Stable Plan - Discharge Summary Discharge Rx Participant: Yes New Discharge Prescriptions: New Spironolactone [Aldactone] 25 mg PO DAILY #30 tab Dapagliflozin Propanediol [Farxiga] 10 mg PO DAILY #30 tab cefTRIAXone [Rocephin] 2 gm IVPB Q24HR 14 Days each Collagenase [Santyl Ointment] 1 applic TOPICAL DAILY each Vancomycin 1,750 mg IVPB Q12H 14 Days each Aspirin 81 mg PO DAILY #30 tab metroNIDAZOLE [Flagyl] 500 mg PO TID 14 Days #42 tab Fluticasone Nasal Weston [Flonase Nasal Weston] 2 spray EA NOSTRIL DAILY PRN ml PRN Reason: Allergy Symptoms metFORMIN HCL [Glucophage] 500 mg PO BID-W/MEALS #60 tab Atorvastatin [Lipitor] 20 mg PO HS #30 tab Metoprolol Tartrate [Lopressor] 50 mg PO BID #60 tab Famotidine [Pepcid] 20 mg PO Q12HR 15 Days #30 tab Acetaminophen-Codeine 300-30mg [Tylenol w/codeine #3] 1 each PO Q6HR PRN #12 tab PRN Reason: Pain Discharge Medication List Acetaminophen-Codeine 300-30mg [Tylenol w/codeine #3] 1 each PO Q6HR PRN #12 tab 09/23/22 [Rx] Aspirin 81 mg PO DAILY #30 tab 09/23/22 [Rx] Atorvastatin [Lipitor] 20 mg PO HS #30 tab 09/23/22 [Rx] Collagenase [Santyl Ointment] 1 applic TOPICAL DAILY each 09/23/22 [Rx] Dapagliflozin Propanediol [Farxiga] 10 mg PO DAILY #30 tab 09/23/22 [Rx] Famotidine [Pepcid] 20 mg PO Q12HR 15 Days #30 tab 09/23/22 [Rx] Fluticasone Nasal Weston [Flonase Nasal [place]] 2 spray EA NOSTRIL DAILY PRN ml 09/23/22 [Rx] Metoprolol Tartrate [Lopressor] 50 mg PO BID #60 tab 09/23/22 [Rx] Spironolactone [Aldactone] 25 mg PO DAILY #30 tab 09/23/22 [Rx] Vancomycin 1,750 mg IVPB Q12H 14 Days each 09/23/22 [Rx] cefTRIAXone [Rocephin] 2 gm IVPB Q24HR 14 Days each 09/23/22 [Rx] metFORMIN HCL [Glucophage] 500 mg PO BID-W/MEALS #60 tab 09/23/22 [Rx] metroNIDAZOLE [Flagyl] 500 mg PO TID 14 Days #42 tab 09/23/22 [Rx] Follow up Appointment(s)/Referral(s): [facility], [NON-STAFF] - Otilio Gray MD [STAFF PHYSICIAN] - 1 Week Porfirio Burt MD [STAFF PHYSICIAN] - 1-2 Days None,Stated [Primary Care Provider] - 1-2 days [facility], [REFERRING] - Geovanni Worley MD [STAFF PHYSICIAN] - 09/25/22 11:00 am Jim Skinner MD [STAFF PHYSICIAN] - 1 Week Ambulatory/Diagnostic Orders: Basic Metabolic Panel [LAB.AMB] Location: None Selected Basic Metabolic Panel [LAB.AMB] Time Frame: 3 Days, Location: None Selected C Reactive Protein [LAB.AMB] Location: None Selected Complete Blood Count w/diff [LAB.AMB] Location: None Selected Erythrocyte Sedimentation Rate [LAB.AMB] Location: None Selected Patient Instructions/Handouts: Low-Sodium Diet (DC), Diabetes and Nutrition (DC) Activity/Diet/Wound Care/Special Instructions: Glucometer and testing supplies filled at [facility] Patient needs glucometer and testing supplies at discharge to manage insulin dependent type II diabetes. Needs to check cbg 3x/day Recommend to establish care with a primary provider Recommend to see Dr. Burt or may chose another provider of your choice. Follow up as soon as possible. Follow up with Dr. Worley in his office on Wednesday Local wound care to continue with santyl dressing and to change daily Continue with pressure offloading shoe to the left foot. Patient needs to follow up with Dr. Skinner in the office and f/u labs per order Follow up with manager collection in 1 to 2 weeks Continue on oral lasix twice a day Continue to elevate legs while sitting and can use JUAN wrap bilateral legs as tolerated Follow diabetic and heart healthy diet Limit added sodium in diet. Recommend to follow up with outpatient diabetes education offered through [facility] [email or web address] [phone] [email or web address] [address] Discharge/Stand Alone Forms: Area PCPs Discharge Disposition: HOME WITH HOME HEALTH SERVICES
--- NOTE | 2022-09-27 20:55 | P.PN ---
Subjective Progress Note Date: 09/23/22 Principal diagnosis: Left foot wound and cellulitis Patient is a 67-year-old male who has not seen a physician in many years presented to hospital with multiple symptoms including increasing shortness of breath bilateral worsening swelling and did have a nonhealing wound on the dorsum aspect of his left foot patient has been evaluated by vascular surgery and did have a bedside debridement on 09/16/2022 and cultures On today's evaluation and that is 09/23/2022, the patient remains to be afebrile, the patient is breathing comfortably on room air, the patient denies chest pain, the patient denies any cough, the patient denies nausea no vomiting no abdominal pain no diarrhea , pain to the left foot has decreased in intensity Objective - Vital Signs Vital signs: Vital Signs Temp 97.5 F L 09/23/22 08:00 Pulse 69 09/23/22 12:56 Resp 16 09/23/22 12:56 BP 83/50 09/23/22 08:00 Pulse Ox 95 09/23/22 09:05 FiO2 Intake & Output 09/22/22 09/23/22 09/23/22 18:59 06:59 18:59 Intake Total 1516 0 Output Total 2100 Balance 1516 -2100 0 Weight 105.2 kg Intake: IV 10 Invasive Line 2 10 Intake, IV Titration 550 Amount Vancomycin 1,750 mg In 500 Sodium Chloride 0.9% 500 ml 500 ml @ 167 mls/hr IVPB Q12H DAVID Rx#: [id number] cefTRIAXone 2 gm In 50 Sodium Chloride 0.9% 50 ml @ 100 mls/hr IVPB Q24HR DAVID Rx#:[id number] Oral 956 0 Output: Urine 2100 Other: Voiding Method Toilet Urinal # Voids 4 # Bowel Movements 1 - Exam GENERAL DESCRIPTION: An elderly male up in the chair in no distress RESPIRATORY SYSTEM: Unlabored breathing , decreased breath sounds at bases HEART: S1 S2 regular rate and rhythm , ABDOMEN: Soft , no tenderness EXTREMITIES: Left foot dorsum wound currently dressed no drainage on dressing - Labs CBC & Chem 7: 09/21/22 08:29 09/23/22 08:25 Labs: Abnormal Lab Results - Last 24 Hours (Table) 09/22/22 09/23/22 Range/Units 20:30 08:25 BUN 27 H (9-20) mg/dL Glucose 120 H (74-99) mg/dL POC Glucose (mg/dL) 126 H (70-110) mg/dL Assessment and Plan (1) Cellulitis Status: Acute Code(s): L03.90 - CELLULITIS, UNSPECIFIED SNOMED Code(s): 183769765 (2) Wound of left foot Status: Acute Code(s): S91.302A - UNSPECIFIED OPEN WOUND, LEFT FOOT, INITIAL ENCOUNTER SNOMED Code(s): 441419133 Plan: 1patient with a left lower extremity wound possibly started as a blister as the patient did have evidence of significant swelling to bilateral lower extremity and fluid overload and is being worked up for cardiac etiology under care of cardiology patient did have a necrotic base for the patient did have debridement done by vascular surgeon and deep cultures are currently growing MRSA, E. coli enterococcus and anaerobes 2-patient as shown clinical improvement plan is to continue with vancomycin pharmacy to dose along with Rocephin and Flagyl 2 weeks and close outpatient follow-up
== END 2022-09-23 15:10 | disposition home health service (06) | DRG 622 ==
LOC: EC 10:33 → 3SCARD 14:37
PROVIDERS: ADMIT Internal Medicine; ATTEND Internal Medicine
PROC: 0JBR0ZZ Excision of Left Foot Subcutaneous Tissue and Fascia, Open Approach (ICD-10-PCS; principal; 2022-09-16)
PROC: 02HV33Z Insertion of Infusion Device into Superior Vena Cava, Percutaneous Approach (ICD-10-PCS; 2022-09-22)
DX: E11.621 Type 2 diabetes mellitus with foot ulcer (principal); I50.41 Acute combined systolic (congestive) and diastolic (congestive) heart failure; J96.01 Acute respiratory failure with hypoxia; E11.52 Type 2 diabetes mellitus with diabetic peripheral angiopathy with gangrene; L03.116 Cellulitis of left lower limb; J98.11 Atelectasis; R18.8 Other ascites; Z68.41 Body mass index [BMI] 40.0-44.9, adult; E11.628 Type 2 diabetes mellitus with other skin complications; E66.01 Morbid (severe) obesity due to excess calories; I35.0 Nonrheumatic aortic (valve) stenosis; F17.210 Nicotine dependence, cigarettes, uncomplicated; I27.20 Pulmonary hypertension, unspecified; L97.509 Non-pressure chronic ulcer of other part of unspecified foot with unspecified severity; N20.0 Calculus of kidney; Z20.822 Contact with and (suspected) exposure to COVID-19; Z28.310 Unvaccinated for COVID-19; Z28.21 Immunization not carried out because of patient refusal; Z79.899 Other long term (current) drug therapy
CPT/HCPCS: 36415; 36573; 71046; 71275; 74177; 80048; 80053; 80061; 80202; 83036; 83605; 83735; 83880; 84443; 84484; 85025; 85379; 85610; 85730; 87040; 87070; 87075; 87077; 87186; 87205; 87636; 93005; 93306; 94760; 96365; 96366; 96375; 99285